=== PATIENT | female | born 1950 | race Caucasian/White ===

== ENCOUNTER → 2020-06-07 15:44 | Outpatient (BNVA) | payer MEDICARE, MEDICAID, SELFPAY | PROVIDERS: Family Provider Nurse Practitioner; PCP Nurse Practitioner; Visit Provider Nurse Practitioner | DX: E03.8 Other specified hypothyroidism (principal); I10 Essential (primary) hypertension; E55.9 Vitamin D deficiency, unspecified | CPT/HCPCS: 80053; 80061; 82306; 84443; 85025 ==

== ENCOUNTER → 2020-10-30 13:38 | Outpatient (BNVA) | payer MEDICARE, MEDICAID, SELFPAY | PROVIDERS: Family Provider Nurse Practitioner; PCP Nurse Practitioner; Visit Provider Nurse Practitioner | DX: E55.9 Vitamin D deficiency, unspecified (principal); I10 Essential (primary) hypertension; E03.8 Other specified hypothyroidism | CPT/HCPCS: 80053; 82306; 84443; 85025 ==

== ENCOUNTER 2021-05-16 13:16 | Inpatient (IN) | payer MEDICARE, MEDICAID, SELFPAY ==
[2021-05-16 14:02] VITALS: BP 142/84; PULSE 111; RESP 16; TEMP 36.6; O2SAT 98; BMI 28.3
--- NOTE | 2021-05-16 14:04 | XR_ITS ---
WS: [id number] Left knee, 3 views, 05/16/2021 Clinical Data: fall, pain Comparison: None. Findings: There is a comminuted fracture of the distal left femur. There is posterior dislocation of the distal femoral fragment. Soft tissue swelling is present about the fracture site. The patella and left knee are intact. XR/XR knee LT 3V* [id number] Impression: Comminuted fracture of distal left femur.
--- NOTE | 2021-05-16 14:06 | W.ED.FALL ---
Documented by User: OMID Bonds 05/16/21 15:33 HPI - Fall General: Chief Complaint: Fall Stated Complaint: FALL/ SHOULDER AND KNEE PAIN Time Seen by Provider: 05/16/21 13:18 History of Present Illness: HPI Narrative: Patient arrived via ambulance complaint of left knee pain. Patient is states that she did hit her shoulder but her shoulder is not bothering now doing fine. Said she thinks maybe she twisted her broke her knee. She said she tripped on her bathroom mat denies any loss of consciousness. complaint: fall Onset (ago): minute(s) Fall from: standing Fall witnessed: no Loss of consciousness: None Context: tripped/slipped Location of injury - extremities: Left: knee Severity: mild Severity scale (1-10): 1 Quality: aching Associated symptoms-after fall: Reports no associated symptoms Review of Systems Const: Denies: fever(s) or chills Resp: Denies: dyspnea Musc: Reports: joint pain (Left knee hurts, left shoulder is fine now she says.) Psych: Denies: anxiety PFSH ED PFSH: Medical History Adult onset hypothyroidism Age-related osteoporosis without current pathological fracture Anemia, unspecified Arteriopathy, intracranial, associated with hemoglobinopathy, remote, resolved 1984 in [place] Chronic obstructive pulmonary disease, unspecified Chronic osteoarthritis Contracture, left foot Dependent on walker for ambulation Environmental and seasonal allergies Essential (primary) hypertension Gastro-esophageal reflux disease without esophagitis Hemiplegia, unspecified affecting left nondominant side Lives in assisted living facility Myofascial pain syndrome Nocturnal oxygen desaturation Urinary incontinence due to immobility Vitamin D deficiency Surgical History History of arteriovenous malformation (AVM) 1985 History of fracture of clavicle History of left hip replacement History of shoulder surgery History of total hysterectomy with bilateral salpingo-oophorectomy (BSO) Family History Mother Cancer Liver Other Hypertension Hypothyroid Social History Smoking and tobacco status: former smoker Lives independently: No Housing: Assisted Living Facility Current gender identity: Female Physical Exam Const: COMMON NORMALS: no acute distress Extremity: LEFT LOWER EXTREMITY: Yes knee joint (Tendernestopalpation no bruising no swelling. Patient does have a brace lo) Psych: COMMON NORMALS: mental status grossly normal Course Vital Signs: Vital signs: Vital Signs Temperature 97.7 F 05/22/21 17:10 Pulse Rate 90 05/22/21 17:10 Respiratory Rate 18 05/22/21 17:10 Blood Pressure 114/62 05/22/21 17:10 Pulse Oximetry 95 05/22/21 17:10 MDM - Fall MDM Narrative: Medical decision making narrative: Patient has left distal femur fracture. There are no beds available at this hospital. Will be plan on transferring patient when we find a bed available. After finding out that the patient can say her spoke with Dr. Cronin agrees to take patient speak to hospitalist and get patient bed. Some beds open per facility at 1500 patient wanting to stay here now I spoke with Dr. Guerin at 1529 admit to the hospitalist and he was here for surgery. Lab Data: Labs: Lab Results 05/16/21 05/16/21 05/16/21 Range/Units 14:42 14:50 14:50 WBC 11.6 H (4.0-10.0) 10^3/ uL RBC 3.79 L (4.1-5.3) 10^6/u L Hgb 12.5 (11.5-15.3) g/dL Hct 38.9 (37.0-47.0) % MCV 102.6 H (81-99) fL MCH 33.0 (28.0-34.0) pg MCHC 32.1 (30.0-36.0) g/dL RDW 12.1 (12.1-15.1) % Plt Count 228 (130-400) 10^3/c mm MPV 8.7 (7.4-10.4) fL Neut % (Auto) 85.2 % Lymph % (Auto) 7.3 % [place] % (Auto) 5.9 % Eos % (Auto) 0.2 % Baso % (Auto) 0.5 % Neut # (Auto) 9.86 H (1.8-7.7) 10^3/u L Lymph # (Auto) 0.8 (0.8-4.8) 10^3/u L [place] # (Auto) 0.7 (0.2-0.9) 10^3/u L Eos # (Auto) 0.0 (0.0-0.8) 10^3/u L Baso # (Auto) 0.1 (0.0-0.1) 10^3/u L Nucleated RBC % (a uto) 0 % Nucleated RBCs # 0.0 /100WBC Sodium 137 (136-145) mmol/L Potassium 5.0 (3.5-5.1) mmol/L Chloride 97 L (98-107) mmol/L Carbon Dioxide 31 H (22-29) mmol/L Anion Gap 14.0 (5-19) BUN 22 (8-23) mg/dL Creatinine 0.9 (0.5-0.9) mg/dL GFR Calculation 61.9 L (90-130) mL/min Glucose 112 (65-115) mg/dL Calculated Osmolal ity 288 (285-295) mOsm/k g Calcium 9.9 (8.5-10.5) mg/dL SARS-CoV-2 Ag (Rap id) Negative (Negative) Discharge Plan Discharge Patient Disposition: Admitted As Inpatient Admit Provider: Aury Hooks Clinical Impression: Femur fracture, left Condition: Stable Discharge Diet: Cardiac Discharge Activity: Limit activity as instructed Sign Out Sign Out Data: Patient Sign Out occurred on 05/16/21 at 16:09. Patient's care was discussed, and care was transferred from to Cristobal Wright DO. Coding Level of Care Code ED Private Household Worker for Chg Fwd Exam Expanded Problem Focused Documented by User: Cristobal Wright DO 05/16/21 16:11 HPI - Fall General: Chief Complaint: Fall Stated Complaint: FALL/ SHOULDER AND KNEE PAIN Time Seen by Provider: 05/16/21 13:18 PFSH ED PFSH: Medical History Adult onset hypothyroidism Age-related osteoporosis without current pathological fracture Anemia, unspecified Arteriopathy, intracranial, associated with hemoglobinopathy, remote, resolved 1984 in [place] Chronic obstructive pulmonary disease, unspecified Chronic osteoarthritis Contracture, left foot Dependent on walker for ambulation Environmental and seasonal allergies Essential (primary) hypertension Gastro-esophageal reflux disease without esophagitis Hemiplegia, unspecified affecting left nondominant side Lives in assisted living facility Myofascial pain syndrome Nocturnal oxygen desaturation Urinary incontinence due to immobility Vitamin D deficiency Surgical History History of arteriovenous malformation (AVM) 1984 History of fracture of clavicle History of left hip replacement History of shoulder surgery History of total hysterectomy with bilateral salpingo-oophorectomy (BSO) Family History Mother Cancer Liver Other Hypertension Hypothyroid Social History Smoking and tobacco status: former smoker Lives independently: No Housing: Assisted Living Facility Current gender identity: Female Course Vital Signs: Vital signs: Vital Signs Temperature 97.7 F 05/22/21 17:10 Pulse Rate 90 05/22/21 17:10 Respiratory Rate 18 05/22/21 17:10 Blood Pressure 114/62 05/22/21 17:10 Pulse Oximetry 95 05/22/21 17:10 MDM - Fall MDM Narrative: Medical decision making narrative: Reviewed case with Albert Hess DEPARTMENT OF MATHEMATICS CHAIR. We will go ahead and admit consult surgery.. Initially we were looking at transferring into an outside facility because there were no beds available. Nurse supervisor furnace room notified us that a bed had become available transfer was canceled will admit here. Lab Data: Labs: Lab Results 05/16/21 05/16/21 05/16/21 Range/Units 14:42 14:50 14:50 WBC 11.6 H (4.0-10.0) 10^3/ uL RBC 3.79 L (4.1-5.3) 10^6/u L Hgb 12.5 (11.5-15.3) g/dL Hct 38.9 (37.0-47.0) % MCV 102.6 H (81-99) fL MCH 33.0 (28.0-34.0) pg MCHC 32.1 (30.0-36.0) g/dL RDW 12.1 (12.1-15.1) % Plt Count 228 (130-400) 10^3/c mm MPV 8.7 (7.4-10.4) fL Neut % (Auto) 85.2 % Lymph % (Auto) 7.3 % [place] % (Auto) 5.9 % Eos % (Auto) 0.2 % Baso % (Auto) 0.5 % Neut # (Auto) 9.86 H (1.8-7.7) 10^3/u L Lymph # (Auto) 0.8 (0.8-4.8) 10^3/u L [place] # (Auto) 0.7 (0.2-0.9) 10^3/u L Eos # (Auto) 0.0 (0.0-0.8) 10^3/u L Baso # (Auto) 0.1 (0.0-0.1) 10^3/u L Nucleated RBC % (a uto) 0 % Nucleated RBCs # 0.0 /100WBC Sodium 137 (136-145) mmol/L Potassium 5.0 (3.5-5.1) mmol/L Chloride 97 L (98-107) mmol/L Carbon Dioxide 31 H (22-29) mmol/L Anion Gap 14.0 (5-19) BUN 22 (8-23) mg/dL Creatinine 0.9 (0.5-0.9) mg/dL GFR Calculation 61.9 L (90-130) mL/min Glucose 112 (65-115) mg/dL Calculated Osmolal ity 288 (285-295) mOsm/k g Calcium 9.9 (8.5-10.5) mg/dL SARS-CoV-2 Ag (Rap id) Negative (Negative) Discharge Plan Discharge Patient Disposition: Admitted As Inpatient Admit Provider: Aury Hooks Clinical Impression: Femur fracture, left Condition: Stable Discharge Diet: Cardiac Discharge Activity: Limit activity as instructed Sign Out Sign Out Data: Patient Sign Out occurred on 05/16/21 at 16:09. Patient's care was discussed, and care was transferred from to Cristobal Wright DO. Coding Level of Care Code ED Private Household Worker for Chg Fwd Exam Expanded Problem Focused Documented by User: Jose Reyes MD 05/26/21 11:04 HPI - Fall General: Chief Complaint: Fall Stated Complaint: FALL/ SHOULDER AND KNEE PAIN Time Seen by Provider: 05/16/21 13:18 PFSH ED PFSH: Medical History Adult onset hypothyroidism Age-related osteoporosis without current pathological fracture Anemia, unspecified Arteriopathy, intracranial, associated with hemoglobinopathy, remote, resolved 1984 in [place] Chronic obstructive pulmonary disease, unspecified Chronic osteoarthritis Contracture, left foot Dependent on walker for ambulation Environmental and seasonal allergies Essential (primary) hypertension Gastro-esophageal reflux disease without esophagitis Hemiplegia, unspecified affecting left nondominant side Lives in assisted living facility Myofascial pain syndrome Nocturnal oxygen desaturation Urinary incontinence due to immobility Vitamin D deficiency Surgical History History of arteriovenous malformation (AVM) 1984 History of fracture of clavicle History of left hip replacement History of shoulder surgery History of total hysterectomy with bilateral salpingo-oophorectomy (BSO) Family History Mother Cancer Liver Other Hypertension Hypothyroid Social History Smoking and tobacco status: former smoker Lives independently: No Housing: Assisted Living Facility Current gender identity: Female Course Vital Signs: Vital signs: Vital Signs Temperature 97.7 F 05/22/21 17:10 Pulse Rate 90 05/22/21 17:10 Respiratory Rate 18 05/22/21 17:10 Blood Pressure 114/62 05/22/21 17:10 Pulse Oximetry 95 05/22/21 17:10 MDM - Fall Lab Data: Labs: Lab Results 05/16/21 05/16/21 05/16/21 Range/Units 14:42 14:50 14:50 WBC 11.6 H (4.0-10.0) 10^3/ uL RBC 3.79 L (4.1-5.3) 10^6/u L Hgb 12.5 (11.5-15.3) g/dL Hct 38.9 (37.0-47.0) % MCV 102.6 H (81-99) fL MCH 33.0 (28.0-34.0) pg MCHC 32.1 (30.0-36.0) g/dL RDW 12.1 (12.1-15.1) % Plt Count 228 (130-400) 10^3/c mm MPV 8.7 (7.4-10.4) fL Neut % (Auto) 85.2 % Lymph % (Auto) 7.3 % [place] % (Auto) 5.9 % Eos % (Auto) 0.2 % Baso % (Auto) 0.5 % Neut # (Auto) 9.86 H (1.8-7.7) 10^3/u L Lymph # (Auto) 0.8 (0.8-4.8) 10^3/u L [place] # (Auto) 0.7 (0.2-0.9) 10^3/u L Eos # (Auto) 0.0 (0.0-0.8) 10^3/u L Baso # (Auto) 0.1 (0.0-0.1) 10^3/u L Nucleated RBC % (a uto) 0 % Nucleated RBCs # 0.0 /100WBC Sodium 137 (136-145) mmol/L Potassium 5.0 (3.5-5.1) mmol/L Chloride 97 L (98-107) mmol/L Carbon Dioxide 31 H (22-29) mmol/L Anion Gap 14.0 (5-19) BUN 22 (8-23) mg/dL Creatinine 0.9 (0.5-0.9) mg/dL GFR Calculation 61.9 L (90-130) mL/min Glucose 112 (65-115) mg/dL Calculated Osmolal ity 288 (285-295) mOsm/k g Calcium 9.9 (8.5-10.5) mg/dL SARS-CoV-2 Ag (Rap id) Negative (Negative) Discharge Plan Discharge Patient Disposition: Admitted As Inpatient Admit Provider: Aury Hooks Clinical Impression: Femur fracture, left Condition: Stable Discharge Diet: Cardiac Discharge Activity: Limit activity as instructed Sign Out Sign Out Data: Patient Sign Out occurred on 05/16/21 at 16:09. Patient's care was discussed, and care was transferred from to Cristobal Wright DO. Coding Level of Care Code ED Private Household Worker for Chg Fwd Exam Expanded Problem Focused
--- NOTE | 2021-05-16 14:34 | ECG_ITS ---
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 Measurements Intervals [place] Rate: 98 P: 46 GA: 156 QRS: -24 QRSD: 81 T: 31 QT: 314 QTc: 401 Interpretive Statements SINUS RHYTHM POSSIBLE LEFT ATRIAL ENLARGEMENT [-0.1mV P WAVE IN V1/V2] BORDERLINE LEFT AXIS DEVIATION [QRS AXIS < -20] POSSIBLE LEFT VENTRICULAR HYPERTROPHY [VOLTAGE CRITERIA PLUS LAE OR QRS WIDENING] Compared to ECG 12/09/2018 15:49:19 T-wave abnormality no longer present Electronically Signed On 05-17-2021 6:13:55 CDT by Millie Concepcion M.D. [email or web address]
[2021-05-16 15:01] LABS: Basophils # 0.1 10^3/uL (0.0-0.1); Basophils % 0.5 %; Eosinophils % 0.2 %; Hematocrit 38.9 % (37.0-47.0); Hemoglobin 12.5 g/dL (11.5-15.3); Lymphocytes # 0.8 10^3/uL (0.8-4.8); Lymphocytes % 7.3 %; Mean Corpuscular HGB Conc 32.1 g/dL (30.0-36.0); Mean Corpuscular Volume 102.6 fL (81-99); Mean Platelet Volume 8.7 fL (7.4-10.4); Monocytes # 0.7 10^3/uL (0.2-0.9); Monocytes % 5.9 %; Neutrophils # 9.86 10^3/uL (1.8-7.7); Neutrophils % 85.2 %; Nucleated Red Blood Cells % 0 %; Platelet Count 228 10^3/cmm (130-400); Red Blood Count 3.79 10^6/uL (4.1-5.3); Red Cell Distribution Width 12.1 % (12.1-15.1); White Blood Count 11.6 10^3/uL (4.0-10.0)
[2021-05-16 15:17] LABS: SARS Covid-2 Antigen Negative (Negative)
[2021-05-16 15:19] LABS: Blood Urea Nitrogen 22 mg/dL (8-23); Calcium 9.9 mg/dL (8.5-10.5); Carbon Dioxide 31 mmol/L (22-29); Chloride 97 mmol/L (98-107); Glomerular Filtration Rate 61.9 mL/min (90-130); Glucose 112 mg/dL (65-115); Osmolality Calculated 288 mOsm/kg (285-295); Sodium 137 mmol/L (136-145)
[2021-05-16 16:06] VITALS: BP 188/120; PULSE 108; RESP 16; O2SAT 100
[2021-05-16 19:00] VITALS: BP 159/83; PULSE 109; RESP 16; O2SAT 95
[2021-05-16 20:05] VITALS: BP 142/76; PULSE 97; RESP 18; TEMP 36.7; O2SAT 97
[2021-05-16] MEDS: D5-NS 0.45% + KCL 20 mEq 20 MEQ/1,000 ML BAG 100 MEQ IV (20:49)
[2021-05-16 21:46] VITALS: RESP 18
[2021-05-16] MEDS: HYDROmorphone 1 mg/mL INJ 1 mL 0.2 MG IVP (21:46)
[2021-05-16 23:15] VITALS: BP 134/85; PULSE 88; RESP 18; TEMP 36.8; O2SAT 96
[2021-05-17] VITALS (22 sets, daily range): BP systolic 82–149; BP diastolic 63–98; PULSE 60–108; RESP 12–21; TEMP 36.1–38.1; O2SAT 92–100
--- NOTE | 2021-05-17 | SCC_ITS ---
Procedure Done: Open reduction internal fixation left supracondylar femur 110.5 seconds of fluoroscopic guidance, for a cumulative dose of 9.6 mGy, was provided to Dr. Guerin by the radiology department. C-arm images of the LEFT femur were saved for the patient's permanent record. [facility]
[2021-05-17] MEDS: HYDROmorphone 1 mg/mL INJ 1 mL 0.2 MG IVP (02:27)
--- NOTE | 2021-05-17 06:00 | PC.NURSE ---
pt down to surgery
--- NOTE | 2021-05-17 06:40 | P.ANESASSM_ITS ---
Pre-Anesthetic Assessment Pre-Anesthetic Assessment: Height/Weight: Height 1.6 m Weight 72.575 kg Temp Pulse Resp BP Pulse Ox 97.9 F 88 18 143/66 96 05/17/21 04:45 05/17/21 04:45 05/17/21 04:45 05/17/21 04:45 05/17/21 04:45 Preop Diagnosis: Femur Fracture Proposed Procedure: Operation Date: 05/17/21 07:30 Proposed Procedures p ORIF Femur(Left) - Farhad Guerin MD Familial anesthetic complications: none Was Beta Bruce taken within 24 hours: N/A Was Clonidine taken within 24 hours: N/A Last intake: > 8 hrs Social: Social History: No alcohol and No tobacco Exam: Pre-Anes Outpt Exam: alert, oriented x 3, clear to auscultation sunitha aterally and regular rate & rhythm Airway: Cervical ROM: WNL MP: 2 Dentition: Full Pulmonary: Pulmonary: COPD (On 2 L NC at home, periodic shortness of breath) CV/HEM: CV/HEM: HTN GI: GI: GERD Metabolic: Metabolic: Thyroid Neuropsych: Comments: L hemiplegia/immobility - 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 AVM Anesthetic Plan: ASA status: 4 Anesthesia: Regional (specify below) (spinal) Risk of > 500 ml blood loss (7ml/kg in children): No Meds/Allergies Current Medications: Current Medications Generic Name Dose Route Start Last Admin Trade Name Freq PRN Reason Stop Dose Admin Hydromorphone HCl 0.2 mg 05/16/21 21:11 05/17/21 02:27 Hydromorphone 1 Mg/Ml Inj 1 Ml IVP 0.2 mg Q4H PRN Administration SEVERE PAIN Potassium Chloride /Dextrose/Sod Cl 20 meq in 1,000 m ls @ 100 mls/hr 05/16/21 19:44 05/16/21 20:49 D5-Ns 0.45% + Kaushik l 20 Meq IV 100 mls/hr .Q10H BUFFY Administration PFSH Anesthesia PFSH: Medical History Adult onset hypothyroidism Age-related osteoporosis without current pathological fracture Anemia, unspecified Arteriopathy, intracranial, associated with hemoglobinopathy, remote, resolved 1984 in [place] Chronic obstructive pulmonary disease, unspecified Chronic osteoarthritis Contracture, left foot Dependent on walker for ambulation Environmental and seasonal allergies Essential (primary) hypertension Gastro-esophageal reflux disease without esophagitis Hemiplegia, unspecified affecting left nondominant side Lives in assisted living facility Myofascial pain syndrome Nocturnal oxygen desaturation Urinary incontinence due to immobility Vitamin D deficiency Surgical History History of arteriovenous malformation (AVM) 1985 History of fracture of clavicle History of left hip replacement History of shoulder surgery History of total hysterectomy with bilateral salpingo-oophorectomy (BSO) Family History Mother Cancer Liver Other Hypertension Hypothyroid Social History Smoking and tobacco status: former smoker Lives independently: No Housing: Assisted Living Facility Current gender identity: Female Data Anesthesia CBC & Chem 7: 05/16/21 14:50 05/16/21 14:50 Other Labs: Laboratory Results - last 48 hr 05/16/21 05/16/21 05/16/21 14:42 14:50 14:50 WBC 11.6 H RBC 3.79 L Hgb 12.5 Hct 38.9 MCV 102.6 H MCH 33.0 MCHC 32.1 RDW 12.1 Plt Count 228 MPV 8.7 Neut % (Auto) 85.2 Lymph % (Auto) 7.3 [place] % (Auto) 5.9 Eos % (Auto) 0.2 Baso % (Auto) 0.5 Neut # (Auto) 9.86 H Lymph # (Auto) 0.8 [place] # (Auto) 0.7 Eos # (Auto) 0.0 Baso # (Auto) 0.1 Nucleated RBC % (auto) 0 Nucleated RBCs # 0.0 Sodium 137 Potassium 5.0 Chloride 97 L Carbon Dioxide 31 H Anion Gap 14.0 BUN 22 Creatinine 0.9 GFR Calculation 61.9 L Glucose 112 Calculated Osmolality 288 Calcium 9.9 SARS-CoV-2 Ag (Rapid) Negative Cardiac Studies: No Data to Display
[2021-05-17 06:43] LABS: Basophils % 0.4 %; Eosinophils % 0.4 %; Hematocrit 31.5 % (37.0-47.0); Hemoglobin 9.9 g/dL (11.5-15.3); Lymphocytes # 1.6 10^3/uL (0.8-4.8); Lymphocytes % 19.7 %; Mean Corpuscular HGB Conc 31.4 g/dL (30.0-36.0); Mean Corpuscular Hemoglobin 33.4 pg (28.0-34.0); Mean Corpuscular Volume 106.4 fL (81-99); Mean Platelet Volume 9.4 fL (7.4-10.4); Monocytes # 0.8 10^3/uL (0.2-0.9); Monocytes % 10.4 %; Neutrophils # 5.52 10^3/uL (1.8-7.7); Neutrophils % 68.6 %; Nucleated Red Blood Cells % 0 %; Platelet Count 218 10^3/cmm (130-400); Red Blood Count 2.96 10^6/uL (4.1-5.3); Red Cell Distribution Width 12.2 % (12.1-15.1)
[2021-05-17 07:04] LABS: Anion Gap 11.9 (5-19); Blood Urea Nitrogen 20 mg/dL (8-23); Calcium 8.8 mg/dL (8.5-10.5); Carbon Dioxide 28 mmol/L (22-29); Chloride 101 mmol/L (98-107); Creatinine Clr Calc Pharmacy 62.4647; Glomerular Filtration Rate 70.9 mL/min (90-130); Glucose 109 mg/dL (65-115); Osmolality Calculated 285 mOsm/kg (285-295); Potassium 4.9 mmol/L (3.5-5.1); Sodium 136 mmol/L (136-145)
--- NOTE | 2021-05-17 07:07 | P.CONIM_ITS ---
Providers/Reason For Consult Consulting Physician/Specialty*: Farhad Guerin MD orthopedic surgery Reason for Consult*: Left supracondylar femur fracture Attending Physician: Aury Hooks Primary Care Provider: ALHAJI Melgoza History of Present Illness History of Present Illness Nicole Oseguera is a 71 year old female tripped over a bathroom floor mat yet pain in her left knee. She was transferred to our emergency room radiographs revealed she denies any neck or back or other extremity pain. a supracondylar left femur fracture. She is admitted to medicine and orthopedics is consulted for management of that. 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 She is ambulatory with a brace on the left and a walker. Meds/Allergies Home Medications and Allergies Home Medications Medication Instructions Recorded Confirmed Last Taken Type acetaminophen 325 mg capsule 650 mg PO Q6H PRN 12/02/19 05/16/21 Unknown History albuterol sulfate 2.5 mg INHALATION BID@0800,199912/02/19 05/16/21 05/16/21 History calcium 600 mg-D3 800 unit-mag11 1 tab PO BID@08,199912/02/19 05/16/21 05/16/21 History 50 hk-vtzp-huvwjp-etta-s.borat tablet carbamazepine 200 mg tablet 200 mg PO BID@08,199912/02/19 05/16/21 05/16/21 History diaper,brief,adult,disposable #120 each 12/02/19 05/16/21 Unknown Rx fluticasone fur. 100 mcg-umeclid 1 inh INHALATION Q24H #28 each 12/02/19 05/16/21 05/16/21 Rx 62.5 mcg-vilant 25 mcg inhalat.powder guaifenesin 600 mg tablet, 600 mg PO BID@799,199912/02/19 05/16/21 05/16/21 History extended release 12 hr pantoprazole 40 mg tablet,delayed 40 mg PO DAILY@0800 12/02/19 05/16/21 05/16/21 History release potassium chloride 10 mEq 10 meq PO BID@0800,199912/02/19 05/16/21 05/16/21 History capsule,extended release guaifenesin 100 mg/5 mL oral liquid 200 mg PO Q4H PRN #473 ml 06/01/20 05/16/21 Unknown Rx Left foot and leg brace #1 ea 07/21/20 05/16/21 Unknown Rx furosemide 20 mg tablet 20 mg PO DAILY@0800 tab 08/22/20 05/16/21 05/16/21 History cyclobenzaprine 10 mg tablet 10 mg PO TID PRN #90 tab 03/06/21 05/16/21 05/16/21 Rx Celebrex 100 mg PO BID@08,199905/16/21 05/16/21 05/16/21 History Milk of Magnesia 30 ml PO Q4H PRN 05/16/21 05/16/21 Unknown History Zyrtec 10 mg PO DAILY@79905/16/21 05/16/21 05/16/21 History albuterol sulfate [ProAir HFA] 2 puff INHALATION Q6H PRN 05/16/21 05/16/21 Unknown History calcium carbonate [Tums 500] 500 mg PO QID PRN 05/16/21 05/16/21 Unknown History cholecalciferol (vitamin D3) 125 mcg PO DAILY@0805/16/21 05/16/21 05/16/21 History levothyroxine 50 mcg PO DAILY@59905/16/21 05/16/21 05/16/21 History multivitamin,tx-minerals [Super 1 tab PO DAILY 05/16/21 05/16/21 05/16/21 History Thera Galina M] sodium chloride 1,000 mg PO BID@799,199905/16/21 05/16/21 05/16/21 History valsartan 80 mg PO DAILY@0805/16/21 05/16/21 05/16/21 History Allergies Allergy/AdvReac Type Severity Reaction Status Date / Time codeine Allergy Unknown Unknown Verified 05/16/21 14:06 morphine Allergy Unknown Unknown Verified 05/16/21 14:06 lisinopril AdvReac Intermediate Cough Verified 05/16/21 14:06 Current Medications Current Medications Generic Name Dose Route Start Last Admin Trade Name Freq PRN Reason Stop Dose Admin Hydromorphone HCl 0.2 mg 05/16/21 21:11 05/17/21 02:27 Hydromorphone 1 Mg/Ml Inj 1 Ml IVP 0.2 mg Q4H PRN Administration SEVERE PAIN Potassium Chloride/Dextrose/Sod Cl 20 meq in 1,000 mls @ 100 mls/hr 05/16/21 19:44 05/17/21 06:48 D5-Ns 0.45% + Kcl 20 Meq IV Infused .Q10H BUFFY Infusion PFSH Acute PFSH: Medical History Adult onset hypothyroidism Age-related osteoporosis without current pathological fracture Anemia, unspecified Arteriopathy, intracranial, associated with hemoglobinopathy, remote, resolved 1984 in [place] Chronic obstructive pulmonary disease, unspecified Chronic osteoarthritis Contracture, left foot Dependent on walker for ambulation Environmental and seasonal allergies Essential (primary) hypertension Gastro-esophageal reflux disease without esophagitis Hemiplegia, unspecified affecting left nondominant side Lives in assisted living facility Myofascial pain syndrome Nocturnal oxygen desaturation Urinary incontinence due to immobility Vitamin D deficiency Surgical History History of arteriovenous malformation (AVM) 1984 History of fracture of clavicle History of left hip replacement History of shoulder surgery History of total hysterectomy with bilateral salpingo-oophorectomy (BSO) Family History Mother Cancer Liver Other Hypertension Hypothyroid Social History Smoking and tobacco status: former smoker Lives independently: No Housing: Assisted Living Facility Current gender identity: Female Vitals/I&O/Wt Last Vital Signs Temp 97.9 F 05/17/21 04:45 Pulse 93 05/17/21 06:50 Resp 18 05/17/21 06:50 BP 122/98 05/17/21 06:50 Pulse Ox 96 05/17/21 06:50 05/16/21 05/17/21 05/17/21 22:59 06:59 14:59 Intake Total 120 / 120 1000 / 1120 Balance 120 / 120 1000 / 1120 Weight last 48 hrs Weight 160 lb Physical Exam Narrative: EXAM NARRATIVE: HEAD: Normocephalic/atraumatic. NECK: Soft supple nontender. HEART: Normal heart sounds, regular rhythm. CHEST: Clear to auscultation. ABDOMEN: Soft nontender nondistended. LEFT LEG Patient has swelling and internal rotation of the left distal femur. 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 Sensation is intact light touch Data Imaging^: Xray Ortho: My impression: 2 views of the left knee are reviewed. The patient has a fractur e of the left supracondylar femur. I can see no intra-articular displacement A&P Assessment and plan (1) Femur fracture, left: The patient has a displaced left I told her the best option for pain control and to allow her to be mobilized would be surgical stabilization. She has significant underlying osteopenia and I think intramedullary device would be our best choice. I discussed risk of nonunion and malunion. I discussed risk of medical complications. She has a significant vascular history. Medicine is admitting and will assist with management of medical comorbidities. Discussed risk of deep venous thromboses and pulmonary emboli. I discussed anesthetic risk. I see no obvious medical contraindications. We will proceed to surgery this morning. Status: Acute Coding Level of Care Code Acute Medical Investigator for [facility] Diagnoses Femur fracture, left S72.92XA
[2021-05-17] MEDS: sodium chloride 0.9% 1,000 ML 30 ML IV (07:09)
--- NOTE | 2021-05-17 10:27 | XR_ITS ---
WS: [id number] Left femur and thigh, C-arm fluoroscopy in the OR, 05/17/2021 Clinical Data: OR PICS Comparison: Left knee, 05/16/2021. Findings: There is an intramedullary chase in the distal left femur fixed with proximal and distal screws. The chase is reducing the comminuted fracture of the distal left femur. XR/XR femur LT min 2V* [id number] Impression: Internal fixation of comminuted fracture of distal left femur.
--- NOTE | 2021-05-17 10:34 | P.PCN_ITS ---
PACU note PACU note: VSS, Good respiratory effort, report to CHIEF INFORMATION SECURITY OFFICER Post-Anesthesia Exam: awake
--- NOTE | 2021-05-17 10:34 | PM.PACU ---
PACU note PACU note: VSS, Good respiratory effort, report to CONSULTING SALES EXECUTIVE Post-Anesthesia Exam: awake
--- NOTE | 2021-05-17 10:41 | PM.OP ---
Operative Report Date of procedure: May 17, 2021 Pre-op Diagnosis: Left supracondylar femur Fracture Post-op diagnosis: same Post-op Findings: Same Procedure Done: Open reduction internal fixation left supracondylar femur Implants: [place] T2 SCN nail [id number] Pathology: none sent Surgeon: Farhad Guerin Anesthesia: Nerve Block (Spinal) Estimated blood loss (mL): 200 Findings: The patient had a comminuted left supracondylar femur fracture. Condition: stable Disposition: PACU Procedure: The patient was taken to the operating room and given a spinal anesthesia. She is given 2 g of Ancef. She is prepped and draped the supine position with her left leg exposed a timeout was performed. A 10 cm long incision incision was made over the anterior knee and the knee entered through a medial parapatellar approach. The patella could be displaced laterally. With traction across the femur and a bone hook applied along the lateral distal fragment cortex of the femur could be brought and maintained out to length. A guidepin was driven from a point just anterior to the intercondylar notch proximally into the proximal fragment. Over this was passed the proximal reamer. A ball-tipped guidepin was passed and sequential reaming was performed up to the tip of a previously placed hip arthroplasty to a 14 reamer. Length of the pin buried in the femur was identified and found to be 220mm. A 200 x 13 mm diameter nail was chosen and passed down the canal with minimal difficulty. Working through the incision to lateral toe medial bolts were placed in the proximal and distal screws. Anterior lateral and posterior lateral directed screw were placed to the central holes with a modest purchase. The targeting guide was then placed and 2 lateral to medial screws placed. Wounds were irrigated with saline. The 2 lateral openings used to place proximal locking screws and 2 medial openings used to place knots were closed with deep 0 Vicryl. The parapatellar incision was closed with a running 1 Stratafix, subcutaneous fat with 2-0 Stratafix and the skin was closed with a running 3 oh Stratafix. Incisions were covered with Xeroflo gauze 4 x 4's ABD pads. Her leg was wrapped in a compressive web roll and Jayme wrap dressing and placed in a knee immobilizer. She was taken recovery in stable condition.
--- NOTE | 2021-05-17 11:41 | PC.OT ---
Order received. Will see tomorrow in order to allow recovery from surgery.
[2021-05-17] MEDS: oxyCODONE 5 mg IR Tab/Cap PO ×3 (13:06→20:22)
--- NOTE | 2021-05-17 13:54 | PC.CHAP ---
Pastoral Care Encounter/Spiritual Assessment Type of Contact [] Declined patcher bowling ball visit [] Patient/Family/Request visit [] Outpatient visit [] Follow-up visit [] Physician referral [] Code/Alert [] Routine visit [] Staff referral [] Actively dying [] Patient sleeping [] Family support [] [xx] Out of room [] Palliative care [] [] Receiving care in room [] Pre-surgical visit [] Trauma [] Long length of stay [] ICU visit [xx] Other: Patient out of room for surgery. Relational/Emotional Strength [] Patient feels connected with others/family/visitors/staff [] Distress [] Loneliness/isolation [] Abandonment Spirituality of Patient [] Person of Yovana [] Attends Latter-Day of their Yovana [] Believes in Prayer [] Reads Bible or Church materials [] There are Spiritual issues to be addressed Porcelain Finisher Interventions [] Prayer [] Active listening [] Non-anxious presence [] Spiritual/emotional support [] Crisis/trauma care [] Spiritual counseling [] Bereavement support [] Provided bereavement packet [] Provided Bible/devotional materials [] Provided toy/stuffed animal, coloring book to patient or family member [] Provided Communion [] Anointing/[place] [] Salvation [] Completed spiritual assessment [] Other: Impact on Illness or Injury [] Angry [] Fearful [] Anxious [] Often cries [] Exhaustion [] Unable to work [] Unable to attend holiness [] Unable to walk/stand [] Unable to read [] Unable to drive [] Unable to eat/drink [] Unable to sleep [] Unable to be with family [] Patient intubated [] Other: Summary Follow up later Time spent with patient 1 minute
[2021-05-17] MEDS: cyclobenzaprine 10 mg Tablet PO (14:29)
--- NOTE | 2021-05-17 15:23 | ANE.PACU2 ---
Inpatient post-anesthesia follow up: Airway intact: Yes Vital signs: Temperature 98.0 F Pulse Rate [Apical ] 111 Pulse Rate 88 Respiratory Rate 20 Blood Pressure [Le ft Arm] 142/84 Blood Pressure 138/85 Pulse Oximetry 98 Oxygen Delivery Me thod Nasal Cannula Oxygen Flow Rate 4 Fraction of Inspir ed Oxygen Hydration adequate: Yes Nausea and vomiting: No Pain level: 2 Mental status: Baseline
--- NOTE | 2021-05-17 15:37 | P.HP_ITS ---
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 Appa rently patient had been complaining of left knee pain. She was noted to have a supracondylar left femoral fracture.Patient was seen by orthopedic surgery and taken to OR todayFor open reduction internal fixation of left supracondylar femoral fracture. Postoperatively patient was complaining of pain otherwise stable. She had denies any symptoms prior to the fall. No head trauma or loss of conscious.Laboratory workup initially on 05/16/2021 had showed a WBC of 11.6, hemoglobin 12.5, hematocrit 38.9 and platelet count 228. Sodium 137, potassium 5.0, chloride 97, bicarb 31, BUN 22 and creatinine of 0.9. COVID-19 was negative. Review of Systems General: Reports: 10 or more systems reviewed and unremarkable except in HPI and below Medications/Allergies Home Medications Medication Instructions Recorded Confirmed Last Taken Type acetaminophen 325 mg capsule 650 mg PO Q6H PRN 12/02/19 05/16/21 Unknown History albuterol sulfate 2.5 mg INHALATION BID@799,1999 ml 12/02/19 05/16/21 05/16/21 History calcium 600 mg-D3 800 unit-mag11 1 tab PO BID@12/02/19 05/16/21 05/16/21 History 50 mb-dyhk-ivvrso-etta-s.borat tablet carbamazepine 200 mg tablet 200 mg PO BID@0800,199912/02/19 05/16/21 05/16/21 History diaper,brief,adult,disposable #120 each 12/02/19 05/16/21 Unknown Rx fluticasone fur. 100 mcg-umeclid 1 inh INHALATION Q24H #28 each 12/02/19 05/16/21 05/16/21 Rx 62.5 mcg-vilant 25 mcg inhalat.powder guaifenesin 600 mg tablet, 600 mg PO BID@12/02/19 05/16/2121 History extended release 12 hr pantoprazole 40 mg tablet,delayed 40 mg PO DAILY@0812/02/19 05/16/21 05/16/21 History release potassium chloride 10 mEq 10 meq PO BID@0800,199912/02/19 05/16/21 05/16/21 History capsule,extended release guaifenesin 100 mg/5 mL oral liquid 200 mg PO Q4H PRN #473 ml 06/01/20 05/16/21 Unknown Rx Left foot and leg brace #1 ea 07/21/20 05/16/21 Unknown Rx furosemide 20 mg tablet 20 mg PO DAILY@0800 tab 08/22/20 05/16/21 05/16/21 History cyclobenzaprine 10 mg tablet 10 mg PO TID PRN #90 tab 03/06/21 05/16/21 05/16/21 Rx Celebrex 100 mg PO BID@08,199905/16/21 05/16/21 05/16/21 History Milk of Magnesia 30 ml PO Q4H PRN 05/16/21 05/16/21 Unknown History Zyrtec 10 mg PO DAILY@79905/16/21 05/16/21 05/16/21 History albuterol sulfate [ProAir HFA] 2 puff INHALATION Q6H PRN 05/16/21 05/16/21 Unknown History calcium carbonate [Tums 500] 500 mg PO QID PRN 05/16/21 05/16/21 Unknown History cholecalciferol (vitamin D3) 125 mcg PO DAILY@79905/16/21 05/16/21 05/16/21 History levothyroxine 50 mcg PO DAILY@59905/16/21 05/16/21 05/16/21 History multivitamin,tx-minerals [Super 1 tab PO DAILY 05/16/21 05/16/21 05/16/21 History Thera Galina M] sodium chloride 1,000 mg PO BID@799,199905/16/21 05/16/21 05/16/21 History valsartan 80 mg PO DAILY@79905/16/21 05/16/21 05/16/21 History Allergies Allergy/AdvReac Type Severity Reaction Status Date / Time codeine Allergy Unknown Unknown Verified 05/16/21 14:06 morphine Allergy Unknown Unknown Verified 05/16/21 14:06 lisinopril AdvReac Intermediate Cough Verified 05/16/21 14:06 PFSH Acute PFSH: Medical History Adult onset hypothyroidism Age-related osteoporosis without current pathological fracture Anemia, unspecified Arteriopathy, intracranial, associated with hemoglobinopathy, remote, resolved 1984 in [place] Chronic obstructive pulmonary disease, unspecified Chronic osteoarthritis Contracture, left foot Dependent on walker for ambulation Environmental and seasonal allergies Essential (primary) hypertension Gastro-esophageal reflux disease without esophagitis Hemiplegia, unspecified affecting left nondominant side Lives in assisted living facility Myofascial pain syndrome Nocturnal oxygen desaturation Urinary incontinence due to immobility Vitamin D deficiency Surgical History History of arteriovenous malformation (AVM) 1984 History of fracture of clavicle History of left hip replacement History of shoulder surgery History of total hysterectomy with bilateral salpingo-oophorectomy (BSO) Family History Mother Cancer Liver Other Hypertension Hypothyroid Social History Smoking and tobacco status: former smoker Lives independently: No Housing: Assisted Living Facility Current gender identity: Female Vitals/I&O/Wt Last Vital Signs Temp 98.0 F 05/17/21 14:00 Pulse 88 05/17/21 15:09 Resp 20 H 05/17/21 15:09 BP 138/85 05/17/21 14:00 Pulse Ox 98 05/17/21 15:09 05/17/21 05/17/21 05/17/21 06:59 14:59 22:59 Intake Total 1000 / 1120 350 / 350 Output Total 300 / 300 Balance 1000 / 1120 50 / 50 Weight last 48 hrs Weight 72.575 kg Physical Exam Narrative: EXAM NARRATIVE: General-alert awake and oriented x3 HEENT-grossly unremarkable CVS-regular rate rhythm Chest- nonlabored respiration Abdomen- soft nontender nondistended Extremities- post-op left ORIF Urinary Catheter Management^: Granado: Cath Placed During This Visit: yes Urinary Catheter Date of Insertion: 05/17/21 Urinary Catheter Time of Insertion: 08:30 Data : 05/17/21 05:53 05/17/21 05:53 A&P Assessment and plan (1) Femur fracture, left: Status: Acute (2) Adult onset hypothyroidism: Status: Chronic (3) Urinary incontinence due to immobility: Status: Chronic (4) Essential (primary) hypertension: Status: Chronic (5) Chronic obstructive pulmonary disease, unspecified: Status: Chronic Qualifiers: COPD type: emphysema Emphysema type: unspecified Qualified Code(s): J43.9 - Emphysema, unspecified (6) Anemia, unspecified: Status: Chronic Additional A&P Information Mechanical fall with left distal femoral fracture s/p ORIF Post op management per ortho Pain control PT consult Celebrex 200 mg PO BID Flexeril 10 mg TID PRN Oxycodone 5-10 mg PO Q4hr PRN Hx of CVA with residual L. Spastic hemiplegia Fall precautions PT on consult Chronic obstructive pulmonary disease Duoneb PRN Supplemental o2 as needed W/o evidence of exacerbation Anemia Due to acute blood loss Monitor h/h Transfused if less than 7 Hypothyroidism Synthroid 50 mcg PO daily Obstructive sleep apnea Continue nocturnal O2 as needed GERD Protonix 40 mg PO daily DVT ppx Lovenox 40 mg SQ daily Attestations Medical Necessity Statement*: Anticipate over2 midnights stay in hospital for evaluation treatment of femoral fracture and postoperative care Time Spent in Patient Care: Greater than 35 minutes (>than 50% of time spent in counselling and/or direct pt care on unit) . Coding Level of Care Code Acute Fermentation Engineer for [facility] Fwd Diagnoses Femur fracture, left S72.92XA Adult onset hypothyroidism E03.8 Urinary incontinence due to immobility R39.81 Essential (primary) hypertension I10 Chronic obstructive pulmonary disease, unspecified J43.9 COPD type: emphysema Emphysema type: unspecified Anemia, unspecified D64.9
[2021-05-17] MEDS: ceFAZolin 1,000 MG in sodium chloride 0.9% (plus) 50 ML 100 MG IV (16:05)
[2021-05-17] MEDS: carBAMazepine 200 mg Tablet PO (20:19)
[2021-05-17] MEDS: CELEcoxib 100 mg Capsule 200 MG PO (20:20)
[2021-05-17] MEDS: guaiFENesin 600 mg Tablet PO (20:21)
[2021-05-17] MEDS: potassium chloride ER 10 mEq Tablet PO (20:21)
[2021-05-17] MEDS: enoxaparin 40 mg/0.4 mL Syringe SUBCUT (22:55)
[2021-05-18] VITALS (12 sets, daily range): BP systolic 128–164; BP diastolic 78–93; PULSE 79–100; RESP 16–20; TEMP 36.4–37.1; O2SAT 95–98
[2021-05-18] MEDS: ceFAZolin 1,000 MG in sodium chloride 0.9% (plus) 50 ML 100 MG IV ×2 (00:11→09:31)
[2021-05-18] MEDS: oxyCODONE 5 mg IR Tab/Cap PO ×3 (01:43→20:54)
[2021-05-18] MEDS: levothyroxine 50 mcg Tablet PO (06:19)
[2021-05-18 06:54] LABS: Basophils % 0.3 %; Eosinophils % 0.1 %; Hematocrit 26.6 % (37.0-47.0); Hemoglobin 8.5 g/dL (11.5-15.3); Lymphocytes # 1.5 10^3/uL (0.8-4.8); Mean Corpuscular Hemoglobin 32.9 pg (28.0-34.0); Mean Corpuscular Volume 103.1 fL (81-99); Mean Platelet Volume 9.7 fL (7.4-10.4); Monocytes # 1.4 10^3/uL (0.2-0.9); Monocytes % 11.8 %; Neutrophils # 9.22 10^3/uL (1.8-7.7); Neutrophils % 75.2 %; Nucleated Red Blood Cells % 0 %; Platelet Count 218 10^3/cmm (130-400); Red Blood Count 2.58 10^6/uL (4.1-5.3); Red Cell Distribution Width 12.2 % (12.1-15.1); White Blood Count 12.3 10^3/uL (4.0-10.0)
[2021-05-18 07:09] LABS: Anion Gap 10.9 (5-19); Blood Urea Nitrogen 17 mg/dL (8-23); Calcium 8.6 mg/dL (8.5-10.5); Carbon Dioxide 27 mmol/L (22-29); Chloride 99 mmol/L (98-107); Creatinine Clr Calc Pharmacy 62.4647; Glomerular Filtration Rate 70.9 mL/min (90-130); Glucose 120 mg/dL (65-115); Osmolality Calculated 277 mOsm/kg (285-295); Potassium 4.9 mmol/L (3.5-5.1); Sodium 132 mmol/L (136-145)
--- NOTE | 2021-05-18 09:10 | PC.NURSE ---
Pt was having a difficult time breathing and requested her rescue inhaler. Pulled the inhaler and she had 2 puffs.She was able to breath better after the inhaler. Informed Respiratory.
[2021-05-18] MEDS: cetirizine 10 mg Tablet PO (09:15)
[2021-05-18] MEDS: cholecalciferol (vitamin D3) 5,000 unit Tablet 5000 UNIT PO (09:15)
[2021-05-18] MEDS: carBAMazepine 200 mg Tablet PO ×2 (09:16→20:54)
[2021-05-18] MEDS: FUROsemide 20 mg Tablet PO (09:16)
[2021-05-18] MEDS: guaiFENesin 600 mg Tablet PO ×2 (09:16→20:54)
[2021-05-18] MEDS: potassium chloride ER 10 mEq Tablet PO ×2 (09:17→20:54)
[2021-05-18] MEDS: losartan 50 mg Tablet 25 MG PO (09:17)
[2021-05-18] MEDS: pantoprazole DR 40 mg Tablet PO (09:29)
[2021-05-18] MEDS: CELEcoxib 100 mg Capsule 200 MG PO ×2 (09:41→20:54)
[2021-05-18 11:00] LABS: Glucose Point of Care 144 mg/dL (70-110)
--- NOTE | 2021-05-18 14:31 | P.PN_ITS ---
Subjective Subjective: Interval history: Patient was complaining of left shoulderPain otherwise no new clinical events overnight. Medications: Reviewed: Yes Vitals/I&O/Wt Last Vital Signs Temp 98.0 F 05/18/21 12:00 Pulse 79 05/18/21 12:00 Resp 16 05/18/21 12:00 BP 140/93 05/18/21 12:00 Pulse Ox 95 05/18/21 12:00 05/17/21 05/18/21 05/18/21 22:59 06:59 14:59 Intake Total 290 / 640 50 / 690 470 / 470 Output Total 400 / 700 300 / 1000 Balance -110 / -60 -250 / -310 470 / 470 Physical Exam Narrative: EXAM NARRATIVE: General-alert awake and oriented x3 HEENT-grossly unremarkable CVS-Normal sinus rhythm Chest- nonlabored respiration Abdomen- soft nontender nondistended Extremities- post-op left ORIF Urinary Catheter Management^: Granado: Cath Placed During This Visit: yes Reason for Continuing Indwelling Catheter: Perioperative Use in Selected Surgeries Urinary Catheter Date of Insertion: 05/17/21 Urinary Catheter Time of Insertion: 08:30 Data : 05/18/21 06:20 05/18/21 06:20 A&P Assessment and plan (1) Femur fracture, left: Status: Acute (2) Adult onset hypothyroidism: Status: Chronic (3) Urinary incontinence due to immobility: Status: Chronic (4) Essential (primary) hypertension: Status: Chronic (5) Chronic obstructive pulmonary disease, unspecified: Status: Chronic Qualifiers: COPD type: emphysema Emphysema type: unspecified Qualified Code(s): J43.9 - Emphysema, unspecified (6) Anemia, unspecified: Status: Chronic Additional A&P Information Mechanical fall with left distal femoral fracture s/p ORIF Post op management per ortho Pain control PT consult Celebrex 200 mg PO BID Flexeril 10 mg TID PRN Oxycodone 5-10 mg PO Q4hr PRN Hx of CVA with residual L. Spastic hemiplegia Fall precautions PT on consult Chronic obstructive pulmonary disease Duoneb PRN Supplemental o2 as needed W/o evidence of exacerbation Anemia Due to postop acute blood loss Monitor h/h -trended down to 8.5 Transfused if less than 7 Hypothyroidism Synthroid 50 mcg PO daily Obstructive sleep apnea Continue nocturnal O2 as needed GERD Protonix 40 mg PO daily DVT ppx Lovenox 40 mg SQ daily Attestations Medical Necessity Statement*: require further hospitalization for management of postoperative care Time Spent in Patient Care: Greater than 35 minutes (>than 50% of time spent in counselling and/or direct pt care on unit) . Coding Level of Care Code Acute Unit Support Representative for [facility] Fwd Diagnoses Femur fracture, left S72.92XA Adult onset hypothyroidism E03.8 Urinary incontinence due to immobility R39.81 Essential (primary) hypertension I10 Chronic obstructive pulmonary disease, unspecified J43.9 COPD type: emphysema Emphysema type: unspecified Anemia, unspecified D64.9
[2021-05-18] MEDS: enoxaparin 40 mg/0.4 mL Syringe SUBCUT (23:09)
[2021-05-19] VITALS (9 sets, daily range): BP systolic 106–124; BP diastolic 70–83; PULSE 81–103; RESP 16–22; TEMP 36.7–37.5; O2SAT 92–99
[2021-05-19] MEDS: levothyroxine 50 mcg Tablet PO (05:55)
[2021-05-19 07:05] LABS: Basophils % 0.4 %; Eosinophils # 0.1 10^3/uL (0.0-0.8); Eosinophils % 1.3 %; Hematocrit 24.4 % (37.0-47.0); Hemoglobin 7.7 g/dL (11.5-15.3); Lymphocytes # 1.6 10^3/uL (0.8-4.8); Lymphocytes % 16.9 %; Mean Corpuscular HGB Conc 31.6 g/dL (30.0-36.0); Mean Corpuscular Volume 104.7 fL (81-99); Mean Platelet Volume 9.4 fL (7.4-10.4); Monocytes # 1.2 10^3/uL (0.2-0.9); Monocytes % 12.1 %; Neutrophils % 68.5 %; Nucleated Red Blood Cells % 0 %; Platelet Count 180 10^3/cmm (130-400); Red Blood Count 2.33 10^6/uL (4.1-5.3); Red Cell Distribution Width 12.3 % (12.1-15.1); White Blood Count 9.5 10^3/uL (4.0-10.0)
[2021-05-19 07:26] LABS: Anion Gap 13.9 (5-19); Blood Urea Nitrogen 23 mg/dL (8-23); Calcium 8.1 mg/dL (8.5-10.5); Carbon Dioxide 26 mmol/L (22-29); Chloride 96 mmol/L (98-107); Glomerular Filtration Rate 54.8 mL/min (90-130); Glucose 106 mg/dL (65-115); Osmolality Calculated 276 mOsm/kg (285-295); Potassium 4.9 mmol/L (3.5-5.1); Sodium 131 mmol/L (136-145)
[2021-05-19 07:30] LABS: Creatinine Clr Calc Pharmacy 49.9717
[2021-05-19] MEDS: albuterol 8 gm MDI 2 PUFF INHALATION ×2 (07:45→17:59)
[2021-05-19] MEDS: guaiFENesin 600 mg Tablet PO ×2 (09:56→21:17)
[2021-05-19] MEDS: cholecalciferol (vitamin D3) 5,000 unit Tablet 5000 UNIT PO (09:56)
[2021-05-19] MEDS: CELEcoxib 100 mg Capsule 200 MG PO ×2 (09:56→21:17)
[2021-05-19] MEDS: losartan 50 mg Tablet 25 MG PO (09:57)
[2021-05-19] MEDS: FUROsemide 20 mg Tablet PO (09:57)
[2021-05-19] MEDS: pantoprazole DR 40 mg Tablet PO (09:57)
[2021-05-19] MEDS: potassium chloride ER 10 mEq Tablet PO ×2 (09:57→21:17)
[2021-05-19] MEDS: carBAMazepine 200 mg Tablet PO ×2 (09:57→21:17)
[2021-05-19] MEDS: oxyCODONE 5 mg IR Tab/Cap PO (09:59)
[2021-05-19] MEDS: cetirizine 10 mg Tablet PO (10:00)
--- NOTE | 2021-05-19 11:32 | PC.SOCIAL ---
IMM Update Pg. 2 of IMM updated and reviewed with patient who verbalized understanding. Copy provided.
[2021-05-19 13:08] LABS: Glucose Point of Care 154 mg/dL (70-110)
--- NOTE | 2021-05-19 15:04 | P.PN_ITS ---
Subjective Subjective: Interval history: No new clinical events overnight. , pain under control. Medications: Reviewed: Yes Vitals/I&O/Wt Last Vital Signs Temp 99.0 F 05/19/21 09:00 Pulse 103 H 05/19/21 09:00 Resp 18 05/19/21 09:59 BP 118/77 05/19/21 09:00 Pulse Ox 95 05/19/21 09:59 05/19/21 05/19/21 05/19/21 06:59 14:59 22:59 Intake Total 480 / 950 Output Total 500 / 1000 Balance -20 / 50 Physical Exam Narrative: EXAM NARRATIVE: General-alert awake and oriented x3 HEENT-grossly unremarkable CVS-Normal sinus rhythm Chest- nonlabored respiration Abdomen- soft nontender nondistended Extremities- post-op left ORIF Urinary Catheter Management^: Granado: Cath Placed During This Visit: yes Reason for Continuing Indwelling Catheter: Perioperative Use in Selected [place] es Urinary Catheter Date of Insertion: 05/17/21 Urinary Catheter Time of Insertion: 08:30 Data : 05/19/21 06:46 05/19/21 06:46 A&P Assessment and plan (1) Femur fracture, left: Status: Acute (2) Adult onset hypothyroidism: Status: Chronic (3) Urinary incontinence due to immobility: Status: Chronic (4) Essential (primary) hypertension: Status: Chronic (5) Chronic obstructive pulmonary disease, unspecified: Status: Chronic Qualifiers: COPD type: emphysema Emphysema type: unspecified Qualified Code(s): J43.9 - Emphysema, unspecified (6) Anemia, unspecified: Status: Chronic Additional A&P Information Mechanical fall with left distal femoral fracture s/p ORIF Post op management per ortho Pain control PT consult Celebrex 200 mg PO BID Flexeril 10 mg TID PRN Oxycodone 5-10 mg PO Q4hr PRN Stable Hx of CVA with residual L. Spastic hemiplegia Fall precautions PT on consult Chronic obstructive pulmonary disease Duoneb PRN Supplemental o2 as needed W/o evidence of exacerbation Anemia Due to postop acute blood loss Monitor h/h -trended down to 7.7 Transfused if less than 7 Hypothyroidism Synthroid 50 mcg PO daily Obstructive sleep apnea Continue nocturnal O2 as needed GERD Protonix 40 mg PO daily DVT ppx Lovenox 40 mg SQ daily Disposition Working on placement to [facility], [place] currently Attestations Medical Necessity Statement*: Require further hospitalizationFor management of postop care, anemia and pain control Time Spent in Patient Care: Greater than 35 minutes (>than 50% of time spent in counselling and/or direct pt care on unit) . Coding Level of Care Code Acute Patient Observer for [facility] Fwd Diagnoses Femur fracture, left S72.92XA Adult onset hypothyroidism E03.8 Urinary incontinence due to immobility R39.81 Essential (primary) hypertension I10 Chronic obstructive pulmonary disease, unspecified J43.9 COPD type: emphysema Emphysema type: unspecified Anemia, unspecified D64.9
--- NOTE | 2021-05-19 16:57 | P.PN_ITS ---
Subjective Subjective: Interval history: Pain controlled with meds. Wants to go home. Vitals/I&O/Wt Last Vital Signs Temp 99.0 F 05/19/21 09:00 Pulse 103 H 05/19/21 09:00 Resp 18 05/19/21 09:59 BP 118/77 05/19/21 09:00 Pulse Ox 95 05/19/21 09:59 05/19/21 05/19/21 05/19/21 06:59 14:59 22:59 Intake Total 480 / 950 360 / 360 Output Total 500 / 1000 Balance -20 / -50 360 / 360 Physical Exam Narrative: EXAM NARRATIVE: Dressing clean and dry. Knee immobilizer in place. Left foot well-perfused. Urinary Catheter Management^: Granado: Cath Placed During This Visit: yes Reason for Continuing Indwelling Catheter: Perioperative Use in Selected Surgeries Urinary Catheter Date of Insertion: 05/17/21 Urinary Catheter Time of Insertion: 08:30 Data : 05/19/21 06:46 05/19/21 06:46 A&P Assessment and plan (1) Postoperative state: Patient is stable from orthopedic standpoint okay for discharge. Will need to be touchdown weightbearing on the left lower extremity for at least 6 weeks until radiographic evidence of healing. Status: Acute Attestations Medical Necessity Statement*: Okay for discharge per Ortho Coding Level of Care Code Acute Production Superintendent for [facility] Diagnoses Postoperative state Z98.890
[2021-05-19] MEDS: enoxaparin 40 mg/0.4 mL Syringe SUBCUT (23:07)
[2021-05-20] VITALS (20 sets, daily range): BP systolic 106–188; BP diastolic 64–126; PULSE 61–102; RESP 16–23; TEMP 36.5–37.2; O2SAT 93–100
[2021-05-20] MEDS: levothyroxine 50 mcg Tablet PO (05:58)
[2021-05-20 05:59] LABS: Basophils # 0.1 10^3/uL (0.0-0.1); Basophils % 0.6 %; Eosinophils # 0.2 10^3/uL (0.0-0.8); Eosinophils % 2.2 %; Hematocrit 23.1 % (37.0-47.0); Hemoglobin 7.4 g/dL (11.5-15.3); Lymphocytes # 2.1 10^3/uL (0.8-4.8); Lymphocytes % 25.3 %; Mean Corpuscular Hemoglobin 33.3 pg (28.0-34.0); Mean Corpuscular Volume 104.1 fL (81-99); Mean Platelet Volume 9.4 fL (7.4-10.4); Monocytes # 0.9 10^3/uL (0.2-0.9); Neutrophils # 4.87 10^3/uL (1.8-7.7); Nucleated Red Blood Cells % 0 %; Platelet Count 225 10^3/cmm (130-400); Red Blood Count 2.22 10^6/uL (4.1-5.3); Red Cell Distribution Width 12.1 % (12.1-15.1); White Blood Count 8.1 10^3/uL (4.0-10.0)
[2021-05-20 06:23] LABS: Anion Gap 12.8 (5-19); Blood Urea Nitrogen 25 mg/dL (8-23); Carbon Dioxide 26 mmol/L (22-29); Chloride 93 mmol/L (98-107); Glomerular Filtration Rate 54.8 mL/min (90-130); Glucose 105 mg/dL (65-115); Osmolality Calculated 269 mOsm/kg (285-295); Potassium 4.8 mmol/L (3.5-5.1); Sodium 127 mmol/L (136-145)
[2021-05-20 06:25] LABS: Creatinine Clr Calc Pharmacy 49.9717
[2021-05-20] MEDS: CELEcoxib 100 mg Capsule 200 MG PO ×2 (09:06→20:28)
[2021-05-20] MEDS: potassium chloride ER 10 mEq Tablet PO ×2 (09:06→20:23)
[2021-05-20] MEDS: cholecalciferol (vitamin D3) 5,000 unit Tablet 5000 UNIT PO (09:06)
[2021-05-20] MEDS: cetirizine 10 mg Tablet PO (09:07)
[2021-05-20] MEDS: carBAMazepine 200 mg Tablet PO ×2 (09:07→20:23)
[2021-05-20] MEDS: pantoprazole DR 40 mg Tablet PO (09:07)
[2021-05-20] MEDS: guaiFENesin 600 mg Tablet PO ×2 (09:08→20:23)
[2021-05-20] MEDS: FUROsemide 20 mg Tablet PO (09:08)
[2021-05-20] MEDS: oxyCODONE 5 mg IR Tab/Cap PO ×2 (09:08→20:24)
[2021-05-20 10:32] LABS: Glucose Point of Care 152 mg/dL (70-110)
[2021-05-20 13:02] LABS: Iron 24 ug/dL (37-145); Thyroid Stimulating Hormone 4.22 uIU/mL (0.27-4.20); Total Iron Binding Capacity 218 mcg/dl; Unsaturated Iron Binding 194 ug/dL (112-347)
[2021-05-20] MEDS: magnesium hydroxide 30 mL UDC PO (14:17)
[2021-05-20] MEDS: sodium chloride 0.9% 1,000 ML 50 ML IV (14:17)
[2021-05-20] MEDS: sodium chloride 0.9% (100 ml) 100 ML 50 ML (15:11)
--- NOTE | 2021-05-20 17:06 | P.PN_ITS ---
Subjective Subjective: Interval history: Hospital course, labs appreciated. No events overnight. Patient working poorly with physical therapy because of weakness. Denies any nausea vomiting or headache. Medications: Reviewed: Yes Vitals/I&O/Wt Last Vital Signs Temp 98.9 F 05/20/21 16:36 Pulse 87 05/20/21 16:36 Resp 20 H 05/20/21 16:36 BP 157/87 05/20/21 16:36 Pulse Ox 100 05/20/21 16:36 05/20/21 05/20/21 05/20/21 06:59 14:59 22:59 Intake Total 300 / 300 0 / 300 Output Total 400 / 400 350 / 350 150 / 500 Balance -400 / 200 -50 / -50 -150 / -200 Physical Exam Narrative: EXAM NARRATIVE: General-alert awake and oriented x3 HEENT-grossly unremarkable CVS-Normal sinus rhythm Chest- nonlabored respiration Abdomen- soft nontender nondistended Extremities- post-op left ORIF Urinary Catheter Management^: Granado: Cath Placed During This Visit: yes Reason for Continuing Indwelling Catheter: Other Urinary Catheter Date of Insertion: 05/17/21 Urinary Catheter Time of Insertion: 08:30 Data : 05/20/21 05:31 05/20/21 05:31 A&P Assessment and plan (1) Femur fracture, left: Status: Acute (2) Adult onset hypothyroidism: Status: Chronic (3) Urinary incontinence due to immobility: Status: Chronic (4) Essential (primary) hypertension: Status: Chronic (5) Chronic obstructive pulmonary disease, unspecified: Status: Chronic Qualifiers: COPD type: emphysema Emphysema type: unspecified Qualified Code(s): J43.9 - Emphysema, unspecified (6) Anemia, unspecified: Status: Chronic Additional A&P Information Mechanical fall with left distal femoral fracture s/p ORIF Post op management per ortho Pain control PT consult Celebrex 200 mg PO BID Flexeril 10 mg TID PRN Oxycodone 5mg PO Q4hr PRN Stable Hx of CVA with residual L. Spastic hemiplegia Fall precautions PT on consult Chronic obstructive pulmonary disease Duoneb PRN Supplemental o2 as needed W/o evidence of exacerbation Anemia: Due to postoperative acute blood loss. Transfuse 1 unit PRBC. Check iron panel. Start patient on oral iron supplementation. Check vitamin B12, folate levels. Hypothyroidism Synthroid 50 mcg PO daily Obstructive sleep apnea Continue nocturnal O2 as needed GERD Protonix 40 mg PO daily DVT ppx Lovenox 40 mg SQ daily Disposition Working on placement to [facility], resident of [place] currently. Plan for today: Transfuse 1 not PRBC. Start IV fluids. Continue physical therapy and pain management. Attestations Medical Necessity Statement*: Requires further hospitalization from postoperative management of ORIF while safe discharge planning is sought Time Spent in Patient Care: Greater than 35 minutes (>than 50% of time spent in counselling and/or direct pt care on unit) . Coding Level of Care Code Acute Triple Valve Tester for [facility] Fwd Diagnoses Femur fracture, left S72.92XA Adult onset hypothyroidism E03.8 Urinary incontinence due to immobility R39.81 Essential (primary) hypertension I10 Chronic obstructive pulmonary disease, unspecified J43.9 COPD type: emphysema Emphysema type: unspecified Anemia, unspecified D64.9
[2021-05-20] MEDS: albuterol 8 gm MDI 2 PUFF INHALATION (18:06)
[2021-05-20 18:39] LABS: Folate Level 13.1 ng/mL (4.8-37.3)
[2021-05-20 18:40] LABS: Vitamin B12 273 pg/mL (232-1245)
--- NOTE | 2021-05-20 18:55 | PC.NURSE ---
Blood Transfusion Pt's BP 188/126. Transfusion stopped. Dr. Scott notified. Orders given for solumedrol and benadryl. When this nurse went to give medications, pt's IV was longterm pulled out. This nurse attempted to clean the IV site and advance catheter without success. Two attempts to start a new IV were not successful. Dr. Scott notified. BP currently 156/88.
[2021-05-20] MEDS: enoxaparin 40 mg/0.4 mL Syringe SUBCUT (22:23)
[2021-05-21] VITALS (19 sets, daily range): BP systolic 103–141; BP diastolic 69–93; PULSE 77–102; RESP 18–30; TEMP 36.5–37; O2SAT 74–99
[2021-05-21] MEDS: oxyCODONE 5 mg IR Tab/Cap PO ×3 (02:12→18:31)
--- NOTE | 2021-05-21 05:03 | PC.NURSE ---
shift note patient rested this shift, requested pain med x 2, c/o left back pain near left shoulder, attempted to re-start IV line x2 without success, respiratory administered breathing treatment stated patient lung is full, auscultation findings clear to left upper lobe, wheezes to right lung and dim to left lower lobe, 02 sat 95 after neb treatment, patient slept better after neb treatment
[2021-05-21] MEDS: levothyroxine 50 mcg Tablet PO (05:27)
[2021-05-21 06:28] LABS: Basophils % 0.4 %; Eosinophils # 0.1 10^3/uL (0.0-0.8); Eosinophils % 0.8 %; Hematocrit 24.5 % (37.0-47.0); Hemoglobin 8.1 g/dL (11.5-15.3); Lymphocytes # 1.3 10^3/uL (0.8-4.8); Lymphocytes % 17.2 %; Mean Corpuscular HGB Conc 33.1 g/dL (30.0-36.0); Mean Corpuscular Hemoglobin 32.8 pg (28.0-34.0); Mean Corpuscular Volume 99.2 fL (81-99); Mean Platelet Volume 9.9 fL (7.4-10.4); Monocytes # 0.7 10^3/uL (0.2-0.9); Monocytes % 10.2 %; Neutrophils # 5.12 10^3/uL (1.8-7.7); Neutrophils % 70.3 %; Nucleated Red Blood Cells % 0 %; Platelet Count 211 10^3/cmm (130-400); Red Blood Count 2.47 10^6/uL (4.1-5.3); Red Cell Distribution Width 13.7 % (12.1-15.1); White Blood Count 7.3 10^3/uL (4.0-10.0)
[2021-05-21 06:34] LABS: Alanine Aminotransferase 10 U/L (0-33); Albumin Level 3.2 g/dL (3.5-5.2); Alkaline Phosphatase 74 IU/L (35-105); Anion Gap 13.2 (5-19); Aspartate Amino Transferase 17 U/L (0-32); Blood Urea Nitrogen 26 mg/dL (8-23); Calcium 7.9 mg/dL (8.5-10.5); Carbon Dioxide 26 mmol/L (22-29); Chloride 93 mmol/L (98-107); Creatinine Clr Calc Pharmacy 62.4647; Globulin 2.6 g/dL (1.3-4.6); Glomerular Filtration Rate 70.9 mL/min (90-130); Glucose 112 mg/dL (65-115); Osmolality Calculated 270 mOsm/kg (285-295); Potassium 5.2 mmol/L (3.5-5.1); Sodium 127 mmol/L (136-145); Total Bilirubin 0.5 mg/dL (0.15-1.2); Total Protein 5.8 g/dL (6.6-8.7)
[2021-05-21 06:49] LABS: Estmated Average Glucose 94; Hemoglobin A1C 4.9 % (4.0-6.0)
--- NOTE | 2021-05-21 08:03 | PM.PN ---
Subjective Subjective: Interval history: Patient complains of pain left chest wall Vitals/I&O/Wt Last Vital Signs Temp 98.6 F 05/21/21 03:58 Pulse 88 05/21/21 06:00 Resp 18 05/21/21 03:58 BP 126/84 05/21/21 03:58 Pulse Ox 98 05/21/21 03:58 05/20/21 05/21/21 05/21/21 22:59 06:59 14:59 Intake Total 1450 / 1750 100 / 1850 Output Total 150 / 500 450 / 950 Balance 1300 / 1250 -350 / 900 Physical Exam Narrative: EXAM NARRATIVE: Dressings changed. Left knee and thigh incisions clean Urinary Catheter Management^: Granado: Cath Placed During This Visit: yes Reason for Continuing Indwelling Catheter: Other Urinary Catheter Date of Insertion: 05/17/21 Urinary Catheter Time of Insertion: 08:30 Data : 05/21/21 05:51 05/21/21 05:51 A&P Assessment and plan (1) Femur fracture, left: Status: Acute (2) Postoperative state: Patient will continue knee immobilizer will need jail placement. Status: Acute Attestations Medical Necessity Statement*: With left hemiplegia and left lower extremity fracture, rehab will be difficult. Will need jail. Coding Level of Care Code Acute Music Instructor for [facility] Diagnoses Femur fracture, left S72.92XA Postoperative state Z98.890
[2021-05-21] MEDS: losartan 50 mg Tablet 25 MG PO (08:37)
[2021-05-21] MEDS: cholecalciferol (vitamin D3) 5,000 unit Tablet 5000 UNIT PO (08:37)
[2021-05-21] MEDS: cetirizine 10 mg Tablet PO (08:38)
[2021-05-21] MEDS: carBAMazepine 200 mg Tablet PO ×2 (08:38→21:06)
[2021-05-21] MEDS: guaiFENesin 600 mg Tablet PO ×2 (08:38→21:07)
[2021-05-21] MEDS: pantoprazole DR 40 mg Tablet PO (08:38)
[2021-05-21] MEDS: sennosides-docusate Tablet 1 TAB PO (08:38)
[2021-05-21] MEDS: CELEcoxib 100 mg Capsule 200 MG PO ×2 (09:23→21:06)
[2021-05-21] MEDS: FUROsemide 10 mg/mL SDV 2mL 20 MG IVP (11:49)
[2021-05-21 12:05] LABS: Glucose Point of Care 149 mg/dL (70-110)
[2021-05-21] MEDS: ipratropium-albuterol 3 mL Neb INHALATION ×2 (12:10→20:37)
--- NOTE | 2021-05-21 12:14 | PC.SOCIAL ---
IMM Updated Updated pt on Pg 2 IMM. No questions voiced. Provided pt a copy. Signed, dated, & timed copy in chart.
--- NOTE | 2021-05-21 12:52 | XRR_ITS ---
PROCEDURE INFORMATION: Exam: XR Chest Exam date and time: 05/21/2021 12:52 PM Age: 71 years old Clinical indication: Shortness of breath; Patient HX: History--hx of hemiparalysis. Left arm weakness. Knee surgery. ; Additional info: SOB TECHNIQUE: Imaging protocol: XR of the chest. Views: 1 view. COMPARISON: CR Chest 2 views* [id number] 12/20/2017 6:21 PM FINDINGS: Tubes, catheters and devices: Tiny metallic density, possibly a surgical clip, projects over the mid chest. On a prior CT THORACIC SPINE 02/02/2015 this was shown to be in the central spinal canal. Lungs: No pneumonia or pulmonary edema. Pleural spaces: No pleural effusion or pneumothorax. Heart/Mediastinum: Borderline enlargement the cardiac silhouette when allowing for patient rotation. Vasculature: The thoracic aorta is tortuous and atherosclerotic. Bones/joints: Old, healed proximal left humeral fracture. Curvature of the lower thoracic spine convex to the right associated with multilevel disc degeneration. XR/XR chest 1V portable [id number] IMPRESSION: No acute abnormality.
--- NOTE | 2021-05-21 12:55 | PM.PN ---
Subjective Subjective: Interval history: Patient had a rough night. Overnight when patient was getting blood transfusion she developed difficulty in breathing for which blood pressure was stopped and she received a dose of methylprednisone and Benadryl. After that patient started feeling better but today morning she continues to have mild chest tightness and also states she was having left-sided chest pain early in the morning. On examination patient working with occupational therapy. Patient seems weak. Denies any nausea or vomiting, headache. Complaining of pain all over the body. Medications: Reviewed: Yes Vitals/I&O/Wt Last Vital Signs Temp 98.1 F 05/21/21 11:02 Pulse 84 05/21/21 12:10 Resp 20 H 05/21/21 12:10 BP 133/84 05/21/21 11:02 Pulse Ox 92 05/21/21 12:10 05/20/21 05/21/21 05/21/21 22:59 06:59 14:59 Intake Total 1450 / 1750 100 / 1850 240 / 240 Output Total 150 / 500 450 / 950 Balance 1300 / 1250 -350 / 900 240 / 240 Physical Exam Narrative: EXAM NARRATIVE: General-alert awake and oriented x3 HEENT-grossly unremarkable CVS-Normal sinus rhythm Chest- nonlabored respiration Abdomen- soft nontender nondistended Extremities- post-op left ORIF Urinary Catheter Management^: Granado: Cath Placed During This Visit: yes Reason for Continuing Indwelling Catheter: Other Urinary Catheter Date of Insertion: 05/17/21 Urinary Catheter Time of Insertion: 08:30 Data : 05/21/21 05:51 05/21/21 05:51 A&P Assessment and plan (1) Femur fracture, left: Status: Acute (2) Adult onset hypothyroidism: Status: Chronic (3) Urinary incontinence due to immobility: Status: Chronic (4) Essential (primary) hypertension: Status: Chronic (5) Chronic obstructive pulmonary disease, unspecified: Status: Chronic Qualifiers: COPD type: emphysema Emphysema type: unspecified Qualified Code(s): J43.9 - Emphysema, unspecified (6) Anemia, unspecified: Status: Chronic Additional A&P Information Mechanical fall with left distal femoral fracture s/p ORIF Post op management per ortho Pain control PT consult Celebrex 200 mg PO BID Flexeril 10 mg TID PRN Oxycodone 5mg PO Q4hr PRN Stable Hx of CVA with residual L. Spastic hemiplegia Fall precautions PT on consult Chronic obstructive pulmonary disease: Mild exacerbation. Cannot rule out mild CHF as well. Could be related to possible allergic reaction during blood transfusion. Check proBNP, chest x-ray. Check EKG, troponin DuoNebs every 6 hours for now. Supplemental o2 as needed keeping saturation over 90%. W/o evidence of exacerbation Anemia: Due to postoperative acute blood loss. Post 1 unit blood transfusion which needed to stopped prematurely due to allergic reaction. Hemoglobin 8.1 today. Start on oral iron supplementation. Vitamin B12 folate levels within normal limits. Hyponatremia: Most likely dilutional. Lasix 20 mg IV stat. For now we will continue to monitor daily. If needed can start patient on oral salt supplementation. Hypothyroidism Synthroid 50 mcg PO daily Obstructive sleep apnea Continue nocturnal O2 as needed GERD Protonix 40 mg PO daily DVT ppx Lovenox 40 mg SQ daily Disposition Resident of [facility] currently. Has been accepted at [facility]. Plan to discharge tomorrow once breathing better. Attestations Medical Necessity Statement*: Further hospitalization for postop management ORIF, mild COPD exacerbation needing supplemental oxygen. Time Spent in Patient Care: Greater than 35 minutes (>than 50% of time spent in counselling and/or direct pt care on unit). Coding Level of Care Code Acute Wallcovering Hanger for [facility] Fwd Diagnoses Femur fracture, left S72.92XA Adult onset hypothyroidism E03.8 Urinary incontinence due to immobility R39.81 Essential (primary) hypertension I10 Chronic obstructive pulmonary disease, unspecified J43.9 COPD type: emphysema Emphysema type: unspecified Anemia, unspecified D64.9
--- NOTE | 2021-05-21 13:00 | ECG_ITS ---
[facility] ED Test Date: 2021-05-21 Pat Name: Nicole Oseguera Department: Room: 256 Gender: Female Sports Administrator: : 1950 Requested By: Da Scott Order Number: [id number] Ludin MD: Millie Concepcion M.D. Measurements Intervals [place]lin Rate: 95 P: 44 VA: 146 QRS: -5 QRSD: 81 T: 45 QT: 306 QTc: 385 Interpretive Statements SINUS RHYTHM MINIMAL VOLTAGE CRITERIA FOR LVH, CONSIDER NORMAL VARIANT [MEETS CRITERIA IN ONE OF: R(aVL), S(V1), R(V5), R(V5/V6)+S(V1)] Compared to ECG 05/16/2021 14:45:09 No significant changes Electronically Signed On 05-22-2021 22:06:48 CDT by Millie Concepcion M.D. [id number]
[2021-05-21 13:43] LABS: Troponin T (5th) Once 29 ng/L (0-10)
[2021-05-21 13:51] LABS: NT Pro B Type Natriuretic Pept 376 pg/mL (0-125)
--- NOTE | 2021-05-21 15:40 | PC.NUTR ---
Nutrition assessment completed for LOS, noted po intakes averaging 38% at meals. Recommend addition of Ensure with meals to provide additional kcal/protein given poor po intake. Recommend to encourage intakes of meals/supplements and provide meal preferences as available. See RD assessment for further details.
[2021-05-21] MEDS: albuterol 8 gm MDI 2 PUFF INHALATION (15:55)
[2021-05-21] MEDS: ferrous gluconate 324 mg Tablet PO (17:08)
[2021-05-21] MEDS: enoxaparin 40 mg/0.4 mL Syringe SUBCUT (22:15)
[2021-05-22] VITALS (14 sets, daily range): BP systolic 114–126; BP diastolic 62–83; PULSE 83–97; RESP 18–20; TEMP 36.5–36.8; O2SAT 92–97
[2021-05-22] MEDS: oxyCODONE 5 mg IR Tab/Cap PO ×3 (02:22→15:19)
[2021-05-22] MEDS: ipratropium-albuterol 3 mL Neb INHALATION ×3 (03:02→14:02)
[2021-05-22 03:48] LABS: Alanine Aminotransferase 13 U/L (0-33); Albumin Level 3.3 g/dL (3.5-5.2); Alkaline Phosphatase 93 IU/L (35-105); Anion Gap 16.7 (5-19); Aspartate Amino Transferase 20 U/L (0-32); Blood Urea Nitrogen 24 mg/dL (8-23); Calcium 8.4 mg/dL (8.5-10.5); Carbon Dioxide 23 mmol/L (22-29); Chloride 93 mmol/L (98-107); Creatinine Clr Calc Pharmacy 62.4647; Globulin 2.9 g/dL (1.3-4.6); Glomerular Filtration Rate 70.9 mL/min (90-130); Glucose 126 mg/dL (65-115); Osmolality Calculated 272 mOsm/kg (285-295); Potassium 4.7 mmol/L (3.5-5.1); Sodium 128 mmol/L (136-145); Total Bilirubin 0.5 mg/dL (0.15-1.2); Total Protein 6.2 g/dL (6.6-8.7)
[2021-05-22] MEDS: levothyroxine 50 mcg Tablet PO (05:27)
[2021-05-22] MEDS: ferrous gluconate 324 mg Tablet PO (08:48)
[2021-05-22] MEDS: losartan 50 mg Tablet 25 MG PO (08:48)
[2021-05-22] MEDS: guaiFENesin 600 mg Tablet PO (08:48)
[2021-05-22] MEDS: cetirizine 10 mg Tablet PO (08:48)
[2021-05-22] MEDS: carBAMazepine 200 mg Tablet PO (08:48)
[2021-05-22] MEDS: cholecalciferol (vitamin D3) 5,000 unit Tablet 5000 UNIT PO (08:48)
[2021-05-22] MEDS: pantoprazole DR 40 mg Tablet PO (08:49)
[2021-05-22] MEDS: sennosides-docusate Tablet 1 TAB PO (08:49)
[2021-05-22] MEDS: CELEcoxib 100 mg Capsule 200 MG PO (08:53)
[2021-05-22 09:54] LABS: Glucose Point of Care 168 mg/dL (70-110)
[2021-05-22 10:53] LABS: Free T4 Free Thyroxine 1.23 ng/dL (0.82-1.77); T3 Free 1.8 PG/ML (2.0-4.4)
--- NOTE | 2021-05-22 11:56 | P.DS_ITS ---
Discharge Providers Date of Admission: 05/16/21 16:38 Date of Discharge: May 22, 2021 Attending Provider at Admission: Aury Hooks Attending Provider at Discharge: Da Scott MD Consults: Orthopedics: Dr. Guerin Primary Care Provider: ALHAJI Melgoza Diagnoses at Discharge Discharge Diagnosis (1) Femur fracture, left: Status: Acute (2) Adult onset hypothyroidism: Status: Chronic (3) Urinary incontinence due to immobility: Status: Chronic (4) Essential (primary) hypertension: Status: Chronic (5) Chronic obstructive pulmonary disease, unspecified: Status: Chronic Qualifiers: COPD type: emphysema Emphysema type: unspecified Qualified Code(s): J43.9 - Emphysema, unspecified (6) Anemia, unspecified: Status: Chronic Reason for Visit 2 Reason for Visit: FALL/ SHOULDER AND KNEE PAIN Hospital Course Hospital Course 71-year-old, Oumar Rivera with past medical history significant for hypothyroidism, chronic obstructive pulmonary disease, gastroesophageal reflux disease, sleep apnea on nocturnal O2, urinary incontinence, CVA with residual left sided spastic hemiplegia and osteoporosis who presented to the hospital with a fall. Apparently patient had been complaining of left knee pain. She was noted to have a supracondylar left femoral fracture.Patient was seen by orthopedic surgery and taken to OR todayFor open reduction internal fixation of left supracondylar femoral fracture. Postoperatively patient was complaining of pain otherwise stable. She had denies any symptoms prior to the fall. No head trauma or loss of conscious.Laboratory workup initially on 05/16/2021 had showed a WBC of 11.6, hemoglobin 12.5, hematocrit 38.9 and platelet count 228. Sodium 137, potassium 5.0, chloride 97, bicarb 31, BUN 22 and creatinine of 0.9. COVID-19 was negative. Patient went to the hospital for further management of left femur fracture. Orthopedics was consulted and patient underwent ORIF on May 17. Patient tolerated the procedure well. Her hospital stay was complicated by developing postprocedure anemia for which she required 1 unit of blood transfusion. During blood transfusion patient had episode of shortness of breath which was treated with IV Solu-Medrol and slowing down of transfusion to which she responded well. Patient has been working appropriately with physical therapy. For requirement of further physical therapy and pain control SNF was recommended for the patient and she agreed. Patient has been discharged hemodynamically stable condition advised to follow-up with a primary care provider within the next 1 week and with orthopedics on recommended follow-up. Physical Exam Narrative: EXAM NARRATIVE: General-alert awake and oriented x3 HEENT-grossly unremarkable CVS-Normal sinus rhythm Chest- nonlabored respiration Abdomen- soft nontender nondistended Extremities- post-op left ORIF Urinary Catheter Management^: Granado: Cath Placed During This Visit: yes, but has since been removed by the nurse Reason for Continuing Indwelling Catheter: Decision to DC Catheter Urinary Catheter Date of Insertion: 05/17/21 Urinary Catheter Time of Insertion: 08:30 Date Urinary Catheter Removed: 05/21/21 Time Urinary Catheter Discontinued: 13:25 Discharge Data Data Completed and Pending: Completed Studies During Hospitalization Category Date Time Status XR chest 1V racquel ble [id number] Routine Exams 05/21/21 12:52 Completed XR femur LT min 2 V* [id number] Routine Exams 05/17/21 10:27 Completed XR knee LT 3V* [id number] Stat Exams 05/16/21 14:04 Completed Labs from last 24 hours 05/22/21 05/22/21 05/22/21 09:49 08:43 02:47 Sodium 128 L Potassium 4.7 Chloride 93 L Carbon Dioxide 23 Anion Gap 16.7 BUN 24 H Creatinine 0.8 GFR Calculation 70.9 L Glucose 126 H POC Glucose 168 H Calculated Osmolal ity 272 L Calcium 8.4 L Total Bilirubin 0.5 AST 20 ALT 13 Alkaline Phosphata se 93 Troponin T Gen 5 n g/L NT-Pro-B Natriuret Pep Total Protein 6.2 L Albumin 3.3 L Globulin 2.9 Free T4 1.23 Free T3 1.8 L 05/21/21 05/21/21 05/21/21 10:59 05:51 05:51 Sodium Potassium Chloride Carbon Dioxide Anion Gap BUN Creatinine GFR Calculation Glucose POC Glucose 149 H Calculated Osmolal ity Calcium Total Bilirubin AST ALT Alkaline Phosphata se Troponin T Gen 5 n g/L 29 H NT-Pro-B Natriuret Pep 376 H Total Protein Albumin Globulin Free T4 Free T3 Vitals: Last Vital Signs Temp 98.2 F 05/22/21 08:00 Pulse 94 05/22/21 08:54 Resp 18 05/22/21 08:54 BP 122/83 05/22/21 08:48 Pulse Ox 95 07/14/21 08:54 Discharge Plan Discharge Patient Disposition: Home Condition: Stable Prescriptions: New enoxaparin 40 mg/0.4 mL Syringe 40 mg SUBCUT Q24H 10 Days Qty: 4 RF: 0 ferrous gluconate 324 mg (37.5 mg iron) Tablet 324 mg PO BIDWM Qty: 60 RF: 0 Continued albuterol sulfate 2.5 mg /3 mL (0.083 %) solution for nebulization 2.5 mg INHALATION BID@799,1999 RF: 0 Caltrate 600-D Plus Minerals 600 mg calcium- 800 unit-50 mg tablet 1 tab PO BID@799,1999 RF: 0 carbamazepine 200 mg tablet 200 mg PO BID@799,1999 RF: 0 guaifenesin [Mucinex] 600 mg tablet extended release 12hr 600 mg PO BID@799,1999 RF: 0 pantoprazole 40 mg tablet,delayed release (DR/EC) 40 mg PO DAILY@08 RF: 0 potassium chloride 10 mEq capsule, extended release 10 meq PO BID@ RF: 0 acetaminophen 325 mg capsule 650 mg PO Q6H PRN (Reason: Pain) RF: 0 (DME) Briefs, Adult-Extra Large Misc See Rx Instructions .ROUTE .MEDSUPPLY Qty: 120 RF: 12 Trelegy Ellipta 100-62.5-25 mcg blister with device 1 inh INHALATION Q24H Qty: 28 RF: 5 furosemide 20 mg tablet 20 mg PO DAILY@0800 RF: 0 (DME) Left foot and leg brace See Rx Instructions .Route .MEDSUPPLY Qty: 1 RF: 0 cyclobenzaprine 10 mg tablet 10 mg PO TID PRN (Reason: muscle spasm) Qty: 90 RF: 2 guaifenesin [Tussin] 100 mg/5 mL liquid 200 mg PO Q4H PRN (Reason: congestion) Qty: 473 RF: 0 Tums 500 500 mg calcium (1,250 mg) Tablet,Chewable 500 mg PO QID PRN (Reason: UNKNOWN) RF: 0 ProAir HFA 90 mcg/actuation HFA aerosol inhaler 2 puff INHALATION Q6H PRN (Reason: SHORTNESS OF BREATH/WHEEZING) RF: 0 Super Thera Galina M Tablet 1 tab PO DAILY RF: 0 Zyrtec 10 mg tablet 10 mg PO DAILY@0800 RF: 0 sodium chloride 1 gram tablet 1,000 mg PO BID@799,1999 RF: 0 valsartan 80 mg tablet 80 mg PO DAILY@0800 RF: 0 Celebrex 100 mg capsule 100 mg PO BID@799,1999 RF: 0 cholecalciferol (vitamin D3) 125 mcg (5,000 unit) capsule 125 mcg PO DAILY@0800 RF: 0 Milk of Magnesia 30 ml PO Q4H PRN (Reason: UNKNOWN) RF: 0 Changed levothyroxine 50 mcg tablet 75 mcg PO DAILY@0600 Qty: 0 RF: 0 Discharge Orders: Discharge Order (Routine); Ordered 05/22/21 Ordered By: Da Scott Referrals: [facility] [Outside] Cain Martinez, [employer]IN[employer]ING [employer]EL WORKER-C [Primary Care Provider] - 4-7 days Farhad Guerin MD [Physician] - 1 month Discharge Diet: Cardiac Discharge Activity: Limit activity as instructed Patient Instructions: Opioid Safety Activity Restrictions/Additional Instructions: Touchdown weightbearing left lower extremity Leave knee immobilizer in place except to check and wound and for hygiene. May change dressing as needed for drainage or hygiene. follow up with PCP in 1 week. Repeat thyroid panel in 3 months. Discharge Attestations Time Spent in Discharge Care*: greater than 30 min Specific Discharge Activities: educating patient, discussing with pcp/other providers, discussing with trimming caser/social workers/dc planners, documenting/other paperwork and evaluating patient/reviewing data Status at Discharge: Cognitive status at discharge: cognitively intact , Behavioral status at discharge: cooperative , Functional status at discharge: uses cane/walker Overall status at discharge: patient is progressing back to baseline Quality Metrics Clinical Quality Measures During this hospital stay, did patient experience: None Coding Level of Care Code Acute Chg FW DC note Diagnoses Femur fracture, left S72.92XA Adult onset hypothyroidism E03.8 Urinary incontinence due to immobility R39.81 Essential (primary) hypertension I10 Chronic obstructive pulmonary disease, unspecified J43.9 COPD type: emphysema Emphysema type: unspecified Anemia, unspecified D64.9
== END 2021-05-22 16:50 | disposition skilled nursing facility (03) | DRG 481 ==
LOC: ER 16:11 → MEDSURG 18:08
PROVIDERS: Nurse Practitioner Family; Orthopaedic Surgery; Admitting Provider Hospitalist; Emergency Provider Family Medicine; PCP Nurse Practitioner; Visit Provider Student in an Organized Health Care Education/Training Program
PROC: 0QSC06Z Reposition Left Lower Femur with Intramedullary Internal Fixation Device, Open Approach (ICD-10-PCS; principal; 2021-05-17 07:00)
DX: M80.052A Age-related osteoporosis with current pathological fracture, left femur, initial encounter for fracture (principal); I69.954 Hemiplegia and hemiparesis following unspecified cerebrovascular disease affecting left non-dominant side; D62 Acute posthemorrhagic anemia; E03.9 Hypothyroidism, unspecified; J43.9 Emphysema, unspecified; M19.90 Unspecified osteoarthritis, unspecified site; M24.575 Contracture, left foot; I11.0 Hypertensive heart disease with heart failure; I50.9 Heart failure, unspecified; K21.9 Gastro-esophageal reflux disease without esophagitis; M79.18 Myalgia, other site; R39.81 Functional urinary incontinence; Z96.642 Presence of left artificial hip joint; Z87.891 Personal history of nicotine dependence; G47.33 Obstructive sleep apnea (adult) (pediatric); M25.562 Pain in left knee; M25.512 Pain in left shoulder; W18.30XA Fall on same level, unspecified, initial encounter; Z79.51 Long term (current) use of inhaled steroids; R06.02 Shortness of breath; T45.8X5A Adverse effect of other primarily systemic and hematological agents, initial encounter; Y92.239 Unspecified place in hospital as the place of occurrence of the external cause
CPT/HCPCS: 36415; 36416; 36430; 51702; 71045; 73552; 73562; 76000; 80048; 80053; 82607; 82746; 82962; 83036; 83540; 83550; 83880; 84439; 84443; 84481; 84484; 85025; 86850; 86900; 86920; 87426; 93005; 94640; 96372; 97110; 97161; 97166; 97530; 97535; 99285; C1713; J0690; J1170; J1580; J1650; J1940; J2250; J2370; J2704; J3010; J3535; J7030; J7611; P9016

== ENCOUNTER → 2021-07-02 10:22 | Outpatient (BNVA) | payer MEDICARE, MEDICAID, SELFPAY | PROVIDERS: PCP Internal Medicine; Visit Provider Orthopaedic Surgery | DX: S72.92XA Unspecified fracture of left femur, initial encounter for closed fracture (principal); Z98.890 Other specified postprocedural states; X58.XXXA Exposure to other specified factors, initial encounter | CPT/HCPCS: 73562 ==

== ENCOUNTER → 2021-08-06 10:25 | Outpatient (BNVA) | payer MEDICARE, MEDICAID, SELFPAY | PROVIDERS: PCP Internal Medicine; Visit Provider Orthopaedic Surgery | DX: S72.92XA Unspecified fracture of left femur, initial encounter for closed fracture (principal); Z98.890 Other specified postprocedural states; X58.XXXA Exposure to other specified factors, initial encounter | CPT/HCPCS: 73560 ==

== ENCOUNTER → 2021-09-04 13:26 | Outpatient (BNVA) | payer MEDICARE, MEDICAID, SELFPAY | PROVIDERS: PCP Internal Medicine; Visit Provider Orthopaedic Surgery | DX: Z98.890 Other specified postprocedural states (principal); S72.492D Other fracture of lower end of left femur, subsequent encounter for closed fracture with routine healing; X58.XXXD Exposure to other specified factors, subsequent encounter | CPT/HCPCS: 73560 ==

== ENCOUNTER → 2021-10-08 14:11 | Outpatient (BNVA) | payer MEDICARE, MEDICAID, SELFPAY | PROVIDERS: PCP Internal Medicine; Visit Provider Orthopaedic Surgery | DX: Z98.890 Other specified postprocedural states (principal); S72.92XA Unspecified fracture of left femur, initial encounter for closed fracture; X58.XXXA Exposure to other specified factors, initial encounter | CPT/HCPCS: 73560; 73565 ==

== ENCOUNTER → 2022-04-11 09:53 | Outpatient (BNVA) | payer OTHER, SELFPAY | PROVIDERS: PCP Nurse Practitioner; Visit Provider Internal Medicine Critical Care Medicine | DX: J96.11 Chronic respiratory failure with hypoxia (principal); Z87.891 Personal history of nicotine dependence; K21.9 Gastro-esophageal reflux disease without esophagitis; I10 Essential (primary) hypertension | CPT/HCPCS: 99204 ==

== ENCOUNTER → 2022-05-07 14:03 | Outpatient (BNVA) | payer OTHER, SELFPAY | PROVIDERS: PCP Nurse Practitioner; Visit Provider Internal Medicine Cardiovascular Disease | DX: I10 Essential (primary) hypertension (principal); E03.8 Other specified hypothyroidism; M19.90 Unspecified osteoarthritis, unspecified site; Z86.73 Personal history of transient ischemic attack (TIA), and cerebral infarction without residual deficits; Z87.891 Personal history of nicotine dependence | CPT/HCPCS: 93005; 99204 ==

== ENCOUNTER 2022-08-13 10:23 | Outpatient (CLI) | payer OTHER, SELFPAY ==
--- NOTE | 2022-08-13 13:14 | PFTS_ITS ---
Date of Study:08/13/22 Date of Dictation: MECHANICS: Forced vital capacity (FVC) is reduced. Forced expiratory volume in one second (FEV1) is reduced. FEV1/FVC is normal. FLOW VOLUME LOOP: Narrow. LUNG VOLUMES: Not measured DIFFUSING CAPACITY FOR CARBON MONOXIDE: Incorrectly measured. Reduced MVV, maximal inspiratory and expiratory pressures. INTERPRETATION: The postbronchodilator spirometry is consistent with severe restriction. There is no significant postbronchodilator response. Maximal voluntary ventilation, maximal inspiratory and expiratory pressure measurements are consistent with neuromuscular weakness. Patient did have difficulty forming a tight seal and following instructions which may have affected the result. MTDD
== END 2022-08-13 10:24 | disposition home or self-care (01) ==
PROVIDERS: PCP Nurse Practitioner Family; Visit Provider Internal Medicine Critical Care Medicine
DX: R06.02 Shortness of breath (principal)
CPT/HCPCS: 94060; 94729; J7611

== ENCOUNTER → 2022-11-27 11:08 | Outpatient (BNVA) | payer OTHER, SELFPAY | PROVIDERS: PCP Nurse Practitioner Family; Visit Provider Internal Medicine Cardiovascular Disease | DX: I10 Essential (primary) hypertension (principal); E03.8 Other specified hypothyroidism; M19.90 Unspecified osteoarthritis, unspecified site; Z86.73 Personal history of transient ischemic attack (TIA), and cerebral infarction without residual deficits; Z87.891 Personal history of nicotine dependence | CPT/HCPCS: 99214; Q3014 ==

== ENCOUNTER 2022-12-07 21:23 | Emergency (ER) | payer OTHER, SELFPAY ==
[2022-12-07 21:24] VITALS: BP 157/91; PULSE 95; RESP 16; TEMP 36.4; O2SAT 93
--- NOTE | 2022-12-07 21:37 | XRR_ITS ---
PROCEDURE INFORMATION: Exam: XR Left Shoulder Exam date and time: 12/07/2022 9:48 PM Age: 72 years old Clinical indication: Injury or trauma; Fall; Blunt trauma (contusions or hematomas); Shoulder; Left; Additional info: Fall L shoulder pain TECHNIQUE: Imaging protocol: Radiologic exam of the Left shoulder. Views: 2 or more views. COMPARISON: CR XR chest 1V portable [id number] 05/21/2021 1:16 PM FINDINGS: Bones/joints: Marked bony demineralization. Chronic deformity distal left clavicle unchanged. Chronic appearing numerous left-sided posterolateral rib fractures superiorly which appear unchanged. There is chronic appearing deformity of the proximal humerus. No definite acute displaced fracture. Soft tissues: Normal. XR/XR shoulder LT min 2V* [id number] IMPRESSION: 1. No definite acute displaced fracture. 2. Bony demineralization limits the exam. Consider CT for further assessment.
--- NOTE | 2022-12-07 21:37 | XRR_ITS ---
PROCEDURE INFORMATION: Exam: XR Chest Exam date and time: 12/07/2022 9:48 PM Age: 72 years old Clinical indication: Injury or trauma; Fall; Blunt trauma (contusions or hematomas); Additional info: Cough, fall TECHNIQUE: Imaging protocol: Radiologic exam of the chest. Views: 1 view. COMPARISON: CR XR chest 1V portable [id number] 05/21/2021 1:16 PM FINDINGS: Lungs: Minimal bibasilar atelectasis or infiltrates. Pleural spaces: Unremarkable. No pleural effusion. No pneumothorax. Heart/Mediastinum: Stable heart size. Bones/joints: Numerous left-sided posterior rib fractures appear new since the previous study. XR/XR chest 1V portable [id number] IMPRESSION: 1. Minimal bibasilar atelectasis or infiltrates. Correlate for pulmonary infection. 2. Numerous left-sided posterior rib fractures appear new since the previous study. Correlate with trauma history and point tenderness. Consider CT.
--- NOTE | 2022-12-07 22:30 | CTR_ITS ---
PROCEDURE INFORMATION: Exam: CT Chest Without Contrast; Diagnostic Exam date and time: 12/07/2022 10:45 PM Age: 72 years old Clinical indication: Pain and injury or trauma; Fall; Blunt trauma (contusions or hematomas); Other: Left shoulder and back pain; Additional info: Fall L shoulder and posterior chest pain TECHNIQUE: Imaging protocol: Diagnostic computed tomography of the chest without contrast. Radiation optimization: All CT scans at this facility use at least one of these dose optimization techniques: automated exposure control; mA and/or kV adjustment per patient size (includes targeted exams where dose is matched to clinical indication); or iterative reconstruction. Other protocol: This patient has received 0 known CTs and 0 known cardiac nuclear medicine studies in the 12 months prior to the current study. COMPARISON: CR (CHEST, ) 12/07/2022 9:48 PM RADIATION DOSE METRICS: Total DLP (mGy-cm): 334.27 FINDINGS: Lungs: Mild emphysema. Biapical scarring. Linear regions of scarring or atelectasis in the dhtjy-[id number]-[id number]-left lower lobe. No focal pneumonia. Pleural spaces: Unremarkable. No pneumothorax. No pleural effusion. Heart: Unremarkable. No cardiomegaly. No pericardial effusion. Coronary arteries: Marked coronary artery atherosclerosis. Lymph nodes: Unremarkable. No enlarged lymph nodes. Vasculature: Unremarkable. No aortic aneurysm. Gallbladder and bile ducts: Gallstones. Bones/joints: Nondisplaced left 2nd posterior rib fracture appears acute. Additional acute anterior left 1st rib fracture which appears acute. Chronic left 3rd through 10th left-sided rib fractures. Old fracture distal left clavicle again present. Bones are diffusely demineralized. There are numerous compression deformities of the thoracic spine which are age indeterminate. Moderate T6-T7 anterior compression deformity, mild T8 central compression deformity moderate T10 central mild T11 superior and moderate L1 superior endplate compression deformities. No significant retropulsion. Soft tissues: Unremarkable. CT/CT chest wo con [id number] IMPRESSION: 1. Nondisplaced left anterior 1st rib fracture and left posterior 2nd rib fracture. Chronic appearing left 3rd through 10th left rib fractures. Correlate with point tenderness. No pneumothorax. 2. Numerous compression deformities of the thoracic and upper lumbar spine which are age indeterminate. Correlate with point tenderness. COMMENTS: In the absence of a history or active diagnosis of lung cancer, it is recommended that this patient with emphysema be evaluated for enrollment in a low dose CT lung cancer screening program.
--- NOTE | 2022-12-07 22:40 | ED_ITS ---
HPI - Fall General: Chief Complaint: Fall Stated Complaint: fall Time Seen by Provider: 12/07/22 21:26 Source: patient History of Present Illness: 72-year-old female who does not walk much. She got up out of her chair at home, and believes she tripped on her own feet, fell striking her left shoulder. She denies head injury. There is no other complaint of pain except the left shoulder. No vomiting. No headache. No recent illness. She did not get knocked out or lose consciousness. She remembers the event. MD complaint: fall Fall from: standing Fall witnessed: yes, by family Place fall occurred: home Loss of consciousness: None Prolonged down time: no Symptoms prior to fall: none Context: tripped/slipped Location of injury - extremities: Left: shoulder Severity: moderate Quality: other Associated symptoms-after fall: Reports difficulty walking (Chronic); Denies abdominal pain, chest pain, confusion, headache(s), lightheadedness, neck pain, numbness or short of breath Review of Systems Const: Denies: fever(s) Eyes: Denies: change in vision ENMT: Denies: throat pain Card: Denies: chest pain or lightheadedness GI: Denies: abdominal pain Musc: Denies: neck pain Neuro: Reports: difficulty walking (Chronic); Denies: headache(s) or confusion PFSH ED PFSH: Medical History Adult onset hypothyroidism Age-related osteoporosis without current pathological fracture Anemia, unspecified Arteriopathy, intracranial, associated with hemoglobinopathy, remote, resolved 1984 in [place] Chronic obstructive pulmonary disease, unspecified Chronic osteoarthritis Her medical issues are stable, and we will continue her current present management. Contracture, left foot Dependent on walker for ambulation Environmental and seasonal allergies Essential (primary) hypertension Gastro-esophageal reflux disease without esophagitis Hemiplegia, unspecified affecting left nondominant side Lives in assisted living facility Myofascial pain syndrome Nocturnal oxygen desaturation On supplemental oxygen therapy Stroke Urinary incontinence due to immobility Vitamin D deficiency Surgical History History of arteriovenous malformation (AVM) 1984 History of fracture of clavicle History of left hip replacement History of shoulder surgery History of total hysterectomy with bilateral salpingo-oophorectomy (BSO) Family History Mother Cancer Liver Other Hypertension Hypothyroid Social History Smoking and tobacco status: former smoker Quit status (tobacco): has quit using tobacco Year quit tobacco: 2013 Former quit date comment: 1 ppd X 43 years Lives independently: No Housing: Assisted Living Facility Current gender identity: Female Physical Exam Const: COMMON NORMALS: no acute distress GENERAL APPEARANCE: frail appearing (Mildly); not ill appearing HENMT: COMMON NORMALS: normocephalic and Normal external nose present HEAD & SCALP: normocephalic FACE & SINUS: normal facial exam and face symmetric NOSE: Normal external nose present Eye: COMMON NORMALS: Equal, round and reactive pupils present and EOMs intact bilaterally PUPIL: Yes Equal, round and reactive pupils present Chest: COMMONS NORMALS: normal inspection of the chest CHEST: Yes Symmetrical chest wall rise and No localized rib tenderness with anteroposterior compression Resp: COMMON NORMALS: normal respiratory effort, No use of accessory muscles a nd clear to auscultation bilaterally AUSCULTATION: clear to auscultation bilaterally Cardio: COMMON NORMALS: regular rate and regular rhythm RATE: regular rate RHYTHM: regular rhythm GI: COMMON NORMALS: Normal to inspection, nondistended, normoactive bowel sounds present, Soft to palpation and non-tender PALPATION: Yes Soft to palpation Extremity: COMMON NORMALS: capillary refill normal NARRATIVE EXTREMITY EXAM: No shoulder deformity. tenderness over the AC joint. Neuro: DNEISE COMA SCALE: document GCS findings Denise coma scale eye opening: Spontaneous Denise coma scale verbal response: Orientated Denise coma scale motor response: Obey commands [place] coma scale total score: 15 Psych: COMMON NORMALS: mental status grossly normal and cooperative Course Vital Signs: Vital signs: Vital Signs Temperature 97.5 F L 12/07/22 21:24 Pulse Rate 95 12/07/22 21:24 Respiratory Rate 16 12/07/22 21:24 Blood Pressure 157/91 12/07/22 21:24 Pulse Oximetry 93 12/07/22 21:24 Oxygen Delivery Me thod 12/07/22 21:24 Oxygen Flow Rate 2 12/07/22 21:24 MDM - Fall Medical Decision Making 72-year old female presenting after fall. She complains of superior and posterior left shoulder pain. Chest x-ray shows numerous left-sided posterior rib fractures indeterminate age. CT is suggested. Shoulder x-ray did not reveal a fracture. Chest CT shows nondisplaced left anterior rib fracture of the first rib, and posterior left second rib fracture that appear acute. Other fractures appear chronic of the third through the 10th left ribs. She has no increased work of breathing or trouble breathing over baseline. She will be placed in a sling for comfort. She has pain medicine ordered. Frequent icing. Outpatient follow-up. Lab Data Radiology Impressions Chest X-Ray 12/07/22 21:37 IMPRESSION: 1. Minimal bibasilar atelectasis or infiltrates. Correlate for pulmonary infection. 2. Numerous left-sided posterior rib fractures appear new since the previous study. Correlate with trauma history and point tenderness. Consider CT. Shoulder X-Ray 12/07/22 21:37 IMPRESSION: 1. No definite acute displaced fracture. 2. Bony demineralization limits the exam. Consider CT for further assessment. Chest CT 12/07/22 22:30 IMPRESSION: 1. Nondisplaced left anterior 1st rib fracture and left posterior 2nd rib fracture. Chronic appearing left 3rd through 10th left rib fractures. Correlate with point tenderness. No pneumothorax. 2. Numerous compression deformities of the thoracic and upper lumbar spine which are age indeterminate. Correlate with point tenderness. COMMENTS: In the absence of a history or active diagnosis of lung cancer, it is recommended that this patient with emphysema be evaluated for enrollment in a low dose CT lung cancer screening program. Discharge Plan Discharge Patient Disposition: Home Clinical Impression: Multiple fractures of rib involving first rib Condition: Stable Prescriptions: No Action albuterol sulfate 2.5 mg /3 mL (0.083 %) solution for nebulization 2.5 mg INHALATION BID@799,1999 carbamazepine 200 mg tablet 200 mg PO BID@799,1999 pantoprazole 40 mg tablet,delayed release (DR/EC) 40 mg PO DAILY@0800 potassium chloride 10 mEq capsule, extended release 10 meq PO BID@ furosemide 20 mg tablet 20 mg PO DAILY@0800 guaifenesin [Mucinex] 600 mg tablet extended release 12hr 600 mg PO BID@799,1999 PRN cyclobenzaprine 10 mg tablet 10 mg PO TID PRN (Reason: muscle spasm) Qty: 90 2RF guaifenesin [Tussin] 100 mg/5 mL liquid 200 mg PO Q4H PRN (Reason: congestion) Qty: 473 0RF levothyroxine 75 mcg tablet 75 mcg PO DAILY (DME) Oxygen concentrator and protable NC2L See Rx Instructions .ROUTE .MEDSUPPLY Qty: 1 0RF Rx Instructions: Use 2L NC 24 hours for 99 months Celebrex 100 mg capsule 100 mg PO BID Qty: 60 5RF hydrocodone-acetaminophen 5-325 mg tablet 1 tab PO BID PRN loperamide 2 mg capsule 2 mg PO Q6H PRN naproxen 500 mg tablet 500 mg PO BID Spiriva Respimat 2.5 mcg/actuation mist 2 inh inhalation QAM fluticasone propion-salmeterol [Advair Diskus] 500-50 mcg/dose blister with device 1 inh inhalation BID Qty: 60 5RF (DME) Oxygen concentrator with home fill 2 refillable bottles See Rx Instructions .Route .MEDSUPPLY Qty: 1 0RF Rx Instructions: use 24 hours day @2l NC (DME) Oxygen tank cooper for wheelchair See Rx Instructions .Route .MEDSUPPLY Qty: 1 0RF Rx Instructions: As directed tramadol 50 mg tablet 50 mg PO .at bedtime Qty: 30 5RF (DME) oxygen 2L/NC See Rx Instructions .Route .MEDSUPPLY Qty: 1 0RF Rx Instructions: As directed fluticasone propionate [Flonase Allergy Relief] 50 mcg/actuation spray,suspension 1 spray intranasal DAILY Qty: 16 5RF Rx Instructions: administer into each nostril duloxetine 20 mg capsule,delayed release(DR/EC) 20 mg PO DAILY Qty: 90 0RF Caltrate 600-D Plus Minerals 600 mg calcium- 800 unit-50 mg tablet 1 tab PO BID@0800,2000 Qty: 60 5RF ProAir HFA 90 mcg/actuation HFA aerosol inhaler 2 puff INHALATION Q6H PRN (Reason: SHORTNESS OF BREATH/WHEEZING) Zyrtec 10 mg tablet 10 mg PO DAILY@0800 Rx Instructions: Stop Claritin cholecalciferol (vitamin D3) 125 mcg (5,000 unit) capsule 125 mcg PO DAILY@0800 Milk of Magnesia 30 ml PO Q4H PRN (Reason: UNKNOWN) valsartan 80 mg tablet 40 mg PO DAILY@0800 Rx Instructions: May use additional 40mg if BP >130/80 Discharge Orders: Discharge ED (Routine); Ordered 12/07/22 Ordered By: Dagoberto Purvis Referrals: Apolonia Li, [facility] [Primary Care Provider] - Patient Instructions: Rib Fracture (ED), Opioid Safety, Pain Management Activity Restrictions/Additional Instructions: You have fractures of your first and second rib causing pain. He will be placed in a shoulder sling for comfort. Come out of the sling as soon as possible. You may take pain medication if necessary for pain. Ice frequently to the area for the next 48 hours especially. Return for any worsening trouble breathing, worsening pain despite treatment, other concerning symptoms. Coding Level of Care Code ED Tool And Die Supervisor for Lacho Fwd Exam Comprehensive
[2022-12-08] MEDS: oxyCODONE-APAP 5-325 mg Tablet 1 TAB PO (00:31)
== END 2022-12-08 03:23 | disposition home or self-care (01) ==
PROVIDERS: Emergency Provider Emergency Medicine; PCP Nurse Practitioner Family
DX: S22.42XA Multiple fractures of ribs, left side, initial encounter for closed fracture (principal); J44.9 Chronic obstructive pulmonary disease, unspecified; I10 Essential (primary) hypertension; I69.354 Hemiplegia and hemiparesis following cerebral infarction affecting left non-dominant side; Z87.891 Personal history of nicotine dependence; W01.0XXA Fall on same level from slipping, tripping and stumbling without subsequent striking against object, initial encounter
CPT/HCPCS: 71045; 71250; 73030; 99284

== ENCOUNTER → 2022-12-17 10:23 | Outpatient (BNVA) | payer OTHER, SELFPAY | PROVIDERS: PCP Nurse Practitioner Family; Visit Provider Internal Medicine Pulmonary Disease | DX: J96.11 Chronic respiratory failure with hypoxia (principal); Z87.891 Personal history of nicotine dependence; J98.4 Other disorders of lung; G70.9 Myoneural disorder, unspecified; Z99.81 Dependence on supplemental oxygen | CPT/HCPCS: 99214 ==

== ENCOUNTER 2023-07-14 14:55 | Inpatient (IN) | payer OTHER, SELFPAY ==
[2023-07-14] VITALS (10 sets, daily range): BP systolic 69–112; BP diastolic 59–82; PULSE 87–114; RESP 18–20; TEMP 36.6; O2SAT 91–95
--- NOTE | 2023-07-14 14:57 | XRR_ITS ---
PROCEDURE INFORMATION: Exam: XR Chest Exam date and time: 07/14/2023 3:07 PM Age: 73 years old Clinical indication: Shortness of breath; Additional info: SOB TECHNIQUE: Imaging protocol: Radiologic exam of the chest. Views: 1 view. COMPARISON: CT chest [facility] [id number] 12/07/2022 10:45 PM FINDINGS: Lungs: Mild emphysematous change with small amount of basilar atelectasis versus scarring and mild apical pleural thickening/scarring. Compared with November 17, 2022 chest radiograph exam, mild increased interstitial markings in the left upper lobe. No focal consolidation. No significant pleural effusion. No pneumothorax. Pleural spaces: See Lungs finding. Heart/Mediastinum: Cardiac silhouette is mildly prominent. Vasculature: Arteriosclerosis of the thoracic aorta. Bones/joints: Prior old rib fractures on the left. Old healed fracture deformity of the distal left clavicle. Old healed fracture deformity of the left shoulder. XR/XR chest 1V portable 12220 IMPRESSION: 1. Mild emphysematous change with suggestion of mild scarring within the lung bases and lung apices. 2. Mild increased interstitial markings in the left upper lobe in relation to prior exam and consider mild interstitial infiltrate or pneumonitis. No consolidation or effusion.
--- NOTE | 2023-07-14 15:10 | W.ED.SOB ---
HPI - SOB/Dyspnea General: Chief Complaint: Shortness of Breath/Dyspnea Stated Complaint: SOB/AMS Time Seen by Provider: 07/14/23 14:56 Source: patient and EMS Mode of arrival: EMS Limitations: no limitations History of Present Illness: HPI Narrative: 73-year-old female has a history of COPD she is on 3 L oxygen at baseline states that over the last day she been having increasing shortness of breath had a slight cough as well. Denies any fevers she has had to turn her oxygen up to 5 L patient was given breathing treatment in route she denies any chest pain denies any worsening proving factors Associated symptoms: Deny abdominal pain, chest pain, fever(s), nausea or vomiting Review of Systems Const: Denies: fever(s), chills or body aches ENMT: Denies: throat pain or dental pain Card: Denies: chest pain Resp: Reports: dyspnea and productive cough GI: Denies: abdominal pain, nausea, vomiting or diarrhea : Denies: dysuria Musc: Denies: neck pain or back pain Skin/Breast: Denies: rash Neuro: Denies: headache(s) PFSH ED PFSH: Medical History Adult onset hypothyroidism Age-related osteoporosis without current pathological fracture Anemia, unspecified Arteriopathy, intracranial, associated with hemoglobinopathy, remote, resolved 1984 in [place] Chronic obstructive pulmonary disease, unspecified Chronic osteoarthritis Her medical issues are stable, and we will continue her current present management. Contracture, left foot Dependent on walker for ambulation Environmental and seasonal allergies Essential (primary) hypertension Gastro-esophageal reflux disease without esophagitis Hemiplegia, unspecified affecting left nondominant side Lives in assisted living facility Myofascial pain syndrome Nocturnal oxygen desaturation On supplemental oxygen therapy Stroke Urinary incontinence due to immobility Vitamin D deficiency Surgical History History of arteriovenous malformation (AVM) 1984 History of fracture of clavicle History of left hip replacement History of shoulder surgery History of total hysterectomy with bilateral salpingo-oophorectomy (BSO) Family History Mother Cancer Liver Other Hypertension Hypothyroid Social History Smoking and tobacco status: former smoker Quit status (tobacco): has quit using tobacco Year quit tobacco: 2013 Former quit date comment: 1 ppd X 43 years Lives independently: No Housing: Assisted Living Facility Current gender identity: Female Physical Exam Const: COMMON NORMALS: patient oriented x3 HENMT: COMMON NORMALS: normocephalic and atraumatic HEAD & SCALP: normocephalic and atraumatic Eye: COMMON NORMALS: conjunctivae normal CONJUNCTIVA: Yes conjunctivae normal Neck/C-Spine: COMMON NORMALS: full ROM and supple Chest: COMMONS NORMALS: normal inspection of the chest and normal palpation of entire chest wall Resp: COMMON NORMALS: No retractions and No use of accessory muscles EFFORT & INSPECTION: Yes respiratory distress AUSCULTATION: wheezes Cardio: COMMON NORMALS: regular rate, regular rhythm and No murmurs present (Cardio) RATE: regular rate RHYTHM: regular rhythm GI: COMMON NORMALS: Normal to inspection, nondistended, normoactive bowel sounds present, Soft to palpation, non-tender and no masses PALPATION: Yes Soft to palpation Extremity: COMMON NORMALS: normal to inspection and full ROM Neuro: COMMON NORMALS: patient oriented x3, moves all extremities and no focal motor deficits Psych: COMMON NORMALS: mental status grossly normal, Normal thought process present and cooperative THOUGHT PROCESS: Normal thought process present Skin: COMMON NORMALS: no rashes or lesions noted and no wounds GENERAL SKIN EXAM: no rashes or lesions noted Course Vital Signs: Vital signs: Vital Signs Temperature 97.8 F 07/14/23 15:29 Pulse Rate 98 07/14/23 16:12 Respiratory Rate 20 H 07/14/23 15:50 Blood Pressure 112/82 07/14/23 15:05 Pulse Oximetry 92 07/14/23 15:50 Oxygen Delivery Me thod Nasal Cannula 07/14/23 15:50 Oxygen Flow Rate 2 07/14/23 15:50 MDM - SOB/Dyspnea Medical Decision Making Patient presents here with shortness of breath she does have hypoxia here on her baseline oxygen history of COPD her BNP is quite elevated today could also have CHF spoke to the hospitalist will admit at this time. Medical Records I reviewed the patient's medical records. Lab Data I reviewed the patient's lab results. 07/14/23 15:05 07/14/23 15:05 Labs/Radiology: Radiology Impressions Chest X-Ray 07/14/23 14:57 IMPRESSION: 1. Mild emphysematous change with suggestion of mild scarring within the lung bases and lung apices. 2. Mild increased interstitial markings in the left upper lobe in relation to prior exam and consider mild interstitial infiltrate or pneumonitis. No consolidation or effusion. Laboratory Results WBC 8.81 10^3/uL (3.29-11.43) 07/14/23 15:05 RBC 3.75 10^6/uL (3.85-5.65) L 07/14/23 15:05 Hgb 9.60 g/dL (11.27-16.99) L 07/14/23 15:05 Hct 32.1 % (36-47) L 07/14/23 15:05 MCV 85.6 fl (85-98) 07/14/23 15:05 MCH 25.6 pg (27-33) L 07/14/23 15:05 MCHC 29.9 g/dL (30-55) L 07/14/23 15:05 RDW 16.9 % (12.1-15.1) H 07/14/23 15:05 Plt Count 315 10^3/cmm (157-399) 07/14/23 15:05 MPV 10.0 fL (7.4-10.4) 07/14/23 15:05 Neut % (Auto) 73.0 % 07/14/23 15:05 Lymph % (Auto) 18.2 % 07/14/23 15:05 [place] % (Auto) 7.9 % 07/14/23 15:05 Eos % (Auto) 0.1 % 07/14/23 15:05 Baso % (Auto) 0.2 % 07/14/23 15:05 Neut # (Auto) 6.43 10^3/uL (1.8-7.7) 07/14/23 15:05 Lymph # (Auto) 1.6 10^3/uL (0.8-4.8) 07/14/23 15:05 [place] # (Auto) 0.7 10^3/uL (0.2-0.9) 07/14/23 15:05 Eos # (Auto) 0.0 10^3/uL (0.0-0.8) 07/14/23 15:05 Baso # (Auto) 0.0 10^3/uL (0.0-0.1) 07/14/23 15:05 Nucleated RBC % (auto) 0 % 07/14/23 15:05 Nucleated RBCs # 0.0 /100WBC 07/14/23 15:05 Specimen Type Arterial 07/14/23 16:00 Sample Site Brachial, right 07/14/23 16:00 ABG pH 7.41 (7.35-7.45) 07/14/23 16:00 ABG pCO2 38.6 mmHg (35-45) 07/14/23 16:00 ABG pO2 61.7 mmHg (80.0-100.0) L 07/14/23 16:00 ABG HCO3 24.3 mmol/L (22-26) 07/14/23 16:00 ABG Base Excess -0.2 mmol/L (-2.0-2.0) 07/14/23 16:00 Bryce Test N/a 07/14/23 16:00 Hematocrit 29.4 % (37-47) L 07/14/23 16:00 Hgb O2 Saturation 89.0 % (95-100) L 07/14/23 16:00 Carboxyhemoglobin 1.5 %THgb (0.4-20.1) 07/14/23 16:00 Methemoglobin 0.3 % (0.4-1.5) L 07/14/23 16:00 Total Hemoglobin 9.6 g/dL (12-16) L 07/14/23 16:00 O2 Delivery Device Nc 07/14/23 16:00 O2 Liters/Min 2.0 % 07/14/23 16:00 FiO2 28.0 % 07/14/23 16:00 Food Service Hotel Runner ID Gd 07/14/23 16:00 Sodium 134 mmol/L (136-145) L 07/14/23 15:05 Potassium 5.0 mmol/L (3.5-5.1) 07/14/23 15:05 Chloride 97 mmol/L (98-107) L 07/14/23 15:05 Carbon Dioxide 26 mmol/L (22-29) 07/14/23 15:05 Anion Gap 16.0 (5-19) 07/14/23 15:05 BUN 33 mg/dL (8-23) H 07/14/23 15:05 Creatinine 1.8 mg/dL (0.5-0.9) H 07/14/23 15:05 GFR Calculation Not Reportable 07/14/23 15:05 Glucose 114 mg/dL (65-115) 07/14/23 15:05 Calculated Osmolality 286 mOsm/kg (285-295) 07/14/23 15:05 Calcium 10.0 mg/dL (8.5-10.5) 07/14/23 15:05 Total Bilirubin 0.2 mg/dL (0.15-1.2) 07/14/23 15:05 AST 18 U/L (0-32) 07/14/23 15:05 ALT 22 U/L (0-33) 07/14/23 15:05 Alkaline Phosphatase 96 U/L (35-105) 07/14/23 15:05 NT-Pro-B Natriuret Pep 54969 pg/mL (0-125) H 07/14/23 15:05 Total Protein 6.9 g/dL (6.6-8.7) 07/14/23 15:05 Albumin 4.1 g/dL (3.5-5.2) 07/14/23 15:05 Globulin 2.8 g/dL (1.3-4.6) 07/14/23 15:05 SARS-CoV-2 Ag (Rapid) negative (Negative) 07/14/23 15:20 EKG Data EKG 1: I personally reviewed and interpreted this EKG as follows: EKG Interpretation Date: 07/14/23 EKG interpretation time: 15:50 Interpretation: sinus tach hr [address] or t wave abormalities qrs 85 qtc 377 Discharge Plan Discharge Patient Disposition: Admitted As Inpatient Clinical Impression: Chronic respiratory failure with hypoxia, Chronic obstructive pulmonary disease, unspecified, Congestive heart failure Condition: Stable Coding Level of Care Code ED Vehicle Washer for Lacho Batista
[2023-07-14 15:11] LABS: Basophils % 0.2 %; Eosinophils % 0.1 %; Hematocrit 32.1 % (36-47); Lymphocytes # 1.6 10^3/uL (0.8-4.8); Lymphocytes % 18.2 %; Mean Corpuscular HGB Conc 29.9 g/dL (30-55); Mean Corpuscular Hemoglobin 25.6 pg (27-33); Mean Corpuscular Volume 85.6 fl (85-98); Monocytes # 0.7 10^3/uL (0.2-0.9); Monocytes % 7.9 %; Neutrophils # 6.43 10^3/uL (1.8-7.7); Nucleated Red Blood Cells % 0 %; Platelet Count 315 10^3/cmm (157-399); Red Blood Count 3.75 10^6/uL (3.85-5.65); Red Cell Distribution Width 16.9 % (12.1-15.1); White Blood Count 8.81 10^3/uL (3.29-11.43)
[2023-07-14 15:47] LABS: Alanine Aminotransferase 22 U/L (0-33); Albumin Level 4.1 g/dL (3.5-5.2); Alkaline Phosphatase 96 U/L (35-105); Aspartate Amino Transferase 18 U/L (0-32); Blood Urea Nitrogen 33 mg/dL (8-23); Carbon Dioxide 26 mmol/L (22-29); Chloride 97 mmol/L (98-107); Globulin 2.8 g/dL (1.3-4.6); Glucose 114 mg/dL (65-115); NT Pro B Type Natriuretic Pept 23689 pg/mL (0-125); Osmolality Calculated 286 mOsm/kg (285-295); Sodium 134 mmol/L (136-145); Total Bilirubin 0.2 mg/dL (0.15-1.2); Total Protein 6.9 g/dL (6.6-8.7)
[2023-07-14] MEDS: methylPREDNISolone sod succ 125 MG in water for injection-sterile 2 ML 24 MG IVP (15:48)
--- NOTE | 2023-07-14 15:50 | ECG_ITS ---
[facility] Test Date: 2023-07-14 Pat Name: Nicole Oseguera Department: Room: Gender: Female Family Mediator: : 1950 Requested By: Bee Xiong Order Number: [id number] Ludin MD: Kobe Pearson M.D. Measurements Intervals Winter Rate: 103 P: 68 WA: 151 QRS: 17 QRSD: 85 T: 3 QT: 318 QTc: 417 Interpretive Statements SINUS TACHYCARDIA NONSPECIFIC T-WAVE ABNORMALITY Compared to ECG 05/21/2021 13:30:56 T-wave abnormality now present Sinus rhythm no longer present Electronically Signed On 07-14-2023 16:20:42 CDT by Kobe Pearson M.D. [email or web address]
[2023-07-14] MEDS: FUROsemide 10 mg/mL SDV 4mL 40 MG IVP (15:55)
[2023-07-14 15:57] LABS: SARS Covid-2 Antigen negative (Negative)
[2023-07-14] MEDS: ipratropium-albuterol 3 mL Neb INHALATION (15:59)
[2023-07-14 16:16] LABS: ABG PCO2 38.6 mmHg (35-45); ABG PH Result 7.41 (7.35-7.45); Arterial Blood Gas Hematocrit 29.4 % (37-47); Base Excess ABG -0.2 mmol/L (-2.0-2.0); Blood Gas Operator Identificat GD; Blood Gas Sample Site Brachial, right; Blood Gas Sample Type Arterial; Carboxyhemoglobin 1.5 %THgb (0.4-20.1); HCO3 ABG 24.3 mmol/L (22-26); Methemoglobin 0.3 % (0.4-1.5); Oxygen Device NC; PO2 ABG 61.7 mmHg (80.0-100.0); Total Hemoglobin 9.6 g/dL (12-16)
--- NOTE | 2023-07-14 16:46 | ECG_ITS ---
[facility] Test Date: 2023-07-14 Pat Name: Nicole Oseguera Department: Room: 269 Gender: Female Whiting Can Worker: : 1950 Requested By: Bee Xiong Order Number: [id number] Ludin MD: Kobe Pearson M.D. Measurements Intervals [place] Rate: 107 P: 67 DC: 146 QRS: 10 QRSD: 89 T: 26 QT: 317 QTc: 425 Interpretive Statements SINUS TACHYCARDIA NONSPECIFIC T-WAVE ABNORMALITY Compared to ECG 07/14/2023 15:50:38 No significant changes Electronically Signed On 07-14-2023 18:40:10 CDT by Kobe Pearson M.D. [id number]
[2023-07-14 16:52] LABS: D Dimer 0.66 ug/mLFEU (0-0.59)
[2023-07-14 17:01] LABS: Troponin(5th) Baseline 93 ng/L (0-10)
--- NOTE | 2023-07-14 17:16 | P.HP_ITS ---
Providers/Chief Complaint Admitting Physician: Liang Rivera MD Primary Care Provider: OMID Purdy Chief Complaint: SOB/AMS History of Present Illness Nicole Oseguera is a 73 year old female resident of [facility], wheelchair- bound related to left-sided weakness from her brain surgery in the past, presented with chief complaint of hypoxia, fatigue, lethargy. In the ER she was diagnosed with relative hypoxia she is diagnosed with possible congestive heart failure with high BNP D-dimer is not high according to her age, she is not complaining any chest pain shortness of breath, nausea or vomiting. Family is at the bedside No previous history of CHF She is following up with Dr. Plasencia for COPD. When asked patient what brought her here in the hospital she stated she was feeling hot Review of Systems Const: Denies: fever(s) Eyes: Denies: change in vision ENMT: Denies: throat pain Card: Denies: chest pain Resp: Denies: dyspnea GI: Denies: abdominal pain : Denies: flank pain Musc: Reports: back pain Skin/Breast: Denies: changing lesions Medications/Allergies Home Medications Medication Instructions Recorded Confirmed Last Taken Type carbamazepine 200 mg tablet 200 mg PO BID@0800,199912/02/19 07/14/23 05/16/21 History pantoprazole 40 mg tablet,delayed 40 mg PO DAILY@79912/02/19 07/14/23 05/16/21 History release furosemide 20 mg tablet 20 mg PO DAILY@0808/22/20 07/14/23 05/16/21 History cyclobenzaprine 10 mg tablet 10 mg PO TID PRN muscle spasm #90 03/06/21 07/14/23 05/16/21 Rx tabs Milk of Magnesia 30 ml PO Q4H PRN UNKNOWN 05/16/21 07/14/23 Unknown History cetirizine 10 mg tablet (Zyrtec) 10 mg PO DAILY@79905/16/21 07/14/23 05/16/21 History cholecalciferol (vitamin D3) 125 250 mcg PO DAILY@79905/16/21 07/14/23 1 History mcg (5,000 unit) capsule duloxetine 20 mg capsule,delayed 20 mg PO DAILY #90 caps 07/18/21 07/14/23 Unknown Rx release calcium 600 mg-D3 800 unit-mag11 1 tab PO BID@0800,1999 #60 tabs 01/16/22 07/14/23 Unknown Rx 50 ap-fvse-yybvpr-etta-s.borat tablet (Caltrate 600-D Plus Minerals) Oxygen concentrator and protable #1 ea 01/29/22 07/14/23 Unknown Rx NC2L levothyroxine 75 mcg tablet 75 mcg PO DAILY 01/29/22 07/14/23 Unknown History fluticasone 500 mcg-salmeterol 50 1 inh inhalation BID #60 ea 02/26/22 07/14/23 Unknown Rx mcg/dose blistr powdr for inhalation (Advair Diskus) Oxygen concentrator with home fill #1 ea 03/05/22 07/14/23 Unknown Rx 2 refillable bottles Oxygen tank cooper for wheelchair #1 ea 03/05/22 07/14/23 Unknown Rx fluticasone propionate 50 1 spray intranasal DAILY #16 grams 04/11/22 07/14/23 Unknown Rx mcg/actuation nasal spray,suspension (Flonase Allergy Relief) oxygen #1 ea 04/11/22 07/14/23 Unknown Rx loperamide 2 mg capsule 8 mg PO DAILY PRN Diarrhea 05/07/22 07/14/23 Unknown History naproxen 500 mg tablet 500 mg PO BID 11/27/22 07/14/23 Unknown History tiotropium bromide 2.5 2 inh inhalation QAM 11/27/22 07/14/23 Unknown History mcg/actuation mist for inhalation (Spiriva Respimat) valsartan 80 mg tablet 40 mg PO DAILY@0800 11/27/22 07/14/23 Unknown History levalbuterol tartrate 45 2 inh inhalation Q6H #15 grams 01/26/23 07/14/23 Unknown Rx mcg/actuation aerosol inhaler (Xopenex HFA) acetaminophen 325 mg tablet 325 - 650 mg PO Q6H PRN Pain 07/14/23 07/14/23 Unknown History calcium carbonate 200 mg calcium 200 mg PO QID gerd 07/14/23 07/14/23 Unknown History (500 mg) chewable tablet (Calcium Antacid) chlorhexidine gluconate 0.12 % See Rx Instructions .Route .COMPLEX 07/14/23 07/14/23 Unknown History mouthwash guaifenesin 200 mg tablet 200 mg PO Q4H PRN Congestion 07/14/23 07/14/23 Unknown History guaifenesin 400 mg tablet (Mucus See Rx Instructions .Route .COMPLEX 07/14/23 07/14/23 Unknown History Relief) hydrocodone 7.5 mg-acetaminophen 1 tab PO Q46H PRN Pain 07/14/23 07/14/23 U nknown History 325 mg tablet ipratropium bromide 17 1 puff inhalation QID 07/14/23 07/14/23 Unknown History mcg/actuation HFA aerosol inhaler (Atrovent HFA) lidocaine 5 % topical patch 1 patch topical DAILY 07/14/23 07/14/23 Unknown History hbmvfpcw-ibkr-nbsnr acid 240 1 tab PO DAILY 07/14/23 07/14/23 Unknown History mcg-vit K 120 qua-smbrmo-nsgz 293 tablet (Alive Women's 50 Plus (fruit-veg blend)) potassium chloride 20 mEq 10 meq PO QAM 07/14/23 07/14/23 Unknown History tablet,extended release tramadol 50 mg tablet 50 mg PO TID PRN Pain 07/14/23 07/14/23 Unknown History Allergies Allergy/AdvReac Type Severity Reaction Status Date / Time codeine Allergy Unknown Unknown Verified 12/17/22 10:37 morphine Allergy Unknown Unknown Verified 12/17/22 10:37 lisinopril AdvReac Intermediate Cough Verified 12/17/22 10:37 PFSH Acute PFSH: Medical History Adult onset hypothyroidism Age-related osteoporosis without current pathological fracture Anemia, unspecified Arteriopathy, intracranial, associated with hemoglobinopathy, remote, resolved 1984 in [place] Chronic obstructive pulmonary disease, unspecified Chronic osteoarthritis Her medical issues are stable, and we will continue her current present management. Contracture, left foot Dependent on walker for ambulation Environmental and seasonal allergies Essential (primary) hypertension Gastro-esophageal reflux disease without esophagitis Hemiplegia, unspecified affecting left nondominant side Lives in assisted living facility Myofascial pain syndrome Nocturnal oxygen desaturation On supplemental oxygen therapy Stroke Urinary incontinence due to immobility Vitamin D deficiency Surgical History History of arteriovenous malformation (AVM) 1985 History of fracture of clavicle History of left hip replacement History of shoulder surgery History of total hysterectomy with bilateral salpingo-oophorectomy (BSO) Family History Mother Cancer Liver Other Hypertension Hypothyroid Social History Smoking and tobacco status: former smoker Quit status (tobacco): has quit using tobacco Year quit tobacco: 2013 Former quit date comment: 1 ppd X 43 years Lives independently: No Housing: Assisted Living Facility Current gender identity: Female Vitals/I&O/Wt Last Vital Signs Temp 97.8 F 07/14/23 15:29 Pulse 98 07/14/23 16:12 Resp 20 H 07/14/23 15:50 BP 69/59 07/14/23 16:35 Pulse Ox 91 07/14/23 16:35 O2 Del Method Nasal Cannula 07/14/23 16:35 O2 Flow Rate 4 07/14/23 16:35 07/14/23 07/14/23 07/14/23 06:59 14:59 22:59 Intake Total 2 / 2 Balance 2 / 2 Physical Exam Narrative: Left-sided chronic weakness Pupillary asymmetry Family at the bedside Pleasant and cooperative GCS 15 No new focal deficit S1, S2 tachycardia Abdomen soft Lower extremity no edema Currently on 4 L nasal cannula I do not appreciate any wheezing Data 07/14/23 15:05 07/14/23 15:05 A&P Assessment and plan (1) Congestive heart failure: (2) Restrictive lung mechanics due to neuromuscular disease: (3) Chronic respiratory failure with hypoxia: (4) On supplemental oxygen therapy: (5) Chronic obstructive pulmonary disease, unspecified: (6) Anemia, unspecified: (7) Lives in assisted living facility: Plan New onset congestive heart failure BNP is high Rule out thromboembolic phenomenon No active chest pain Elevated troponin noted No active chest pain nausea vomiting or shortness of breath I will start her on Lasix Requested echo as well check TSH and B12 Patient is a resident of [facility], she is wheelchair-bound, recently had tooth extracted requesting mechanical soft diet Acute on chronic hypoxia related to venous congestion Patient at baseline uses 3 to 4 L of oxygen related to restrictive disease neuromuscular disorder Acute on chronic kidney disease: Likely cardiorenal we will place Granado catheter for accurate urine output Full code Mechanical soft diet DVT prophylaxis on board Attestations Medical Necessity Statement*: Experienced in the hospital requires more than 2 midnights Diagnoses Congestive heart failure I50.9 Restrictive lung mechanics due to neuromuscular disease J98.4; G70.9 Chronic respiratory failure with hypoxia J96.11 On supplemental oxygen therapy Z99.81 Chronic obstructive pulmonary disease, unspecified J44.9 Anemia, unspecified D64.9 Lives in assisted living facility Z59.3
--- NOTE | 2023-07-14 17:34 | USCV_ITS ---
Nicole Oseguera Age: 73 Gender: F : 1950 Exam Date: 07/14/2023 19:14 Ordering Phys: Liang Rivera MD Technologist: [place] [facility] [place]: chf BP: 130 / 84 HR: 108 Rhythm: Sinus Technical Quality: Technically difficult study MEASUREMENTS (Male / Female) Normal Values 2D ECHO LVOT Diameter 1.9 cm LV Ejection Fraction MOD 2C 44.1 % LV Ejection Fraction 2C AL 42.9 % LA Diameter 3.3 cm Aorta at Sinotubular Diameter 2.5 cm M-MODE Aortic Annulus Diameter 3.4 cm LA Ao Ratio MM 1.2 MV E Point Septal Separation 1.2 cm DOPPLER AV Peak Velocity 145.0 cm/s LVOT Peak Velocity 84.8 cm/s AV Area Cont Eq vti 1.5 cm squared AV Area Cont Eq pk 1.7 cm squared MV Area PHT 4.9 cm squared Mitral E to A Ratio 0.5 MV E' Velocity 31.0 cm/s Mitral E to MV E' Ratio 4.3 Mitral E to LV E' Lateral Ratio 5.2 Mitral E to LV E' Septal Ratio 3.8 TR Peak Velocity 377.7 cm/s TR Peak Gradient 57.1 mmHg TV Peak E Velocity 130.0 cm/s Right Atrial Pressure 3.0 mmHg Pulmonary Artery Systolic Pressu 60.1 mmHg FINDINGS Left Ventricle Poor quality study. Probably normal left ventricular size and function. Estimated ejection fraction 55 to 60%. No obvious wall motion disturbances. Diastolic function not evaluated. Right Ventricle Moderately increased right ventricular size. Mildly decreased right ventricular systolic function. Moderate pulmonary hypertension, RVSP 60.1 mmHg. Right Atrium Mildly increased right atrial size. Left Atrium Mildly increased left atrial size. Mitral Valve Mitral valve not well visualized. Aortic Valve Structurally normal trileaflet aortic valve. Mild aortic valve calcification. Mild aortic valve stenosis, mean gradient 4.7 mmHg, GERTRUDIS 1.5 cm squared. Mild aortic valve regurgitation. Tricuspid Valve Tricuspid valve not well visualized. Mild tricuspid valve regurgitation. Pulmonic Valve Pulmonic valve not well visualized. Pericardium Normal pericardium without effusion. Aorta Aorta not well visualized. IVC Inferior vena cava not visualized. CONCLUSIONS Poor quality study. Probably normal left ventricular size and function. Estimated ejection fraction 55 to 60%. No obvious wall motion disturbances. Diastolic function not evaluated. Moderately increased right ventricular size. Mildly decreased right ventricular systolic function. Moderate pulmonary hypertension, RVSP 60.1 mmHg. Mildly increased right atrial size. Mildly increased left atrial size. Structurally normal trileaflet aortic valve. Mild aortic valve calcification. Mild aortic valve stenosis, mean gradient 4.7 mmHg, GERTRUDIS 1.5 cm squared. Mild aortic valve regurgitation. Previous echo done December 21, 2017. Previous echo revealed pulmonary artery pressure 44 mmHg. Aortic stenosis now present. Otherwise, no change. Dr. Jayro Ferrera MD (Electronically Signed) Final Date: 15 July 2023 05:50 S
[2023-07-14 17:48] LABS: Troponin 5 2HR 82.42 ng/L (0-10)
--- NOTE | 2023-07-14 18:26 | ECG_ITS ---
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 Measurements Intervals [place] Rate: 110 P: -4 IA: 155 QRS: 39 QRSD: 85 T: 49 QT: 319 QTc: 432 Interpretive Statements SINUS TACHYCARDIA MODERATE T-WAVE ABNORMALITY, CONSIDER ANTERIOR ISCHEMIA [-0.1+ mV T-WAVE IN V3/V4] Compared to ECG 07/14/2023 16:46:42 Possible ischemia now present T-wave abnormality still present Electronically Signed On 07-14-2023 18:40:22 CDT by Kobe Pearson M.D. [id number]
[2023-07-14 18:37] LABS: Thyroid Stimulating Hormone 0.34 uIU/mL (0.27-4.20)
[2023-07-14] MEDS: heparin 5,000 unit/mL INJ 1 mL 5000 UNIT SUBCUT (18:52)
[2023-07-14] MEDS: carBAMazepine 200 mg Tablet PO (19:46)
[2023-07-14] MEDS: ipratropium 0.5 mg/2.5 mL Neb INHALATION (20:29)
[2023-07-14] MEDS: levalbuterol 1.25 mg/3 mL Neb INHALATION (20:29)
[2023-07-14 21:45] LABS: Troponin 5 6HR 61.07 ng/L (0-10)
--- NOTE | 2023-07-14 22:19 | ECG_ITS ---
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 Measurements Intervals [place] Rate: 108 P: -1 NM: 151 QRS: 46 QRSD: 86 T: 64 QT: 327 QTc: 440 Interpretive Statements SINUS TACHYCARDIA INDETERMINATE AXIS MODERATE T-WAVE ABNORMALITY, CONSIDER ANTEROLATERAL ISCHEMIA [-0.1+ mV T-WAVE IN V3-V6] Compared to ECG 07/14/2023 18:26:09 Indeterminate axis now present T-wave abnormality still present Possible ischemia still present Electronically Signed On 07-14-2023 23:15:42 CDT by Kobe Pearson M.D. [id number]
[2023-07-15] VITALS (7 sets, daily range): BP systolic 108–132; BP diastolic 62–82; PULSE 68–107; RESP 17–18; TEMP 36.4–36.6; O2SAT 93–98
[2023-07-15] MEDS: levalbuterol 1.25 mg/3 mL Neb INHALATION ×2 (01:38→09:48)
[2023-07-15] MEDS: ipratropium 0.5 mg/2.5 mL Neb INHALATION ×2 (01:38→09:48)
[2023-07-15] MEDS: cyclobenzaprine 10 mg Tablet PO (04:03)
[2023-07-15] MEDS: FUROsemide 10 mg/mL SDV 10mL 60 MG IVP (04:48)
[2023-07-15] MEDS: potassium chloride ER 20 mEq Tablet PO (05:34)
[2023-07-15] MEDS: heparin 5,000 unit/mL INJ 1 mL 5000 UNIT SUBCUT (05:34)
[2023-07-15] MEDS: HYDROcodone-acetaminophen 7.5-325 mg Tablet 1 TAB PO ×2 (05:57→10:07)
[2023-07-15 06:05] LABS: Basophils % 0.2 %; Hematocrit 30.2 % (36-47); Lymphocytes # 1.2 10^3/uL (0.8-4.8); Lymphocytes % 25.4 %; Mean Corpuscular HGB Conc 30.1 g/dL (30-55); Mean Corpuscular Hemoglobin 25.6 pg (27-33); Mean Corpuscular Volume 84.8 fl (85-98); Mean Platelet Volume 10.3 fL (7.4-10.4); Monocytes # 0.8 10^3/uL (0.2-0.9); Monocytes % 15.8 %; Neutrophils # 2.78 10^3/uL (1.8-7.7); Nucleated Red Blood Cells % 0 %; Platelet Count 276 10^3/cmm (157-399); Red Blood Count 3.56 10^6/uL (3.85-5.65); Red Cell Distribution Width 16.8 % (12.1-15.1)
[2023-07-15 06:23] LABS: Anion Gap 15.3 (5-19); Blood Urea Nitrogen 33 mg/dL (8-23); Calcium 9.6 mg/dL (8.5-10.5); Carbon Dioxide 27 mmol/L (22-29); Chloride 100 mmol/L (98-107); Glucose 99 mg/dL (65-115); Osmolality Calculated 293 mOsm/kg (285-295); Potassium 4.3 mmol/L (3.5-5.1); Sodium 138 mmol/L (136-145)
[2023-07-15] MEDS: predniSONE 20 mg Tablet 40 MG PO (08:20)
[2023-07-15] MEDS: sennosides-docusate Tablet 1 TAB PO (08:20)
[2023-07-15] MEDS: duloxetine 20 mg Capsule PO (08:20)
[2023-07-15] MEDS: levothyroxine 75 mcg Tablet PO (08:20)
[2023-07-15] MEDS: carBAMazepine 200 mg Tablet PO (08:20)
[2023-07-15] MEDS: lidocaine 5% Patch 1 PATCH TOPICAL (08:21)
--- NOTE | 2023-07-15 11:47 | P.DS_ITS ---
Discharge Providers Date of Admission: 07/14/23 16:47 Date of Discharge: July 15, 2023 Attending Provider at Admission: Liang Rivera MD Attending Provider at Discharge: Liang Rivera MD Primary Care Provider: OMID Purdy Diagnoses at Discharge Discharge Diagnosis (1) Congestive heart failure: Status: Acute (2) Restrictive lung mechanics due to neuromuscular disease: Status: Acute (3) Chronic respiratory failure with hypoxia: Status: Acute (4) On supplemental oxygen therapy: Status: Acute (5) Chronic obstructive pulmonary disease, unspecified: Status: Chronic (6) Anemia, unspecified: Status: Chronic (7) Lives in assisted living facility: Status: Chronic Reason for Visit Reason for Visit: SOB/AMS Hospital Course Hospital Course 73-year-old female with multiple comorbid conditions presented from [facility] for chief complaint of hypoxia generalized weakness and fatigue, she was diagnosed with new onset CHF, echo showed preserved ejection fraction, 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 diastolic dysfunction, her BNP is extremely high D-dimer is not high for her age most likely she has diastolic heart failure which was treated with IV diuresis which improved her hypoxia, patient endorsing feeling better on 07/15, her BNP on admission was 23,000, COVID antigen negative, she remained afebrile, at baseline she uses 3 to 4 L of oxygen at the time of discharge she is on 3 L of nasal cannula nursing any chest pain, shortness of breath, she is tolerating her diet as well, hemoglobin 9 she does have ANNE which in my opinion is cardiorenal in nature I will put her on Lasix and potassium supplements I will discontinue naproxen and valsartan considering ANNE, for hypertension we will add amlodipine and metoprolol Physical Exam Narrative: Awake and alert Clinical no signs of fluid overload No active wheezing or crackles S1, S2 Currently on 3 L Pleasant and cooperative Urinary Catheter Management: Granado: Cath Placed During This Visit: yes Reason for Continuing Indwelling Catheter: Acute Urinary Retention or Obstruction Urinary Catheter Date of Insertion: 07/14/23 Urinary Catheter Time of Insertion: 18:49 Discharge Data Studies Completed and Pending Completed Studies During Hospitalization Category Date Time Status XR chest 1V portable [id number] Stat Exams 07/14/23 14:57 Completed CV. echo complete* [id number] Routine Ultrasound 07/14/23 17:34 Completed Radiology Impressions Chest X-Ray 07/14/23 14:57 IMPRESSION: 1. Mild emphysematous change with suggestion of mild scarring within the lung bases and lung apices. 2. Mild increased interstitial markings in the left upper lobe in relation to prior exam and consider mild interstitial infiltrate or pneumonitis. No consolidation or effusion. Laboratory Results WBC 4.80 10^3/uL (3.29-11.43) 07/15/23 05:50 RBC 3.56 10^6/uL (3.85-5.65) L 07/15/23 05:50 Hgb 9.10 g/dL (11.27-16.99) L 07/15/23 05:50 Hct 30.2 % (36-47) L 07/15/23 05:50 MCV 84.8 fl (85-98) L 07/15/23 05:50 MCH 25.6 pg (27-33) L 07/15/23 05:50 MCHC 30.1 g/dL (30-55) 07/15/23 05:50 RDW 16.8 % (12.1-15.1) H 07/15/23 05:50 Plt Count 276 10^3/cmm (157-399) 07/15/23 05:50 MPV 10.3 fL (7.4-10.4) 07/15/23 05:50 Neut % (Auto) 58.0 % 07/15/23 05:50 Lymph % (Auto) 25.4 % 07/15/23 05:50 [place] % (Auto) 15.8 % 07/15/23 05:50 Eos % (Auto) 0.0 % 07/15/23 05:50 Baso % (Auto) 0.2 % 07/15/23 05:50 Neut # (Auto) 2.78 10^3/uL (1.8-7.7) 07/15/23 05:50 Lymph # (Auto) 1.2 10^3/uL (0.8-4.8) 07/15/23 05:50 [place] # (Auto) 0.8 10^3/uL (0.2-0.9) 07/15/23 05:50 Eos # (Auto) 0.0 10^3/uL (0.0-0.8) 07/15/23 05:50 Baso # (Auto) 0.0 10^3/uL (0.0-0.1) 07/15/23 05:50 Nucleated RBC % (auto) 0 % 07/15/23 05:50 Nucleated RBCs # 0.0 /100WBC 07/15/23 05:50 D-Dimer 0.66 ug/mLFEU (0-0.59) H 07/14/23 15:05 Specimen Type Arterial 07/14/23 16:00 Sample Site Brachial, right 07/14/23 16:00 ABG pH 7.41 (7.35-7.45) 07/14/23 16:00 ABG pCO2 38.6 mmHg (35-45) 07/14/23 16:00 ABG pO2 61.7 mmHg (80.0-100.0) L 07/14/23 16:00 ABG HCO3 24.3 mmol/L (22-26) 07/14/23 16:00 ABG Base Excess -0.2 mmol/L (-2.0-2.0) 07/14/23 16:00 Bryce Test N/a 07/14/23 16:00 Hematocrit 29.4 % (37-47) L 07/14/23 16:00 Hgb O2 Saturation 89.0 % (95-100) L 07/14/23 16:00 Carboxyhemoglobin 1.5 %THgb (0.4-20.1) 07/14/23 16:00 Methemoglobin 0.3 % (0.4-1.5) L 07/14/23 16:00 Total Hemoglobin 9.6 g/dL (12-16) L 07/14/23 16:00 O2 Delivery Device Nc 07/14/23 16:00 O2 Liters/Min 2.0 % 07/14/23 16:00 FiO2 28.0 % 07/14/23 16:00 Firefighting Equipment Specialist ID Gd 07/14/23 16:00 Sodium 138 mmol/L (136-145) 07/15/23 05:50 Potassium 4.3 mmol/L (3.5-5.1) 07/15/23 05:50 Chloride 100 mmol/L (98-107) 07/15/23 05:50 Carbon Dioxide 27 mmol/L (22-29) 07/15/23 05:50 Anion Gap 15.3 (5-19) 07/15/23 05:50 BUN 33 mg/dL (8-23) H 07/15/23 05:50 Creatinine 1.6 mg/dL (0.5-0.9) H 07/15/23 05:50 GFR Calculation Not Reportable 07/15/23 05:50 Glucose 99 mg/dL (65-115) 07/15/23 05:50 Calculated Osmolality 293 mOsm/kg (285-295) 07/15/23 05:50 Calcium 9.6 mg/dL (8.5-10.5) 07/15/23 05:50 Magnesium 2.0 mg/dL (1.7-2.3) 07/15/23 05:50 Total Bilirubin 0.2 mg/dL (0.15-1.2) 07/14/23 15:05 AST 18 U/L (0-32) 07/14/23 15:05 ALT 22 U/L (0-33) 07/14/23 15:05 Alkaline Phosphatase 96 U/L (35-105) 07/14/23 15:05 Troponin T Baseline 93 ng/L (0-10) H 07/14/23 15:05 Troponin T 120 Minute 82.42 ng/L (0-10) H 07/14/23 17:18 Delta Troponin T -10.58 ABS# (0-10) L 07/14/23 17:18 Troponin T Hi Sens 6Hr 61.07 ng/L (0-10) H 07/14/23 21:14 Troponin T Hi Sens 6Hr Delta -31.93 ng/L (0-12) L 07/14/23 21:14 NT-Pro-B Natriuret Pep 76901 pg/mL (0-125) H 07/14/23 15:05 Total Protein 6.9 g/dL (6.6-8.7) 07/14/23 15:05 Albumin 4.1 g/dL (3.5-5.2) 07/14/23 15:05 Globulin 2.8 g/dL (1.3-4.6) 07/14/23 15:05 TSH 0.34 uIU/mL (0.27-4.20) 07/14/23 15:05 SARS-CoV-2 Ag (Rapid) negative (Negative) 07/14/23 15:20 Vitals Last Vital Signs Temp 97.5 F L 07/15/23 08:00 Pulse 92 07/15/23 08:00 Resp 18 07/15/23 08:00 BP 124/77 07/15/23 08:00 Pulse Ox 94 07/15/23 08:00 O2 Del Method Nasal Cannula 07/15/23 08:00 O2 Flow Rate 3 07/15/23 08:00 Discharge Plan Discharge Patient Disposition: Xfer SNF Condition: Stable Prescriptions: New metoprolol tartrate 25 mg tablet 25 mg PO BID Qty: 60 3RF amlodipine 10 mg tablet 10 mg PO DAILY Qty: 60 1RF Continued carbamazepine 200 mg tablet 200 mg PO BID@0800,1999 pantoprazole 40 mg tablet,delayed release (DR/EC) 40 mg PO DAILY@0800 cyclobenzaprine 10 mg tablet 10 mg PO TID PRN (Reason: muscle spasm) Qty: 90 2RF levothyroxine 75 mcg tablet 75 mcg PO DAILY (DME) Oxygen concentrator and protable NC2L See Rx Instructions .ROUTE .MEDSUPPLY Qty: 1 0RF Rx Instructions: Use 2L NC 24 hours for 99 months loperamide 2 mg capsule 8 mg PO DAILY PRN (Reason: Diarrhea) Spiriva Respimat 2.5 mcg/actuation mist 2 inh inhalation QAM fluticasone propion-salmeterol [Advair Diskus] 500-50 mcg/dose blister with device 1 inh inhalation BID Qty: 60 5RF (DME) Oxygen concentrator with home fill 2 refillable bottles See Rx Instructions .Route .MEDSUPPLY Qty: 1 0RF Rx Instructions: use 24 hours day @2l NC (DME) Oxygen tank cooper for wheelchair See Rx Instructions .Route .MEDSUPPLY Qty: 1 0RF Rx Instructions: As directed (DME) oxygen 2L/NC See Rx Instructions .Route .MEDSUPPLY Qty: 1 0RF Rx Instructions: As directed fluticasone propionate [Flonase Allergy Relief] 50 mcg/actuation spray,suspension 1 spray intranasal DAILY Qty: 16 5RF Rx Instructions: administer into each nostril duloxetine 20 mg capsule,delayed release(DR/EC) 20 mg PO DAILY Qty: 90 0RF Caltrate 600-D Plus Minerals 600 mg calcium- 800 unit-50 mg tablet 1 tab PO BID@0800,1999 Qty: 60 5RF levalbuterol tartrate [Xopenex HFA] 45 mcg/actuation HFA aerosol inhaler 2 inh inhalation Q6H Qty: 15 3RF cetirizine [Zyrtec] 10 mg tablet 10 mg PO DAILY@0800 Rx Instructions: Stop Claritin cholecalciferol (vitamin D3) 125 mcg (5,000 unit) capsule 250 mcg PO DAILY@0800 Milk of Magnesia 30 ml PO Q4H PRN (Reason: UNKNOWN) Atrovent HFA 17 mcg/actuation Hfa Aerosol Inhaler 1 puff INHALATION QID lidocaine 5 % Adhesive Patch,Medicated 1 patch TOPICAL DAILY Rx Instructions: to low back in the morning, off at bedtime. Press firmly for 10-15 seconds when applying. Mucus Relief 400 mg Tablet See Rx Instructions .ROUTE .COMPLEX Rx Instructions: 400 mg orally ;with 8 ounce glass of water at 8:00am daily chlorhexidine gluconate 0.12 % mouthwash See Rx Instructions .ROUTE .COMPLEX Rx Instructions: rinse with 15 mL for 30 seconds and spit, use twice daily after brushing and flossing Alive Women's 50 Plus (blend) 240-120-300 mcg Tablet 1 tab PO DAILY acetaminophen 325 mg Tablet 325 - 650 mg PO Q6H PRN (Reason: Pain) hydrocodone-acetaminophen 7.5-325 mg Tablet 1 tab PO Q46H PRN (Reason: Pain) Calcium Antacid 200 mg calcium (500 mg) Tablet,Chewable 200 mg PO QID tramadol 50 mg tablet 50 mg PO TID PRN (Reason: Pain) guaifenesin 200 mg Tablet 200 mg PO Q4H PRN (Reason: Congestion) furosemide 20 mg tablet 20 mg PO DAILY@0800 Qty: 60 2RF potassium chloride 20 mEq Tablet Extended Release 10 meq PO QAM Qty: 60 2RF Discontinued naproxen 500 mg tablet 500 mg PO BID valsartan 80 mg tablet 40 mg PO DAILY@0800 Rx Instructions: May use additional 40mg if BP >130/80 Discharge Orders: Discharge Order (Routine); Ordered 07/15/23 Ordered By: Liang Rivera Referrals: Apolonia Li FNP [Primary Care Provider] - 07/21/23 10:00 am (APPOINTMENT IN HOUSE VISIT) Discharge Diet: Cardiac Discharge Activity: Wheelchair as instructed Patient Instructions: Opioid Safety Discharge Attestations Time Spent in Discharge Care*: greater than 30 min Status at Discharge: Cognitive status at discharge: cognitively intact , Behavioral status at discharge: cooperative , Quality Metrics Clinical Quality Measures [ No reported AMI, CVA or VTE this stay] Coding Level of Care Code Acute Code for Chg Fwd Diagnoses Congestive heart failure I50.9 Restrictive lung mechanics due to neuromuscular disease J98.4; G70.9 Chronic respiratory failure with hypoxia J96.11 On supplemental oxygen therapy Z99.81 Chronic obstructive pulmonary disease, unspecified J44.9 Anemia, unspecified D64.9 Lives in assisted living facility Z59.3
--- NOTE | 2023-07-15 11:56 | PC.NURSE ---
discharge pending transport
== END 2023-07-15 13:30 | disposition skilled nursing facility (03) | DRG 291 ==
LOC: ER 16:13 → MEDSURG 16:47
PROVIDERS: Admitting Provider Internal Medicine; Emergency Provider Emergency Medicine; PCP Nurse Practitioner Family; Visit Provider Internal Medicine
DX: I13.0 Hypertensive heart and chronic kidney disease with heart failure and stage 1 through stage 4 chronic kidney disease, or unspecified chronic kidney disease (principal); I50.31 Acute diastolic (congestive) heart failure; J96.11 Chronic respiratory failure with hypoxia; N17.9 Acute kidney failure, unspecified; J44.9 Chronic obstructive pulmonary disease, unspecified; Z99.81 Dependence on supplemental oxygen; Z99.3 Dependence on wheelchair; Z98.890 Other specified postprocedural states; N18.9 Chronic kidney disease, unspecified; Z87.891 Personal history of nicotine dependence; Z86.73 Personal history of transient ischemic attack (TIA), and cerebral infarction without residual deficits; E03.9 Hypothyroidism, unspecified
CPT/HCPCS: 36415; 36600; 51702; 71045; 80048; 80053; 82805; 83735; 83880; 84443; 84484; 85025; 85378; 87426; 93005; 93306; 94640; 94664; 96372; 96374; 96375; 99285; J1644; J1940; J2930; J7512; J7614; J7644

== ENCOUNTER 2023-07-20 19:35 | Inpatient (IN) | payer OTHER, SELFPAY ==
[2023-07-20 19:37] VITALS: BP 109/54; PULSE 109; RESP 18; TEMP 36.9; O2SAT 78; BMI 23.0
--- NOTE | 2023-07-20 19:44 | XRR_ITS ---
PROCEDURE INFORMATION: Exam: XR Chest Exam date and time: 07/20/2023 7:53 PM Age: 73 years old Clinical indication: Other: AMS; Additional info: Altered mental status TECHNIQUE: Imaging protocol: Radiologic exam of the chest. Views: 1 view. COMPARISON: CR XR chest 1V portable [id number] 07/14/2023 3:07 PM FINDINGS: Lungs: Lungs are clear bilaterally. Pleural spaces: No pleural effusion. No pneumothorax. Heart/Mediastinum: Stable moderate enlargement of the cardiac silhouette. Mediastinal contours are unremarkable. Vasculature: Stable vascular calcifications in the aorta. Bones/joints: Bones are diffusely osteopenic. Degenerative changes in the spine and shoulders. Deformity of the proximal left humerus. Osseous findings are stable. XR/XR chest 1V portable [id number] IMPRESSION: 1. No acute cardiopulmonary process. 2. Incidental/nonacute findings are listed in the report.
--- NOTE | 2023-07-20 19:44 | ECG_ITS ---
[facility] Test Date: 2023-07-20 Pat Name: Nicole Oseguera Department: Room: Gender: Female Teaching Specialists: : 1950 Requested By: Kolby Rod Order Number: [id number] Ludin MD: Kobe Pearson M.D. Measurements Intervals [place] Rate: 122 P: 41 CO: 170 QRS: 12 QRSD: 91 T: 48 QT: 290 QTc: 414 Interpretive Statements SINUS TACHYCARDIA Compared to ECG 07/14/2023 20:39:50 Indeterminate axis no longer present T-wave abnormality no longer present Possible ischemia no longer present Electronically Signed On 07-21-2023 9:47:28 CDT by Kobe Pearson M.D. [id number]
--- NOTE | 2023-07-20 19:45 | ED_ITS ---
HPI - Altered Mental Status General: Chief Complaint: Weakness Stated Complaint: hypotension/ams Time Seen by Provider: 07/20/23 19:40 History of Present Illness: Patient presents to the ER for altered mental status and hypotension. At the care home today patient was more confused than normal and late went to check her blood pressure with a blood pressure cuff just said low. EMS gave her some normal saline on route which improved her blood pressure but her mental status has not improved. Patient has a history of COPD and normally is on 3 L of oxygen at baseline EMS said they had to bump her up to 6 L to keep her saturation well. Patient does have rhonchi and cough. Patient was just discharged from this facility a couple days ago with a diagnosis of COPD CHF and chronic respiratory failure with hypoxia. Review of Systems General: Reports: ROS unobtainable due to mental status PFSH ED PFSH: Medical History Adult onset hypothyroidism Age-related osteoporosis without current pathological fracture Anemia, unspecified Arteriopathy, intracranial, associated with hemoglobinopathy, remote, resolved 1984 in [place] Chronic obstructive pulmonary disease, unspecified Chronic osteoarthritis Her medical issues are stable, and we will continue her current present management. Chronic respiratory failure with hypoxia Congestive heart failure Contracture, left foot Dependent on walker for ambulation Environmental and seasonal allergies Essential (primary) hypertension Gastro-esophageal reflux disease without esophagitis Hemiplegia, unspecified affecting left nondominant side Lives in assisted living facility Myofascial pain syndrome Nocturnal oxygen desaturation On supplemental oxygen therapy Restrictive lung mechanics due to neuromuscular disease Stroke Urinary incontinence due to immobility Vitamin D deficiency Surgical History History of arteriovenous malformation (AVM) 1984 History of fracture of clavicle History of left hip replacement History of shoulder surgery History of total hysterectomy with bilateral salpingo-oophorectomy (BSO) Family History Mother Cancer Liver Other Hypertension Hypothyroid Social History Smoking and tobacco status: former smoker Quit status (tobacco): has quit using tobacco Year quit tobacco: 2013 Former quit date comment: 1 ppd X 43 years Lives independently: No Housing: Assisted Living Facility Current gender identity: Female Physical Exam Const: COMMON NORMALS: no acute distress, alert and well nourished; negative for patient oriented x3 and limitations (Altered mental status) HENMT: COMMON NORMALS: normocephalic, atraumatic, hearing grossly normal bilaterally, external ears normal, Normal external nose present and moist oral mucous membranes HEAD & SCALP: normocephalic and atraumatic NOSE: Normal external nose present EXTERNAL EAR: Yes external ears normal Neck/C-Spine: COMMON NORMALS: full ROM, no lymphadenopathy, supple, no meningeal signs and no JVD Chest: COMMONS NORMALS: normal inspection of the chest and normal palpation of entire chest wall Resp: COMMON NORMALS: normal respiratory effort, No retractions and No use of accessory muscles; negative for clear to auscultation bilaterally (Rhonchi bilaterally) AUSCULTATION: not clear to auscultation bilaterally (Rhonchi bilaterally) Cardio: COMMON NORMALS: no JVD, regular rate, regular rhythm (Tachycardic), S1 normal heart sound present, S2 normal heart sound present, No gallops present (Cardio), No clicks present (Cardio), No murmurs present (Cardio) and No rub (Cardio) RATE: regular rate RHYTHM: regular rhythm (Tachycardic) HEART SOUNDS: S1 normal heart sound present and S2 normal heart sound present GI: COMMON NORMALS: Normal to inspection, nondistended, normoactive bowel sounds present, Soft to palpation, non-tender, No hepatosplenomegaly present and no masses PALPATION: Yes Soft to palpation and Yes No hepatosplenomegaly present : COMMON NORMALS: Yes no CVA tenderness BLADDER/KIDNEY EXAM: Yes no CVA tenderness Back/Pelvis: COMMON NORMALS: no CVA tenderness Neuro: COMMON NORMALS: negative for patient oriented x3 SENSORIUM/ORIENTATION: Yes alert MENINGEAL SIGNS: Yes no meningeal signs Course Vital Signs: Vital signs: Vital Signs Temperature 98.5 F 07/20/23 19:37 Pulse Rate 109 H 07/20/23 19:37 Respiratory Rate 18 07/20/23 19:37 Blood Pressure 109/54 07/20/23 19:37 Pulse Oximetry 78 L 07/20/23 19:37 Oxygen Delivery Me thod Room Air 07/20/23 19:37 MDM - Altered Mental Status Medical Decision Making Presented with altered mental status and hypotension. Blood pressure was consistently running in the 70s over 40s with O2 sat on 4 to 6 L in the 88 to 92% range. Physical exam was performed work-up was obtained the only lab was significantly more abnormal was patient's urinary tract infection. Patient had significant white cells being 15-25 white cells 1+ leukocyte Estrace with 0 squamous cells. Other than that her creatinine had raised from approximately 1.4-2.4. The patient was placed on Lasix at her last visit due to a BNP of approximately 24,000 and now it is down to 4000. Dr. Dominguez was consulted who agreed to place the patient in patient admission for altered mental status and urinary tract infection. Medical Records I reviewed the patient's medical records. Lab Data I reviewed the patient's lab results. 07/20/23 19:58 07/20/23 19:58 Radiology Impressions Chest X-Ray 07/20/23 19:44 IMPRESSION: 1. No acute cardiopulmonary process. 2. Incidental/nonacute findings are listed in the report. Laboratory Results WBC 11.01 10^3/uL (3.29-11.43) 07/20/23 19:58 RBC 3.84 10^6/uL (3.85-5.65) L 07/20/23 19:58 Hgb 9.50 g/dL (11.27-16.99) L 07/20/23 19:58 Hct 32.0 % (36-47) L 07/20/23 19:58 MCV 83.3 fl (85-98) L 07/20/23 19:58 MCH 24.7 pg (27-33) L 07/20/23 19:58 MCHC 29.7 g/dL (30-55) L 07/20/23 19:58 RDW 17.0 % (12.1-15.1) H 07/20/23 19:58 Plt Count 337 10^3/cmm (157-399) 07/20/23 19:58 MPV 9.9 fL (7.4-10.4) 07/20/23 19:58 Neut % (Auto) 62.7 % 07/20/23 19:58 Lymph % (Auto) 23.9 % 07/20/23 19:58 [place] % (Auto) 9.3 % 07/20/23 19:58 Eos % (Auto) 2.9 % 07/20/23 19:58 Baso % (Auto) 0.5 % 07/20/23 19:58 Neut # (Auto) 6.90 10^3/uL (1.8-7.7) 07/20/23 19:58 Lymph # (Auto) 2.6 10^3/uL (0.8-4.8) 07/20/23 19:58 [place] # (Auto) 1.0 10^3/uL (0.2-0.9) H 07/20/23 19:58 Eos # (Auto) 0.3 10^3/uL (0.0-0.8) 07/20/23 19:58 Baso # (Auto) 0.1 10^3/uL (0.0-0.1) 07/20/23 19:58 Nucleated RBC % (auto) 0 % 07/20/23 19:58 Nucleated RBCs # 0.0 /100WBC 07/20/23 19:58 Specimen Type Arterial 07/20/23 19:47 Sample Site Radial, right 07/20/23 19:47 ABG pH 7.37 (7.35-7.45) 07/20/23 19:47 ABG pCO2 44.4 mmHg (35-45) 07/20/23 19:47 ABG pO2 69.5 mmHg (80.0-100.0) L 07/20/23 19:47 ABG HCO3 25.7 mmol/L (22-26) 07/20/23 19:47 ABG O2 Saturation 93.3 07/20/23 19:47 ABG Base Excess 0.2 mmol/L (-2.0-2.0) 07/20/23 19:47 Bryce Test Pos 07/20/23 19:47 A-a O2 Gradient 3.3 mmHg (5-10) L 07/20/23 19:47 Hematocrit 29.8 % (37-47) L 07/20/23 19:47 Hgb O2 Saturation 90.7 % (95-100) L 07/20/23 19:47 Carboxyhemoglobin 1.9 %THgb (0.4-20.1) 07/20/23 19:47 Methemoglobin 0.9 % (0.4-1.5) 07/20/23 19:47 Total Hemoglobin 9.7 g/dL (12-16) L 07/20/23 19:47 Sodium 134.0 mmol/L (131-143) 07/20/23 19:47 Potassium 4.7 mmol/L (3.5-5.0) 07/20/23 19:47 Glucose 110.0 mg/dL (70-115) 07/20/23 19:47 Ionized Calcium 1.4 mmol/L (1.1-1.4) 07/20/23 19:47 O2 Delivery Device Nc 07/20/23 19:47 Librarian Special Library ID [email or web address] 07/20/23 19:47 Sodium 134 mmol/L (136-145) L 07/20/23 19:58 Potassium 5.1 mmol/L (3.5-5.1) 07/20/23 19:58 Chloride 97 mmol/L (98-107) L 07/20/23 19:58 Carbon Dioxide 25 mmol/L (22-29) 07/20/23 19:58 Anion Gap 17.1 (5-19) 07/20/23 19:58 BUN 42 mg/dL (8-23) H 07/20/23 19:58 Creatinine 2.4 mg/dL (0.5-0.9) H 07/20/23 19:58 GFR Calculation Not Reportable 07/20/23 19:58 Glucose 99 mg/dL (65-115) 07/20/23 19:58 Calculated Osmolality 289 mOsm/kg (285-295) 07/20/23 19:58 Calcium 10.4 mg/dL (8.5-10.5) 07/20/23 19:58 Magnesium 2.1 mg/dL (1.7-2.3) 07/20/23 19:58 Total Bilirubin 0.3 mg/dL (0.15-1.2) 07/20/23 19:58 AST 24 U/L (0-32) 07/20/23 19:58 ALT 29 U/L (0-33) 07/20/23 19:58 Alkaline Phosphatase 93 U/L (35-105) 07/20/23 19:58 NT-Pro-B Natriuret Pep 5767 pg/mL (0-125) H 07/20/23 19:58 Total Protein 6.9 g/dL (6.6-8.7) 07/20/23 19:58 Albumin 4.1 g/dL (3.5-5.2) 07/20/23 19:58 Globulin 2.8 g/dL (1.3-4.6) 07/20/23 19:58 Urine Color Dark yellow (Yellow) 07/20/23 20:24 Urine Appearance Hazy (CLEAR) A 07/20/23 20:24 Urine pH 5 (5-7) 07/20/23 20:24 Ur Specific [place] 1.015 (1.005-1.030) 07/20/23 20:24 Urine Protein 1+ (Negative) H 07/20/23 20:24 Urine Glucose (UA) Norm (Normal) 07/20/23 20:24 Urine Ketones Negative (Negative) 07/20/23 20:24 Urine Blood Neg (Negative) 07/20/23 20:24 Urine Nitrate Negative (Negative) 07/20/23 20:24 Urine Bilirubin 1+ (Negative) H 07/20/23 20:24 Urine Urobilinogen Neg mg/dL (Negative) 07/20/23 20:24 Ur Leukocyte Esterase 1+ (Negative) H 07/20/23 20:24 Urine RBC None /hpf (0-2) 07/20/23 20:24 Urine WBC 15-25 /hpf (0-5) H 07/20/23 20:24 Ur Squamous Epith Cells None /hpf (0-5) 07/20/23 20:24 Amorphous Sediment Not Reportable 07/20/23 20:24 Urine Bacteria 4+ /hpf (NONE) H 07/20/23 20:24 Hyaline Casts 0-4 /lpf H 07/20/23 20:24 EKG Data EKG 1: I personally reviewed and interpreted this EKG as follows: EKG interpretation date: 07/20/23 EKG interpretation time: 19:50 Prior EKG tracings: not available for review Interpretation: EKG showed ventricular rate 122 bpm, AK interval 170, QRS duration 91, QTc of 362, sinus tachycardia, no ST-T wave changes Discharge Plan Discharge Patient Disposition: Admitted As Inpatient Clinical Impression: Altered mental status, Urinary tract infection, Acute hypotension Condition: Stable Coding Level of Care Code ED Frameman for Chg Lynne
[2023-07-20 20:08] LABS: ABG PCO2 44.4 mmHg (35-45); ABG PH Result 7.37 (7.35-7.45); Alveolar-Arterial Oxygen Gradi 3.3 mmHg (5-10); Arterial Blood Gas Hematocrit 29.8 % (37-47); Base Excess ABG 0.2 mmol/L (-2.0-2.0); Blood Gas Allen Test Pos; Blood Gas Sample Site Radial, right; Blood Gas Sample Type Arterial; Carboxyhemoglobin 1.9 %THgb (0.4-20.1); HCO3 ABG 25.7 mmol/L (22-26); HGB O2 Sat 90.7 % (95-100); Ionized Calcium Level - ABG 1.4 mmol/L (1.1-1.4); Methemoglobin 0.9 % (0.4-1.5); Oxygen Device NC; Oxygen Saturation ABG 93.3; PO2 ABG 69.5 mmHg (80.0-100.0); Potassium Level - ABG 4.7 mmol/L (3.5-5.0); Total Hemoglobin 9.7 g/dL (12-16)
[2023-07-20 20:12] LABS: Basophils # 0.1 10^3/uL (0.0-0.1); Basophils % 0.5 %; Eosinophils # 0.3 10^3/uL (0.0-0.8); Eosinophils % 2.9 %; Lymphocytes # 2.6 10^3/uL (0.8-4.8); Lymphocytes % 23.9 %; Mean Corpuscular HGB Conc 29.7 g/dL (30-55); Mean Corpuscular Hemoglobin 24.7 pg (27-33); Mean Corpuscular Volume 83.3 fl (85-98); Mean Platelet Volume 9.9 fL (7.4-10.4); Monocytes % 9.3 %; Neutrophils % 62.7 %; Nucleated Red Blood Cells % 0 %; Platelet Count 337 10^3/cmm (157-399); Red Blood Count 3.84 10^6/uL (3.85-5.65); White Blood Count 11.01 10^3/uL (3.29-11.43)
[2023-07-20 20:39] LABS: Add Urine Microscopic? YES; Bilirubin Urine 1+ (Negative); Blood Urine Neg (Negative); Glucose Urine UA Norm (Normal); Ketones Urine Negative (Negative); Leukocyte Esterase Urine 1+ (Negative); Nitrate Urine Negative (Negative); Protein Urine 1+ (Negative); Specific Gravity, Urine 1.015 (1.005-1.030); Urine Appearance Hazy (CLEAR); Urine Color Dark Yellow (Yellow); Urobilinogen Urine Neg (Negative); pH Urine 5 (5-7)
[2023-07-20 20:40] LABS: Add Urine Culture? Yes; Bacteria Urine 4+ /hpf; Hyaline Casts Urine 0-4 /lpf; WBC Urine 15-25 /hpf (0-5)
[2023-07-20 20:50] VITALS: BP 95/61; PULSE 98; RESP 24; O2SAT 98
[2023-07-20 20:51] LABS: Alanine Aminotransferase 29 U/L (0-33); Albumin Level 4.1 g/dL (3.5-5.2); Alkaline Phosphatase 93 U/L (35-105); Anion Gap 17.1 (5-19); Aspartate Amino Transferase 24 U/L (0-32); Blood Urea Nitrogen 42 mg/dL (8-23); Calcium 10.4 mg/dL (8.5-10.5); Carbon Dioxide 25 mmol/L (22-29); Chloride 97 mmol/L (98-107); Globulin 2.8 g/dL (1.3-4.6); Glucose 99 mg/dL (65-115); Magnesium 2.1 mg/dL (1.7-2.3); NT Pro B Type Natriuretic Pept 5767 pg/mL (0-125); Osmolality Calculated 289 mOsm/kg (285-295); Potassium 5.1 mmol/L (3.5-5.1); Sodium 134 mmol/L (136-145); Total Bilirubin 0.3 mg/dL (0.15-1.2); Total Protein 6.9 g/dL (6.6-8.7)
[2023-07-20] MEDS: ciprofloxacin 400 MG/200 ML PREMIX 200 MG IV (21:25)
[2023-07-20 21:50] VITALS: BP 83/51; PULSE 94; RESP 24; O2SAT 97
--- NOTE | 2023-07-20 22:13 | PC.NURSE ---
Spoke with Alka @ [facility]- re: let her know that patient will be admit to med surg. UTI/ iv abx.
--- NOTE | 2023-07-20 22:27 | P.HP_ITS ---
Providers/Chief Complaint Primary Care Provider: OMID Purdy Chief Complaint: hypotension/ams History of Present Illness Nicole Oseguera is a 73 year old female with history of COPD CHF hypothyroidism hypertension GERD hyponatremia chronic respiratory failure on 4 L nasal cannula was sent in from the skilled nursing for altered mental status and hypotension. She was recently admitted to the hospital 1 week ago for CHF exacerbation was found to have BNP of 23,000. As per the ER physician mental status is mildly altered from her baseline, she was saturating 88% on 6 L nasal cannula found to have blood pressure of 80/50. Her creatinine was elevated at 2.4, baseline is 1.7 and BNP of 5700. Review of Systems Narrative: Unable to obtain due to mental status Medications/Allergies Home Medications Medication Instructions Recorded Confirmed Last Taken Type carbamazepine 200 mg tablet 200 mg PO BID@08,199912/02/19 07/14/23 05/16/21 History pantoprazole 40 mg tablet,delayed 40 mg PO DAILY@0800 12/02/19 07/14/23 05/16/21 History release cyclobenzaprine 10 mg tablet 10 mg PO TID PRN muscle spasm #90 03/06/21 07/14/23 05/16/21 Rx tabs Milk of Magnesia 30 ml PO Q4H PRN UNKNOWN 05/16/21 07/14/23 Unknown History cetirizine 10 mg tablet (Zyrtec) 10 mg PO DAILY@0800 05/16/21 07/14/23 05/16/21 History cholecalciferol (vitamin D3) 125 250 mcg PO DAILY@0800 05/16/21 07/14/23 05/16/21 History mcg (5,000 unit) capsule duloxetine 20 mg capsule,delayed 20 mg PO DAILY #90 caps 07/18/21 07/14/23 Unknown Rx release calcium 600 mg-D3 800 unit-mag11 1 tab PO BID@ #60 tabs 01/16/22 07/14/23 Unknown Rx 50 uo-xpsn-rznomw-etta-s.borat tablet (Caltrate 600-D Plus Minerals) Oxygen concentrator and protable #1 ea 01/29/22 07/14/23 Unknown Rx NC2L levothyroxine 75 mcg tablet 75 mcg PO DAILY 01/29/22 07/14/23 Unknown History fluticasone 500 mcg-salmeterol 50 1 inh inhalation BID #60 ea 02/26/22 07/14/23 Unknown Rx mcg/dose blistr powdr for inhalation (Advair Diskus) Oxygen concentrator with home fill #1 ea 03/05/22 07/14/23 Unknown Rx 2 refillable bottles Oxygen tank cooper for wheelchair #1 ea 03/05/22 07/14/23 Unknown Rx fluticasone propionate 50 1 spray intranasal DAILY #16 grams 04/11/22 07/14/23 Unknown Rx mcg/actuation nasal spray,suspension (Flonase Allergy Relief) oxygen #1 ea 04/11/22 07/14/23 Unknown Rx loperamide 2 mg capsule 8 mg PO DAILY PRN Diarrhea 05/07/22 07/14/23 Unknown History tiotropium bromide 2.5 2 inh inhalation QAM 11/27/22 07/14/23 Unknown History mcg/actuation mist for inhalation (Spiriva Respimat) levalbuterol tartrate 45 2 inh inhalation Q6H #15 grams 01/26/23 07/14/23 Unknown Rx mcg/actuation aerosol inhaler (Xopenex HFA) acetaminophen 325 mg tablet 325 - 650 mg PO Q6H PRN Pain 07/14/23 07/14/23 Unknown History calcium carbonate 200 mg calcium 200 mg PO QID gerd 07/14/23 07/14/23 Unknown History (500 mg) chewable tablet (Calcium Antacid) chlorhexidine gluconate 0.12 % See Rx Instructions .Route .COMPLEX 07/14/23 07/14/23 Unknown History mouthwash guaifenesin 200 mg tablet 200 mg PO Q4H PRN Congestion 07/14/23 07/14/23 Unknown History guaifenesin 400 mg tablet (Mucus See Rx Instructions .Route .COMPLEX 07/14/23 07/14/23 Unknown History Relief) hydrocodone 7.5 mg-acetaminophen 1 tab PO Q46H PRN Pain 07/14/23 07/14/23 U nknown History 325 mg tablet ipratropium bromide 17 1 puff inhalation QID 07/14/23 07/14/23 Unknown History mcg/actuation HFA aerosol inhaler (Atrovent HFA) lidocaine 5 % topical patch 1 patch topical DAILY 07/14/23 07/14/23 Unknown History mptzgxyu-mmvd-kshot acid 240 1 tab PO DAILY 07/14/23 07/14/23 Unknown History mcg-vit K 120 gsg-hkwpct-xohg 293 tablet (Alive Women's 50 Plus (fruit-veg blend)) tramadol 50 mg tablet 50 mg PO TID PRN Pain 07/14/23 07/14/23 Unknown History amlodipine 10 mg tablet 10 mg PO DAILY #60 tabs 07/15/23 Unknown Rx furosemide 20 mg tablet 20 mg PO DAILY@0800 #60 tabs 07/15/23 Unknown Rx metoprolol tartrate 25 mg tablet 25 mg PO BID #60 tabs 07/15/23 Unknown Rx potassium chloride 20 mEq 10 meq PO QAM #60 tabs 07/15/23 Unknown Rx tablet,extended release Allergies Allergy/AdvReac Type Severity Reaction Status Date / Time codeine Allergy Unknown Unknown Verified 12/17/22 10:37 morphine Allergy Unknown Unknown Verified 12/17/22 10:37 lisinopril AdvReac Intermediate Cough Verified 12/17/22 10:37 PFSH Acute PFSH: Medical History Adult onset hypothyroidism Age-related osteoporosis without current pathological fracture Anemia, unspecified Arteriopathy, intracranial, associated with hemoglobinopathy, remote, resolved 1984 in [place] Chronic obstructive pulmonary disease, unspecified Chronic osteoarthritis Her medical issues are stable, and we will continue her current present management. Chronic respiratory failure with hypoxia Congestive heart failure Contracture, left foot Dependent on walker for ambulation Environmental and seasonal allergies Essential (primary) hypertension Gastro-esophageal reflux disease without esophagitis Hemiplegia, unspecified affecting left nondominant side Lives in assisted living facility Myofascial pain syndrome Nocturnal oxygen desaturation On supplemental oxygen therapy Restrictive lung mechanics due to neuromuscular disease Stroke Urinary incontinence due to immobility Vitamin D deficiency Surgical History History of arteriovenous malformation (AVM) 1985 History of fracture of clavicle History of left hip replacement History of shoulder surgery History of total hysterectomy with bilateral salpingo-oophorectomy (BSO) Family History Mother Cancer Liver Other Hypertension Hypothyroid Social History Smoking and tobacco status: former smoker Quit status (tobacco): has quit using tobacco Year quit tobacco: 2013 Former quit date comment: 1 ppd X 43 years Lives independently: No Housing: Assisted Living Facility Current gender identity: Female Vitals/I&O/Wt Last Vital Signs Temp 98.5 F 07/20/23 19:37 Pulse 109 H 07/20/23 19:37 Resp 18 07/20/23 19:37 BP 109/54 07/20/23 19:37 Pulse Ox 78 L 07/20/23 19:37 O2 Del Method Room Air 07/20/23 19:37 Weight last 48 hrs Weight 58.967 kg Physical Exam Narrative: She is confused awake oriented to self, not in acute distress Chest clear to auscultation bilaterally Cardiovascular normal heart sounds regular rhythm Abdomen soft nontender nondistended normal bowel sounds Extremities no pedal edema noted Data 07/20/23 19:58 07/20/23 19:58 Micro: Microbiology 07/20/23 21:12 Blood Culture - Preliminary Blood SPECIMEN COLLECTED 07/20/23 21:12 Blood Culture - Preliminary Blood SPECIMEN COLLECTED CXR: Radiologist's impression: No acute cardiopulmonary findings EKG 1: My Interpretation: Sinus tachycardia rate 122 bpm, no acute ST-T changes A&P Assessment and plan (1) Altered mental status: Qualifiers: Altered mental status type: disorientation Qualified Code(s): R41.0 - Disorientation, unspecified (2) Urinary tract infection: Qualifiers: Hematuria presence: without hematuria Urinary tract infection type: acute cystitis Qualified Code(s): N30.00 - Acute cystitis without hematuria (3) Acute hypotension: (4) Acute renal failure superimposed on chronic kidney disease: Plan 73-year-old female with history of COPD CHF on 4 L nasal cannula was sent in from skilled nursing for altered mental status and hypotension and found to have acute renal failure likely secondary to UTI and dehydration. We will start IV fluids normal saline at 100 mL/h In view of resident at skilled nursing, will start IV Zosyn 2.5 mg every 8 hours Continue supplemental oxygen for now to keep saturation 90 to 92% Resume home medications IV Pepcid 20 mg every 12 for stress ulcer prophylaxis Subcutaneous Lovenox 30 mg daily for DVT prophylaxis She is full code for now Attestations Medical Necessity Statement*: She needs continued hospitalization for more than 2 midnights for management of altered mental status dehydration acute renal failure and UTI with IV fluids and antibiotics Time Spent in Patient Care: 30 minutes Coding Level of Care Code Acute Code for Chg Fwd Diagnoses Altered mental status R41.0 Altered mental status type: disorientation Urinary tract infection N30.00 Hematuria presence: without hematuria Urinary tract infection type: acute cystitis Acute hypotension I95.9 Acute renal failure superimposed on chronic kidney disease N17.9; N18.9 Time Spent (min) 30
[2023-07-20 22:49] LABS: SARS Covid-2 Antigen negative (Negative)
[2023-07-20 23:21] VITALS: PULSE 78; RESP 22; O2SAT 96
--- NOTE | 2023-07-20 23:37 | PC.PHAR ---
Multiple overlap scheduled inhaled medications, RBTO ok to continue with inhaler sub policy to continue duoneb + budesonide Dr. LAWSON
[2023-07-21] VITALS (10 sets, daily range): BP systolic 83–104; BP diastolic 52–59; PULSE 87–127; RESP 14–35; TEMP 36.4–36.9; O2SAT 90–99
[2023-07-21] MEDS: sodium chloride 0.9% 1,000 ML 100 ML IV (01:28)
[2023-07-21] MEDS: piperacillin-tazobactam 3.375 GM in sodium chloride 0.9% (plus) 50 ML IV ×2 (01:28→11:45)
[2023-07-21] MEDS: enoxaparin 30 mg/0.3 mL Syringe SUBCUT (01:28)
[2023-07-21] MEDS: famotidine 20 mg/2 mL INJ IVP ×2 (02:45→13:57)
[2023-07-21 05:45] LABS: Basophils % 0.6 %; Eosinophils # 0.4 10^3/uL (0.0-0.8); Eosinophils % 5.5 %; Hematocrit 26.4 % (36-47); Lymphocytes # 1.2 10^3/uL (0.8-4.8); Lymphocytes % 18.8 %; Mean Corpuscular HGB Conc 29.5 g/dL (30-55); Mean Corpuscular Hemoglobin 24.7 pg (27-33); Mean Corpuscular Volume 83.5 fl (85-98); Mean Platelet Volume 9.2 fL (7.4-10.4); Monocytes # 0.5 10^3/uL (0.2-0.9); Monocytes % 8.5 %; Neutrophils # 4.21 10^3/uL (1.8-7.7); Neutrophils % 66.1 %; Nucleated Red Blood Cells % 0 %; Platelet Count 220 10^3/cmm (157-399); Red Blood Count 3.16 10^6/uL (3.85-5.65); Red Cell Distribution Width 16.6 % (12.1-15.1); White Blood Count 6.37 10^3/uL (3.29-11.43)
[2023-07-21 06:03] LABS: Lactic Sepsis W/Reflex 0.5 mmol/L (0.5-2.2)
[2023-07-21 06:06] LABS: Alanine Aminotransferase 26 U/L (0-33); Albumin Level 3.5 g/dL (3.5-5.2); Alkaline Phosphatase 78 U/L (35-105); Anion Gap 10.4 (5-19); Aspartate Amino Transferase 22 U/L (0-32); Blood Urea Nitrogen 39 mg/dL (8-23); Calcium 9.5 mg/dL (8.5-10.5); Carbon Dioxide 28 mmol/L (22-29); Chloride 100 mmol/L (98-107); Globulin 2.1 g/dL (1.3-4.6); Glucose 78 mg/dL (65-115); Magnesium 1.9 mg/dL (1.7-2.3); Osmolality Calculated 286 mOsm/kg (285-295); Potassium 4.4 mmol/L (3.5-5.1); Sodium 134 mmol/L (136-145); Total Bilirubin 0.2 mg/dL (0.15-1.2); Total Protein 5.6 g/dL (6.6-8.7)
--- NOTE | 2023-07-21 08:27 | PC.NURSE ---
Pts BP this am104/59. Dr. Rivera notified and he states to hold am Norvasc and metoprolol. Both held this am
[2023-07-21] MEDS: budesonide 0.5 mg/2 mL Neb INHALATION ×2 (08:29→20:00)
[2023-07-21] MEDS: ipratropium-albuterol 3 mL Neb INHALATION ×4 (08:29→20:00)
[2023-07-21] MEDS: fluticasone nasal spray 16gm Btl 1 SPRAY INTRANASAL (08:33)
[2023-07-21] MEDS: FUROsemide 20 mg Tablet PO (08:34)
[2023-07-21] MEDS: levothyroxine 75 mcg Tablet PO (08:34)
[2023-07-21] MEDS: potassium chloride ER 10 mEq Tablet PO (08:34)
[2023-07-21] MEDS: carBAMazepine 200 mg Tablet PO ×2 (08:42→20:06)
[2023-07-21] MEDS: duloxetine 20 mg Capsule PO (08:42)
--- NOTE | 2023-07-21 08:50 | PC.NURSE ---
Dr. Rivera at bedside. Requests fluids be lowered to 75ml/hr
--- NOTE | 2023-07-21 10:10 | PM.PN ---
Subjective Subjective: Patient is not confused General pleasant and cooperative Family at the bedside Patient is unsure for review Urinalysis showed UTI Drop in hemoglobin could be dilutional, Currently getting IV fluids No need to give diuretics Vitals/I&O/Wt Last Vital Signs Temp 98.5 F 07/21/23 07:23 Pulse 91 07/21/23 08:32 Resp 20 H 07/21/23 08:28 BP 104/59 07/21/23 07:23 Pulse Ox 96 07/21/23 08:28 O2 Del Method Nasal Cannula 07/21/23 08:28 O2 Flow Rate 4 07/21/23 08:28 07/20/23 07/21/23 07/21/23 22:59 06:59 14:59 Intake Total 250 / 250 868.333 / 868.333 Balance 250 / 250 868.333 / 868.333 Weight last 48 hrs Weight 58.967 kg Physical Exam Narrative: Patient is awake and alert Oriented to time place and person GCS 15 Left-sided stroke related chronic changes Able to answer my questions appropriately S1, S2 Lungs are clear Lower extremity no edema Kyphosis Currently on 3 to 4 L of nasal cannula Data 07/21/23 05:37 07/21/23 05:37 Micro: Microbiology 07/20/23 21:12 Blood Culture - Preliminary Blood SPECIMEN COLLECTED 07/20/23 21:12 Blood Culture - Preliminary Blood SPECIMEN COLLECTED A&P Assessment and plan (1) Acute renal failure superimposed on chronic kidney disease: (2) Altered mental status: Qualifiers: Altered mental status type: disorientation Qualified Code(s): R41.0 - Disorientation, unspecified (3) Urinary tract infection: Qualifiers: Hematuria presence: without hematuria Urinary tract infection type: acute cystitis Qualified Code(s): N30.00 - Acute cystitis without hematuria (4) Acute hypotension: Plan Metabolic encephalopathy related to UTI: Resolved Continue antibiotic Acute on chronic kidney disease related dehydration: Improving with IV fluid hydration Hypertension with dehydration Continue IV fluids at 75 mill per hour Hold Lasix and antihypertensive regimen We will follow-up with urine culture Patient is from senior living Underlying undiagnosed case of dementia? Recent diagnosis of CHF exacerbation and COPD, uses 4 L of oxygen at baseline She is full code #DVT prophylaxis on board I will discharge her tomorrow if she remains stable Attestations Medical Necessity Statement*: Possible discharge tomorrow Diagnoses Acute renal failure superimposed on chronic kidney disease N17.9; N18.9 Altered mental status R41.0 Altered mental status type: disorientation Urinary tract infection N30.00 Hematuria presence: without hematuria Urinary tract infection type: acute cystitis Acute hypotension I95.9
--- NOTE | 2023-07-21 14:50 | PC.PHAR ---
pt is from [facility]- medications entered are from the pts bailey and tar
--- NOTE | 2023-07-21 17:33 | PC.NURSE ---
per dr. puga, hold lasix and antihypertensives tonight.
[2023-07-21] MEDS: sodium chloride 0.9% 1,000 ML 75 ML IV (17:54)
[2023-07-22] VITALS (7 sets, daily range): BP systolic 91–98; BP diastolic 54–63; PULSE 78–99; RESP 13–20; TEMP 36.6–36.9; O2SAT 88–97
[2023-07-22] MEDS: piperacillin-tazobactam 3.375 GM in sodium chloride 0.9% (plus) 50 ML IV (01:06)
[2023-07-22] MEDS: enoxaparin 30 mg/0.3 mL Syringe SUBCUT (01:06)
[2023-07-22] MEDS: famotidine 20 mg/2 mL INJ IVP (02:58)
[2023-07-22 05:59] LABS: Basophils # 0.1 10^3/uL (0.0-0.1); Basophils % 1.1 %; Eosinophils # 0.5 10^3/uL (0.0-0.8); Eosinophils % 7.7 %; Hematocrit 28.3 % (36-47); Lymphocytes # 1.4 10^3/uL (0.8-4.8); Lymphocytes % 22.7 %; Mean Corpuscular HGB Conc 28.6 g/dL (30-55); Mean Corpuscular Hemoglobin 24.9 pg (27-33); Mean Corpuscular Volume 87.1 fl (85-98); Mean Platelet Volume 9.8 fL (7.4-10.4); Monocytes # 0.6 10^3/uL (0.2-0.9); Neutrophils % 58.8 %; Nucleated Red Blood Cells % 0 %; Platelet Count 233 10^3/cmm (157-399); Red Blood Count 3.25 10^6/uL (3.85-5.65); White Blood Count 6.12 10^3/uL (3.29-11.43)
[2023-07-22 06:20] LABS: Anion Gap 11.9 (5-19); Blood Urea Nitrogen 28 mg/dL (8-23); Calcium 8.4 mg/dL (8.5-10.5); Carbon Dioxide 25 mmol/L (22-29); Chloride 104 mmol/L (98-107); Glucose 84 mg/dL (65-115); Osmolality Calculated 289 mOsm/kg (285-295); Potassium 3.9 mmol/L (3.5-5.1); Sodium 137 mmol/L (136-145)
[2023-07-22] MEDS: budesonide 0.5 mg/2 mL Neb INHALATION (08:26)
[2023-07-22] MEDS: ipratropium-albuterol 3 mL Neb INHALATION ×2 (08:27→12:18)
[2023-07-22] MEDS: levothyroxine 75 mcg Tablet PO (08:47)
[2023-07-22] MEDS: potassium chloride ER 10 mEq Tablet PO (08:47)
[2023-07-22] MEDS: carBAMazepine 200 mg Tablet PO (08:48)
[2023-07-22] MEDS: duloxetine 20 mg Capsule PO (08:48)
[2023-07-22] MEDS: fluticasone nasal spray 16gm Btl 1 SPRAY INTRANASAL (08:51)
--- NOTE | 2023-07-22 09:03 | PM.DCS ---
Discharge Providers Date of Admission: 07/20/23 23:07 Date of Discharge: July 22, 2023 Attending Provider at Admission: Janeth Dominguez MD Attending Provider at Discharge: Liang Rivera MD Primary Care Provider: OMID Purdy Diagnoses at Discharge Discharge Diagnosis (1) Acute renal failure superimposed on chronic kidney disease: Status: Acute (2) Altered mental status: Status: Acute Qualifiers: Altered mental status type: disorientation Qualified Code(s): R41.0 - Disorientation, unspecified (3) Urinary tract infection: Status: Acute Qualifiers: Hematuria presence: without hematuria Urinary tract infection type: acute cystitis Qualified Code(s): N30.00 - Acute cystitis without hematuria (4) Acute hypotension: Status: Acute Reason for Visit Reason for Visit: hypotension/ams Hospital Course Hospital Course 73-year-old female who was recently discharged from the hospital after management of CHF exacerbation returned with metabolic encephalopathy related to UTI, urine culture showing gram-negative chase, she remained afebrile, on this visit her pressure was low her Lasix and metoprolol was held, she was given IV fluid hydration which improved her blood pressure, her metabolic encephalopathy improved by the time I saw her, it only took 6 to 8 hours to improve her mentation, she does have left-sided chronic weakness from previous stroke, wheelchair-bound, [facility] resident, family meeting conducted, at the time of discharge patient received 7-day regimen with levofloxacin, creatinine has improved with use of diuretics, her low blood pressure is most likely related to polypharmacy, I would recommend holding diuretics and metoprolol for at least 4 to 5 days. Physical Exam Narrative: Signs of dehydration improving Lower extremity with wrinkling, no edema at all Currently on 3 to 4 L nasal cannula which is at baseline Awake and alert Able to answer questions in a left-sided upper extremity contracture, lower extremity strength is weak Able to follow commands S1, S2 Discharge Data Studies Completed and Pending Completed Studies During Hospitalization Category Date Time Status XR chest 1V portable [id number] Stat Exams 07/20/23 19:44 Completed Pending at discharge Category Date Time Status Blood Culture Stat Lab 07/20/23 21:12 Results Occult Blood Stool [Immunochemical Fecal OCB] Routine Lab 07/21/23 10:14 Uncollected Urine Culture Stat Lab 07/20/23 20:24 Results Radiology Impressions Chest X-Ray 07/20/23 19:44 IMPRESSION: 1. No acute cardiopulmonary process. 2. Incidental/nonacute findings are listed in the report. Laboratory Results WBC 6.12 10^3/uL (3.29-11.43) 07/22/23 05:49 RBC 3.25 10^6/uL (3.85-5.65) L 07/22/23 05:49 Hgb 8.10 g/dL (11.27-16.99) L 07/22/23 05:49 Hct 28.3 % (36-47) L 07/22/23 05:49 MCV 87.1 fl (85-98) 07/22/23 05:49 MCH 24.9 pg (27-33) L 07/22/23 05:49 MCHC 28.6 g/dL (30-55) L 07/22/23 05:49 RDW 17.0 % (12.1-15.1) H 07/22/23 05:49 Plt Count 233 10^3/cmm (157-399) 07/22/23 05:49 MPV 9.8 fL (7.4-10.4) 07/22/23 05:49 Neut % (Auto) 58.8 % 07/22/23 05:49 Lymph % (Auto) 22.7 % 07/22/23 05:49 [place] % (Auto) 9.0 % 07/22/23 05:49 Eos % (Auto) 7.7 % 07/22/23 05:49 Baso % (Auto) 1.1 % 07/22/23 05:49 Neut # (Auto) 3.60 10^3/uL (1.8-7.7) 07/22/23 05:49 Lymph # (Auto) 1.4 10^3/uL (0.8-4.8) 07/22/23 05:49 [place] # (Auto) 0.6 10^3/uL (0.2-0.9) 07/22/23 05:49 Eos # (Auto) 0.5 10^3/uL (0.0-0.8) 07/22/23 05:49 Baso # (Auto) 0.1 10^3/uL (0.0-0.1) 07/22/23 05:49 Nucleated RBC % (auto) 0 % 07/22/23 05:49 Nucleated RBCs # 0.0 /100WBC 07/22/23 05:49 Specimen Type Arterial 07/20/23 19:47 Sample Site Radial, right 07/20/23 19:47 ABG pH 7.37 (7.35-7.45) 07/20/23 19:47 ABG pCO2 44.4 mmHg (35-45) 07/20/23 19:47 ABG pO2 69.5 mmHg (80.0-100.0) L 07/20/23 19:47 ABG HCO3 25.7 mmol/L (22-26) 07/20/23 19:47 ABG O2 Saturation 93.3 07/20/23 19:47 ABG Base Excess 0.2 mmol/L (-2.0-2.0) 07/20/23 19:47 Bryce Test Pos 07/20/23 19:47 A-a O2 Gradient 3.3 mmHg (5-10) L 07/20/23 19:47 Hematocrit 29.8 % (37-47) L 07/20/23 19:47 Hgb O2 Saturation 90.7 % (95-100) L 07/20/23 19:47 Carboxyhemoglobin 1.9 %THgb (0.4-20.1) 07/20/23 19:47 Methemoglobin 0.9 % (0.4-1.5) 07/20/23 19:47 Total Hemoglobin 9.7 g/dL (12-16) L 07/20/23 19:47 Sodium 134.0 mmol/L (131-143) 07/20/23 19:47 Potassium 4.7 mmol/L (3.5-5.0) 07/20/23 19:47 Glucose 110.0 mg/dL (70-115) 07/20/23 19:47 Ionized Calcium 1.4 mmol/L (1.1-1.4) 07/20/23 19:47 O2 Delivery Device Nc 07/20/23 19:47 Cover Maker ID [email or web address] 07/20/23 19:47 Sodium 137 mmol/L (136-145) 07/22/23 05:49 Potassium 3.9 mmol/L (3.5-5.1) 07/22/23 05:49 Chloride 104 mmol/L (98-107) 07/22/23 05:49 Carbon Dioxide 25 mmol/L (22-29) 07/22/23 05:49 Anion Gap 11.9 (5-19) 07/22/23 05:49 BUN 28 mg/dL (8-23) H 07/22/23 05:49 Creatinine 1.5 mg/dL (0.5-0.9) H 07/22/23 05:49 GFR Calculation Not Reportable 07/22/23 05:49 Glucose 84 mg/dL (65-115) 07/22/23 05:49 Calculated Osmolality 289 mOsm/kg (285-295) 07/22/23 05:49 Lactic Acid 0.5 mmol/L (0.5-2.2) 07/21/23 05:37 Calcium 8.4 mg/dL (8.5-10.5) L 07/22/23 05:49 Magnesium 1.9 mg/dL (1.7-2.3) 07/21/23 05:37 Total Bilirubin 0.2 mg/dL (0.15-1.2) 07/21/23 05:37 AST 22 U/L (0-32) 07/21/23 05:37 ALT 26 U/L (0-33) 07/21/23 05:37 Alkaline Phosphatase 78 U/L (35-105) 07/21/23 05:37 NT-Pro-B Natriuret Pep 5767 pg/mL (0-125) H 07/20/23 19:58 Total Protein 5.6 g/dL (6.6-8.7) L 07/21/23 05:37 Albumin 3.5 g/dL (3.5-5.2) 07/21/23 05:37 Globulin 2.1 g/dL (1.3-4.6) 07/21/23 05:37 Urine Color Dark yellow (Yellow) 07/20/23 20:24 Urine Appearance Hazy (CLEAR) A 07/20/23 20:24 Urine pH 5 (5-7) 07/20/23 20:24 Ur Specific [place] 1.015 (1.005-1.030) 07/20/23 20:24 Urine Protein 1+ (Negative) H 07/20/23 20:24 Urine Glucose (UA) Norm (Normal) 07/20/23 20:24 Urine Ketones Negative (Negative) 07/20/23 20:24 Urine Blood Neg (Negative) 07/20/23 20:24 Urine Nitrate Negative (Negative) 07/20/23 20:24 Urine Bilirubin 1+ (Negative) H 07/20/23 20:24 Urine Urobilinogen Neg mg/dL (Negative) 07/20/23 20:24 Ur Leukocyte Esterase 1+ (Negative) H 07/20/23 20:24 Urine RBC None /hpf (0-2) 07/20/23 20:24 Urine WBC 15-25 /hpf (0-5) H 07/20/23 20:24 Ur Squamous Epith Cells None /hpf (0-5) 07/20/23 20:24 Amorphous Sediment Not Reportable 07/20/23 20:24 Urine Bacteria 4+ /hpf (NONE) H 07/20/23 20:24 Hyaline Casts 0-4 /lpf H 07/20/23 20:24 SARS-CoV-2 Ag (Rapid) negative (Negative) 07/20/23 22:28 Vitals Last Vital Signs Temp 97.9 F 07/22/23 06:55 Pulse 87 07/22/23 08:00 Resp 16 07/22/23 08:00 BP 91/59 07/22/23 06:55 Pulse Ox 95 07/22/23 08:00 O2 Del Method Nasal Cannula 07/22/23 08:00 O2 Flow Rate 2 07/22/23 08:00 Discharge Plan Discharge Patient Disposition: Xfer SNF Condition: Stable Prescriptions: New cefpodoxime 200 mg tablet 200 mg PO BID Qty: 14 0RF Rx Instructions: must administer with a meal/food Continued carbamazepine 200 mg tablet 200 mg PO BID@0800,1999 pantoprazole 40 mg tablet,delayed release (DR/EC) 40 mg PO DAILY@0800 cyclobenzaprine 10 mg tablet 10 mg PO TID PRN (Reason: muscle spasm) Qty: 90 2RF levothyroxine 75 mcg tablet 75 mcg PO DAILY@06 (DME) Oxygen concentrator and protable NC2L See Rx Instructions .ROUTE .MEDSUPPLY Qty: 1 0RF Rx Instructions: Use 2L NC 24 hours for 99 months loperamide 2 mg capsule 8 mg PO DAILY PRN (Reason: Diarrhea) Spiriva Respimat 2.5 mcg/actuation mist 2 inh inhalation QAM fluticasone propion-salmeterol [Advair Diskus] 500-50 mcg/dose blister with device 1 inh inhalation BID Qty: 60 5RF (DME) Oxygen concentrator with home fill 2 refillable bottles See Rx Instructions .Route .MEDSUPPLY Qty: 1 0RF Rx Instructions: use 24 hours day @2l NC (DME) Oxygen tank cooper for wheelchair See Rx Instructions .Route .MEDSUPPLY Qty: 1 0RF Rx Instructions: As directed (DME) oxygen 2L/NC See Rx Instructions .Route .MEDSUPPLY Qty: 1 0RF Rx Instructions: As directed fluticasone propionate [Flonase Allergy Relief] 50 mcg/actuation spray,suspension 1 spray intranasal DAILY Qty: 16 5RF Rx Instructions: administer into each nostril duloxetine 20 mg capsule,delayed release(DR/EC) 20 mg PO DAILY Qty: 90 0RF Rx Instructions: @08:00 Caltrate 600-D Plus Minerals 600 mg calcium- 800 unit-50 mg tablet 1 tab PO BID@0800,1999 Qty: 60 5RF levalbuterol tartrate [Xopenex HFA] 45 mcg/actuation HFA aerosol inhaler 2 inh inhalation Q6H Qty: 15 3RF Rx Instructions: @00:00,06:00,12:00,18:00 cetirizine [Zyrtec] 10 mg tablet 10 mg PO DAILY@0800 Atrovent HFA 17 mcg/actuation Hfa Aerosol Inhaler 1 puff INHALATION QID Rx Instructions: @02:00,08:00,14:00,20:00 lidocaine 5 % Adhesive Patch,Medicated See Rx Instructions .ROUTE .COMPLEX Rx Instructions: apply one patch topicallyto low back in the morning, take off at bedtime. Press firmly for 10-15 seconds when applying. chlorhexidine gluconate 0.12 % mouthwash See Rx Instructions .ROUTE .COMPLEX Rx Instructions: rinse with 15 mL for 30 seconds and spit, use twice daily after brushing and flossing Alive Women's 50 Plus (blend) 240-120-300 mcg Tablet 1 tab PO DAILY@08 acetaminophen 325 mg Tablet 650 mg PO Q6H PRN (Reason: Pain) hydrocodone-acetaminophen 7.5-325 mg Tablet 1 tab PO .EVERY 4-6 HOURS PRN (Reason: Pain) calcium carbonate [Calcium Antacid] 200 mg calcium (500 mg) Tablet,Chewable 200 mg PO QID PRN (Reason: gerd) tramadol 50 mg tablet 50 mg PO TID PRN (Reason: Pain) guaifenesin 200 mg Tablet 200 mg PO Q4H PRN (Reason: Congestion) Mucus Relief 400 mg Tablet 400 mg PO BID@08,20 Rx Instructions: with 8oz glass of water Vitamin D3 50 mcg (2,000 unit) Capsule 100 mcg PO DAILY@08 levalbuterol HCl 0.63 mg/3 mL Solution For Nebulization 0.63 mg INHALATION TID PRN (Reason: Shortness Of Breath) Milk of Magnesia 400 mg/5 mL Suspension 30 ml PO DAILY PRN (Reason: Constipation) Held furosemide 20 mg tablet 20 mg PO DAILY@0800 Qty: 60 2RF Hold Instructions: Resume on 07/27/23. potassium chloride 20 mEq Tablet Extended Release 10 meq PO QAM Qty: 60 2RF Hold Instructions: Resume on 07/27/23. amlodipine 10 mg tablet 10 mg PO DAILY Qty: 60 1RF Hold Instructions: Resume on 07/26/23. Rx Instructions: @08:00 metoprolol tartrate 25 mg tablet 25 mg PO BID Qty: 60 3RF Hold Instructions: Resume on 07/27/23. Discontinued naproxen 500 mg Tablet 500 mg PO BID@08,20 valsartan 40 mg Tablet 40 mg PO DAILY@08 valsartan 40 mg Tablet 40 mg PO DAILY PRN (Reason: bp >130/80) Discharge Orders: Discharge Order (Routine); Ordered 07/22/23 Ordered By: Liang Rivera Referrals: Apolonia Li, WEB OPERATIONS SPECIALIST [Primary Care Provider] - (We have notified your physician's clinic of the need for a follow-up appointment to be scheduled. If you have not heard from them within the next 2 business days, please call them directly. You may also reach out to our accounting manager controller at [phone] and she can assist you.FAXED FOR APPOINTMENT) Discharge Diet: Cardiac Patient Instructions: Hyponatremia (ED), Benzodiazepine Use Disorder (ED), Dementia (ED), Non-diabetic Hypoglycemia (ED), Hypoglycemia in a Person with Diabetes (ED), Concussion (ED), Alcohol Intoxication (ED), Subarachnoid Hemorrhage (GEN), Altered Mental Status (ED), Opioid Safety Discharge Attestations Time Spent in Discharge Care*: greater than 30 min Status at Discharge: Cognitive status at discharge: cognitively intact, Behavioral status at discharge: cooperative, Quality Metrics Clinical Quality Measures [ No reported AMI, CVA or VTE this stay] Coding Level of Care Code Acute Code for Chg Fwd Diagnoses Acute renal failure superimposed on chronic kidney disease N17.9; N18.9 Altered mental status R41.0 Altered mental status type: disorientation Urinary tract infection N30.00 Hematuria presence: without hematuria Urinary tract infection type: acute cystitis Acute hypotension I95.9
[2023-07-22] MEDS: sodium chloride 0.9% 250 ML IV (09:25)
--- NOTE | 2023-07-22 10:03 | PC.NURSE ---
dc pending finish of iv bolus
[2023-07-22] MEDS: acetaminophen 325 mg Tablet PO (10:45)
--- NOTE | 2023-07-22 11:05 | PC.NURSE ---
bolus finished, dc now pending arrival of transport
== END 2023-07-22 13:00 | disposition home or self-care (01) | DRG 689 ==
LOC: ER 22:07 → MEDSURG 23:07
PROVIDERS: Admitting Provider Internal Medicine; Emergency Provider Emergency Medicine; PCP Nurse Practitioner Family; Visit Provider Internal Medicine
DX: N30.00 Acute cystitis without hematuria (principal); G93.41 Metabolic encephalopathy; I13.0 Hypertensive heart and chronic kidney disease with heart failure and stage 1 through stage 4 chronic kidney disease, or unspecified chronic kidney disease; I69.954 Hemiplegia and hemiparesis following unspecified cerebrovascular disease affecting left non-dominant side; E87.1 Hypo-osmolality and hyponatremia; J96.11 Chronic respiratory failure with hypoxia; N17.9 Acute kidney failure, unspecified; I50.9 Heart failure, unspecified; N18.9 Chronic kidney disease, unspecified; Z99.3 Dependence on wheelchair; I95.2 Hypotension due to drugs; T44.7X5A Adverse effect of beta-adrenoreceptor antagonists, initial encounter; T50.1X5A Adverse effect of loop [high-ceiling] diuretics, initial encounter; Z99.81 Dependence on supplemental oxygen; Z79.891 Long term (current) use of opiate analgesic; J44.9 Chronic obstructive pulmonary disease, unspecified; E03.9 Hypothyroidism, unspecified; M81.0 Age-related osteoporosis without current pathological fracture; Z96.642 Presence of left artificial hip joint; Z87.891 Personal history of nicotine dependence; E86.0 Dehydration
CPT/HCPCS: 36415; 36600; 51701; 71045; 80048; 80051; 80053; 81001; 82330; 82805; 83605; 83735; 83880; 85025; 87040; 87077; 87086; 87186; 87426; 93005; 94640; 96365; 96372; 99285; J0744; J1650; J2543; J3490; J7030; J7050; J7626

== ENCOUNTER → 2023-07-30 10:32 | Outpatient (BNVA) | payer OTHER, SELFPAY | PROVIDERS: PCP Nurse Practitioner Family; Visit Provider Internal Medicine Pulmonary Disease | DX: J96.11 Chronic respiratory failure with hypoxia (principal); J98.4 Other disorders of lung; G70.9 Myoneural disorder, unspecified; Z87.891 Personal history of nicotine dependence; Z99.81 Dependence on supplemental oxygen | CPT/HCPCS: 99214 ==